=== PATIENT | male | born 1940 | race Caucasian/White ===

== ENCOUNTER → 2018-02-17 06:02 | Outpatient (CLI) | payer MEDICARE, OTHER, SELFPAY ==
[2018-02-17 07:52] LABS: AST(SGOT) 21 U/L (15-37); Alanine Aminotransfer ALT/SGPT 21 U/L (16-61); Albumin, Serum 3.7 g/dL (3.2-5.0); Alkaline Phosphatase 77 U/L (45-117); Bilirubin, Direct 0.32 mg/dL (0.00-0.30); Cholesterol 108 mg/dL (200); High Density Lipoprotein 51 mg/dL; Protein, Total 6.7 g/dL (6.4-8.2); Triglycerides 60 mg/dL; Very Low Density Lipoprotein 12 mg/dL (5-40)
== END ==
PROVIDERS: Family Provider Family Medicine Geriatric Medicine; PCP Family Medicine Geriatric Medicine; Visit Provider Nurse Practitioner Family
DX: E78.5 Hyperlipidemia, unspecified (principal); Z79.899 Other long term (current) drug therapy
CPT/HCPCS: 36415; 80061; 80076

== ENCOUNTER → 2018-03-31 15:12 | Outpatient (CLI) | payer MEDICARE, OTHER, SELFPAY ==
[2018-03-31 16:44] LABS: Absolute Lymphocyte Count 1.12 X10^3/ul (0.83-4.51); Absolute Neutrophil Count 1.7 X10^3/uL (2.0-7.7); Basophil# 0.02 X10^3/uL; Basophil% 0.6 % (0-1); Eosinophil# 0.11 X10^3/uL; Eosinophils% 3.3 % (0-5); Hematocrit 36.3 % (40-54); Hemoglobin 11.7 g/dl (13.0-16.5); Lymphocyte # 1.12 X10^3/ul (4.0); Lymphocyte % 33.1 % (19-41); Mean Corp Hgb Conc 32.2 g/gl (32-36); Mean Corpuscular Hgb 30.6 pg (27.0-32.0); Monocyte# 0.45 X10^3/uL; Monocyte% 13.3 % (0-10); Neutrophil # 1.68 X10^3/uL (2.7-7.7); Neutrophil % 49.7 % (47-70); Platelet Count 219 K/mm3 (150-450); RBC Distribution Width CV 13.2 % (11.6-14.6); RBC Distribution Width SD 45.6 fl (35.1-43.9); Red Blood Count 3.82 M/mm3 (4.6-6.2); White Blood Count 3.4 K/mm3 (4.4-11.0)
[2018-03-31 16:56] LABS: Anion Gap 7 (5-15); BUN 19 mg/dL (7-18); BUN/Creat Ratio 16.7 RATIO (10-20); Calcium,Total 8.4 mg/dL (8.5-10.1); Chloride 106 mmol/L (98-107); Creatinine, Serum 1.14 mg/dL (0.70-1.30); EST Glomerular Filtration Rate 66 mL/min (>60); Est Glom Filt Rate - Afr Amer 80 mL/min (>60); Glucose 89 mg/dL (74-106); Potassium 4.2 mmol/L (3.5-5.1); Sodium Level 141 mmol/L (136-145)
[2018-03-31 17:11] LABS: POSITIVE COUNT NO; POSITIVE DIFFERENTIAL NO; POSITIVE MORPHOLOGY NO
== END ==
PROVIDERS: Family Provider Family Medicine Geriatric Medicine; PCP Family Medicine Geriatric Medicine; Visit Provider Family Medicine Geriatric Medicine
DX: R42 Dizziness and giddiness (principal)
CPT/HCPCS: 36415; 80048; 85025

== ENCOUNTER → 2018-05-21 08:44 | Outpatient (CLI) | payer MEDICARE, OTHER, SELFPAY ==
[2018-05-21 10:47] LABS: Absolute Lymphocyte Count 1.04 X10^3/ul (0.83-4.51); Absolute Neutrophil Count 2.4 X10^3/uL (2.0-7.7); Basophil# 0.01 X10^3/uL; Basophil% 0.2 % (0-1); Eosinophil# 0.13 X10^3/uL; Eosinophils% 3.2 % (0-5); Hematocrit 37.1 % (40-54); Hemoglobin 11.9 g/dl (13.0-16.5); Lymphocyte # 1.04 X10^3/ul (4.0); Lymphocyte % 25.5 % (19-41); Mean Corp Hgb Conc 32.1 g/gl (32-36); Mean Corpuscular Hgb 31.2 pg (27.0-32.0); Mean Corpuscular Volume 97.4 fL (80-94); Mean Platelet Vol. 9.9 fl (6.2-12.0); Monocyte# 0.47 X10^3/uL; Monocyte% 11.5 % (0-10); Neutrophil # 2.43 X10^3/uL (2.7-7.7); Neutrophil % 59.6 % (47-70); Platelet Count 229 K/mm3 (150-450); RBC Distribution Width SD 44.8 fl (35.1-43.9); Red Blood Count 3.81 M/mm3 (4.6-6.2); White Blood Count 4.1 K/mm3 (4.4-11.0)
[2018-05-21 10:49] LABS: POSITIVE COUNT NO; POSITIVE DIFFERENTIAL NO; POSITIVE MORPHOLOGY NO
[2018-05-21 11:09] LABS: ALB/GLOB Ratio 1.1 RATIO (0.9-2.4); AST(SGOT) 19 U/L (15-37); Alanine Aminotransfer ALT/SGPT 23 U/L (16-61); Albumin, Serum 3.5 g/dL (3.2-5.0); Alkaline Phosphatase 76 U/L (45-117); Anion Gap 6 (5-15); BUN 25 mg/dL (7-18); BUN/Creat Ratio 20.5 RATIO (10-20); Calcium,Total 8.6 mg/dL (8.5-10.1); Chloride 106 mmol/L (98-107); Creatinine, Serum 1.22 mg/dL (0.70-1.30); EST Glomerular Filtration Rate 61 mL/min (>60); Est Glom Filt Rate - Afr Amer 74 mL/min (>60); Globulin 3.1 g/dL (2.2-4.2); Glucose 86 mg/dL (74-106); Potassium 4.5 mmol/L (3.5-5.1); Protein, Total 6.6 g/dL (6.4-8.2); Sodium Level 141 mmol/L (136-145); Thyroid Stim Hormone (TSH) 1.13 uIU/mL (0.358-3.74); Uric Acid 4.3 mg/dL (3.5-7.2)
[2018-05-21 11:12] LABS: Vitamin D,25 Hydroxy 27.1 ng/mL (29.95-100.01)
== END ==
PROVIDERS: Family Provider Family Medicine Geriatric Medicine; PCP Family Medicine Geriatric Medicine; Visit Provider Family Medicine Geriatric Medicine
DX: I10 Essential (primary) hypertension (principal); M10.9 Gout, unspecified; E55.9 Vitamin D deficiency, unspecified
CPT/HCPCS: 36415; 80053; 82306; 84443; 84550; 85025

== ENCOUNTER → 2018-10-30 10:33 | Outpatient (CLI) | payer MEDICARE, OTHER, SELFPAY ==
[2018-09-29 12:01] VITALS: BMI 36.6
[2018-10-30 12:36] LABS: Absolute Lymphocyte Count 0.94 X10^3/ul (0.83-4.51); Basophil# 0.03 X10^3/uL; Basophil% 0.9 % (0-1); Eosinophils% 2.9 % (0-5); Lymphocyte # 0.94 X10^3/ul (4.0); Lymphocyte % 27.1 % (19-41); Mean Corp Hgb Conc 31.6 g/gl (32-36); Mean Corpuscular Hgb 29.8 pg (27.0-32.0); Mean Corpuscular Volume 94.3 fL (80-94); Mean Platelet Vol. 10.5 fl (6.2-12.0); Monocyte# 0.42 X10^3/uL; Monocyte% 12.1 % (0-10); Neutrophil # 1.97 X10^3/uL (2.7-7.7); Neutrophil % 56.7 % (47-70); Platelet Count 228 K/mm3 (150-450); RBC Distribution Width CV 13.5 % (11.6-14.6); RBC Distribution Width SD 46.2 fl (35.1-43.9); Red Blood Count 4.03 M/mm3 (4.6-6.2); White Blood Count 3.5 K/mm3 (4.4-11.0)
[2018-10-30 12:39] LABS: POSITIVE COUNT NO; POSITIVE DIFFERENTIAL NO; POSITIVE MORPHOLOGY NO
[2018-10-30 12:54] LABS: Vitamin D,25 Hydroxy 36.8 ng/mL (29.95-100.01)
[2018-10-30 12:59] LABS: ALB/GLOB Ratio 1.1 RATIO (0.9-2.4); AST(SGOT) 20 U/L (15-37); Alanine Aminotransfer ALT/SGPT 23 U/L (16-61); Albumin, Serum 3.5 g/dL (3.2-5.0); Alkaline Phosphatase 74 U/L (45-117); Anion Gap 8 (5-15); BUN 26 mg/dL (7-18); BUN/Creat Ratio 21.8 RATIO (10-20); Calcium,Total 8.6 mg/dL (8.5-10.1); Chloride 107 mmol/L (98-107); Creatinine, Serum 1.19 mg/dL (0.70-1.30); EST Glomerular Filtration Rate 63 mL/min (>60); Est Glom Filt Rate - Afr Amer 76 mL/min (>60); Globulin 3.2 g/dL (2.2-4.2); Glucose 95 mg/dL (74-106); Potassium 4.4 mmol/L (3.5-5.1); Protein, Total 6.7 g/dL (6.4-8.2); Sodium Level 143 mmol/L (136-145); Thyroid Stim Hormone (TSH) 0.83 uIU/mL (0.358-3.74); Uric Acid 3.8 mg/dL (3.5-7.2)
== END ==
PROVIDERS: Family Provider Family Medicine Geriatric Medicine; PCP Family Medicine Geriatric Medicine; Visit Provider Family Medicine Geriatric Medicine
DX: E55.9 Vitamin D deficiency, unspecified (principal); I10 Essential (primary) hypertension
CPT/HCPCS: 36415; 80053; 82306; 84443; 84550; 85025

== ENCOUNTER → 2018-11-14 07:49 | Outpatient (CLI) | payer MEDICARE, OTHER, SELFPAY ==
--- NOTE | 2018-11-14 07:59 | RAD_ITS ---
CLINICAL HISTORY: Male, 78 years old. Chronic left shoulder pain. PROCEDURE: ARTHROGRAM - LEFT SHOULDER CONSENT: The procedure as well as the benefits and possible complications including bleeding and infection were explained to the patient. Informed consent was obtained. FLUOROSCOPY TIME (if supplied): (0:40) minutes/seconds Injection Information: 15 cc of a dilute MRI contrast. Number of images obtained: 4 TECHNIQUE: (All elements of maximal sterile barrier technique followed, including US elements as applicable) The patient was in the supine position. The overlying skin was prepped and draped in the usual sterile fashion. Following local anesthetic application and under direct fluoroscopic guidance, a 22-gauge spinal needle was placed into the shoulder joint. 2 cc of Isovue-300 was injected for confirmation. Following this, 15 cc of dilute MRI contrast was injected. The patient tolerated the procedure well. A CT scan will follow. RAD/Arthrogram Shoulder IMPRESSION: Successful left shoulder arthrogram with injection of 15 cc of dilute MR contrast for CT examination. Electronically Signed: Zen Katz MD at 11:17 EST Tel [phone], Service support ,
--- NOTE | 2018-11-14 08:00 | CT_ITS ---
STUDY: CT LEFT SHOULDER REASON FOR EXAM: Male, 78 years old. Left shoulder pain status post arthrogram. RADIATION DOSAGE (If Supplied By Facility): CTDIvol = ( 49 ) mGy, DLP = ( 1248 ) mGycm TECHNIQUE: The patient was scanned in a multi detector CT scanner. High resolution transaxial imaging was performed without the administration of intravenous contrast material. Sagittal and coronal images were reconstructed. Individualized dose optimization techniques were used for this CT. COMPARISON: None. FINDINGS: There is severe osteoarthritis, with severe articular joint space narrowing, osteoarthritic spurring, articular remodeling, and with articular erosions. There is near ufrw-ve-agmu articulation of the superior humeral head abutting the underlying acromion. Sclerotic changes of the glenoid rim are present consistent with arthrosis. Demineralization of the humeral head and visualized humerus are present. Normal coracoid process. Normal visualized lateral clavicle. There is moderate osteoarthritis with articular joint space narrowing and with osteoarthritic spurring. There is a Type II morphology (curved), with a neutral orientation. Normal visualized muscles and soft tissue structures. CT/Extremity Upper WITH Contrast IMPRESSION: 1. Severe glenohumeral arthrosis with high riding humeral head abutting the underlying acromion consistent with supraspinatus complete tear the appropriate clinical setting. Additional degenerative changes and demineralization as described above. Electronically Signed: Santiago Pantoja DO at 8:45 EST , Service support ,
== END ==
PROVIDERS: Family Provider Family Medicine Geriatric Medicine; PCP Family Medicine Geriatric Medicine; Referring Provider Family Medicine Geriatric Medicine; Visit Provider Family Medicine Geriatric Medicine
DX: M75.50 Bursitis of unspecified shoulder (principal); M25.519 Pain in unspecified shoulder
CPT/HCPCS: 23350; 73040; 73201; Q9967; A9577

== ENCOUNTER → 2019-04-21 07:42 | Outpatient (CLI) | payer MEDICARE, OTHER, SELFPAY ==
[2019-04-02 15:13] VITALS: BMI 34.2
--- NOTE | 2019-04-21 07:44 | ECHOD_ITS ---
Reason For Study: CHF Procedure This was a 2D Doppler, Color Flow transthoracic echocardiogram. Exam performed in department. Left Ventricle Mild concentric left ventricular hypertrophy. The estimated ejection fraction is 65 %. Stage 1 diastolic dysfunction. No regional wall motion abnormalities noted. Right Ventricle Normal size and thickness. ICD or pacer leads identified within the right ventricle. Normal systolic function. Atria The left atrium is moderately enlarged. Normal right atrium. Normal atrial septum. Mitral Valve The mitral valve is structurally normal. No prolapse or stenosis seen. Trivial mitral valve insufficiency. Tricuspid Valve Normal tricuspid valve. Trivial tricuspid valve insufficiency. Right ventricular systolic pressure estimated to be 38 mmHg. Mild pulmonary hypertension. Aortic Valve Trisinus/trileaflet aortic valve. Mild diffuse aortic valve thickening. Mild (1+) aortic valve insufficiency. Pulmonic Valve Normal pulmonic valve. Trivial pulmonic valve insufficiency. Great Vessels Mildly dilated aortic root. Normal arch. Normal inferior vena cava. Inferior vena cava collapse with sniff. Pericardium/Pleural No pericardial effusion. MMode/2D Measurements & Calculations LVIDd: 6.0 cm IVSd: 1.4 cm LVOT diam: 2.4 cm LVIDs: 4.2 cm LVPWd: 1.3 cm LVOT area: 4.6 cm2 RVDd: 3.4 cm FS: 30.7 % Ao root diam: 4.1 cm LAV(MOD-bp): 98.7 ml LA A4 area: 27.9 cm2 LAV(MOD-bp) Indexed: 43.3 ml/m2 LAV(MOD-sp2): 99.3 ml LAV(MOD-sp4): 99.0 ml LA dimension(2D): 4.2 cm Doppler Measurements & Calculations MV E max estuardo: 39.9 cm/sec Lat Peak E' Estuardo: 4.7 cm/sec Med Peak E' Estuardo: 4.1 cm/sec MV A max estuardo: 79.3 cm/sec E/E' lat: 8.5 E/E' med: 9.7 MV E/A: 0.50 Ao V2 max: 122.0 cm/sec AI max estuardo: 376.8 cm/sec LV V1 max: 97.4 cm/sec Ao max P.0 mmHg AI max P.8 mmHg LV V1 max P.8 mmHg Ao V2 mean: 91.6 cm/sec LV V1 mean P.0 mmHg Ao mean P.6 mmHg AI dec slope: 155.7 cm/sec2 LV V1 mean: 67.7 cm/sec Ao V2 VTI: 27.9 cm AI P1/2t: 708.9 msec LV V1 VTI: 21.0 cm CHENG(I,D): 3.5 cm2 CHENG(V,D): 3.7 cm2 SV(LVOT): 96.3 ml PA V2 max: 106.7 cm/sec TR max estuardo: 276.7 cm/sec TR max P.7 mmHg Interpretation Summary The estimated ejection fraction is 65 %. Stage 1 diastolic dysfunction. The left atrium is moderately enlarged. Trivial mitral valve insufficiency. Trivial tricuspid valve insufficiency. Right ventricular systolic pressure estimated to be 38 mmHg. Mild pulmonary hypertension. Mild (1+) aortic valve insufficiency. Mildly dilated aortic root. Compared to echo report dated 09/10/2017, LV function has remained the same, RVSP has increased from 22 to 38 mm Hg. Ordering Physician: Dov Loja Referring Physician: Richard Morley Chi Performed By: Mena Barnhart, MAYITO, RVT
== END ==
PROVIDERS: Family Provider Family Medicine Geriatric Medicine; PCP Family Medicine Geriatric Medicine; Referring Provider Internal Medicine Cardiovascular Disease; Visit Provider Internal Medicine Cardiovascular Disease
DX: I44.7 Left bundle-branch block, unspecified (principal)
CPT/HCPCS: 93306

== ENCOUNTER → 2019-04-23 08:27 | Outpatient (CLI) | payer MEDICARE, OTHER, SELFPAY ==
[2019-04-02 15:13] VITALS: BMI 34.2
--- NOTE | 2019-04-23 08:28 | STE_ITS ---
Reason For Study: CHF Stress Results Protocol: Dobutatmine Stress Echo Maximum Predicted HR: 144 bpm Target HR: 122 bpm % Maximum Predicted HR: 88 % DurationHeart Rate Stage (mm:ss) (bpm) BP Dose Comment BASELINE 60 198/91 NTG 0.4 MG SL GIVEN @ 0933. BP 157/87 ADDIS PROTOCOL- STAGE 1 3:23 64 161/8910.00PACED, ISOLATED PVCS, BIGEMINY NO CP ADDIS PROTOCOL- STAGE 2 3:08 120 131/6420.00PACED, NO CP ADDIS PROTOCOL- STAGE 3 2:54 126 .00PACED, NO CP RECOVERY 61 146/80 ISOLATED PVCS, COUPLETS, TRIPLETS Stress Duration: 9:25 mm:ss Maximum Stress HR: 126 bpm Baseline Echocardiogram Findings The estimated ejection fraction is 55 %. Stress Echo Wall motion Data Resting WM Intermediate WM Stress WM Resting Wall Motion Wall Motion Stress No regional wall motion No regional wall motion abnormalities noted. abnormalities noted. EKG Data DDD paced rhythm. The patient was titrated from 10 mcg to a maximun of 30 mcg of dobutamine during the stress. The maximum heart rate attained was 126 beats per minute. This was 87% of maximum predicted heart rate. During dobutamine infusion, there were no ST or T wave changes noted to suggest ischemia. No clinical angina was noted. Interpretation Summary The estimated ejection fraction is 55 %. Normal, adequate, dobutamine echocardiogram. Negative for ischemia by EKG and echocardiographic anterior. No anginal symptoms noted. Rare PVCs noted. Patient transitioned into a paced ventricular rhythm during infusion. Baseline moderate hypertension requiring sublingual nitroglycerin prior to his infusion, with hypertensive blood pressure response to dobutamine. Rare ventricular couplet which is a nonspecific finding given dobutamine. Final LVEF is 75%. Test terminated due to the attainment of target heart rate. No complications. Ordering Physician: Dov Loja Referring Physician: Dov Loja Performed By: Mena Barnhart, MAYITO, RVT
== END ==
PROVIDERS: Family Provider Family Medicine Geriatric Medicine; PCP Family Medicine Geriatric Medicine; Referring Provider Internal Medicine Cardiovascular Disease; Visit Provider Internal Medicine Cardiovascular Disease
DX: I48.0 Paroxysmal atrial fibrillation (principal); Z95.810 Presence of automatic (implantable) cardiac defibrillator; Z98.890 Other specified postprocedural states; I10 Essential (primary) hypertension; I42.0 Dilated cardiomyopathy
CPT/HCPCS: 93017; 93350; J7040; A4216

== ENCOUNTER → 2019-05-05 10:03 | Outpatient (CLI) | payer MEDICARE, OTHER, SELFPAY ==
[2019-04-02 15:13] VITALS: BMI 34.2
[2019-05-05 12:45] LABS: Absolute Lymphocyte Count 0.93 X10^3/ul (0.83-4.51); Absolute Neutrophil Count 2.8 X10^3/uL (2.0-7.7); Basophil# 0.03 X10^3/uL; Basophil% 0.7 % (0-1); Eosinophil# 0.19 X10^3/uL; Eosinophils% 4.1 % (0-5); Hematocrit 36.5 % (40-54); Hemoglobin 11.6 g/dl (13.0-16.5); Lymphocyte # 0.93 X10^3/ul (4.0); Lymphocyte % 20.3 % (19-41); Mean Corp Hgb Conc 31.8 g/gl (32-36); Mean Corpuscular Hgb 30.3 pg (27.0-32.0); Mean Corpuscular Volume 95.3 fL (80-94); Mean Platelet Vol. 10.4 fl (6.2-12.0); Monocyte# 0.61 X10^3/uL; Monocyte% 13.3 % (0-10); Neutrophil # 2.82 X10^3/uL (2.7-7.7); Neutrophil % 61.6 % (47-70); Platelet Count 223 K/mm3 (150-450); RBC Distribution Width CV 13.6 % (11.6-14.6); RBC Distribution Width SD 46.8 fl (35.1-43.9); Red Blood Count 3.83 M/mm3 (4.6-6.2); White Blood Count 4.6 K/mm3 (4.4-11.0)
[2019-05-05 12:59] LABS: Vitamin D,25 Hydroxy 27.8 ng/mL (29.95-100.01)
[2019-05-05 13:07] LABS: ALB/GLOB Ratio 1.1 RATIO (0.9-2.4); AST(SGOT) 18 U/L (15-37); Alanine Aminotransfer ALT/SGPT 20 U/L (16-61); Albumin, Serum 3.5 g/dL (3.2-5.0); Alkaline Phosphatase 91 U/L (45-117); Anion Gap 3 (5-15); BUN 21 mg/dL (7-18); BUN/Creat Ratio 16.7 RATIO (10-20); Calcium,Total 8.9 mg/dL (8.5-10.1); Chloride 106 mmol/L (98-107); Creatinine, Serum 1.26 mg/dL (0.70-1.30); EST Glomerular Filtration Rate 59 mL/min (>60); Est Glom Filt Rate - Afr Amer 71 mL/min (>60); Globulin 3.1 g/dL (2.2-4.2); Glucose 80 mg/dL (74-106); Potassium 4.3 mmol/L (3.5-5.1); Protein, Total 6.6 g/dL (6.4-8.2); Sodium Level 139 mmol/L (136-145); Thyroid Stim Hormone (TSH) 0.88 uIU/mL (0.358-3.74); Uric Acid 4.5 mg/dL (3.5-7.2)
[2019-05-05 13:12] LABS: POSITIVE COUNT NO; POSITIVE DIFFERENTIAL NO; POSITIVE MORPHOLOGY NO
== END ==
PROVIDERS: Family Provider Family Medicine Geriatric Medicine; PCP Family Medicine Geriatric Medicine; Visit Provider Family Medicine Geriatric Medicine
DX: I10 Essential (primary) hypertension (principal); E55.9 Vitamin D deficiency, unspecified; M10.9 Gout, unspecified
CPT/HCPCS: 36415; 80053; 82306; 84443; 84550; 85025

== ENCOUNTER → 2019-05-26 17:16 | Outpatient (CLI) | payer MEDICARE, OTHER, SELFPAY ==
[2019-04-02 15:13] VITALS: BMI 34.2
--- NOTE | 2019-05-26 17:19 | CT_ITS ---
STUDY: CT LUMBAR SPINE WITH CONTRAST REASON FOR EXAM: Male, 79 years old. DISC DEGENERATION. R/O NEURAL IMPINGEMENT. RADIATION DOSAGE (If Supplied By Facility): CTDIvol = ( 33.93 ) mGy, DLP = ( 943.58 ) mGycm TECHNIQUE: The patient was scanned in a multi detector CT scanner. High resolution transaxial imaging was performed following the intravenous administration of 100ML IV Isovue 300. Sagittal and coronal images were reconstructed. Individualized dose optimization techniques were used for this CT. COMPARISON: 03/26/2012 FINDINGS: Since prior exam patient has had fusion at L3-L4. Partial fusion at L4-L5 is stable. Otherwise stable multilevel degenerative disc disease and loss of disc height and vacuum phenomenon. Multilevel spondylosis. No compression fractures or definite acute abnormalities. There is straightening. There is normal lordosis. There is rightward shift of L3 on L4 which is worse than on the prior exam. Axial images show: T12-L1 shows no spinal stenosis or neural foraminal narrowing. L1-L2 shows broad disc bulge worse to the left. Moderate spinal stenosis. Moderate bilateral neural foraminal narrowing. L2-L3 shows moderate spinal stenosis. Moderate narrowing of the right neural foramina. Severe narrowing of the left neural foramina. L3-L4 shows broad disc bulge. Mild spinal stenosis. Moderate narrowing of the right neural foramina. Severe narrowing of the left neural foramina. L4-L5 shows broad disc bulge. No spinal stenosis. Moderate to severe narrowing of the right neural foramina. Moderate narrowing of left neural foramina. L5-S1 shows no spinal stenosis. Moderate bilateral neural foraminal narrowing. Visualized paraspinal soft tissues and structures show no definite acute abnormalities. CT/Spine Lumbar WITH Contrast IMPRESSION: Progressive rightward slip of L3 on L4 that there is now also fusion of the L3-L4 disc space. Multilevel moderate to severe degenerative changes grossly stable. Multilevel spinal stenosis and neural foraminal narrowing. Electronically Signed: Mariusz Mcfarland MD at 19:01 EDT , Service support ,
== END ==
PROVIDERS: Family Provider Family Medicine Geriatric Medicine; PCP Family Medicine Geriatric Medicine
DX: M51.36 Other intervertebral disc degeneration, lumbar region (principal)
CPT/HCPCS: 72132; Q9967

== ENCOUNTER → 2019-08-31 14:08 | Outpatient (CLI) | payer MEDICARE, OTHER, SELFPAY ==
[2019-04-02 15:13] VITALS: BMI 34.2
[2019-08-31 17:07] LABS: Amphetamine Urine VISTA NEGATIVE (<1000 ng/mL); Barbiturate Urine VISTA NEGATIVE (< 200 ng/mL); Benzodiazepine Urine VISTA NEGATIVE (< 200 ng/mL); Cocaine Urine VISTA NEGATIVE (< 300 ng/mL); Ecstacy Urine VISTA NEGATIVE (< 500 ng/mL); Methadone Urine VISTA NEGATIVE (< 300 ng/mL); PCP Urine VISTA NEGATIVE (< 25 ng/mL); THC Urine VISTA NEGATIVE (< 50 ng/mL); Vista UDS pH Range 6
== END ==
PROVIDERS: Family Provider Family Medicine Geriatric Medicine; PCP Family Medicine Geriatric Medicine; Referring Provider Anesthesiology Pain Medicine; Visit Provider Anesthesiology Pain Medicine
DX: F11.20 Opioid dependence, uncomplicated (principal)
CPT/HCPCS: 80307

== ENCOUNTER 2019-10-21 18:22 | Emergency (ER) | payer MEDICARE, OTHER, SELFPAY ==
[2019-04-02 15:13] VITALS: BMI 34.2
[2019-10-21 18:23] VITALS: BP 164/77; PULSE 60; RESP 18; TEMP 36.1; O2SAT 97; BMI 33.5
--- NOTE | 2019-10-21 18:37 | CT_ITS ---
STUDY: CT ABDOMEN AND PELVIS WITHOUT CONTRAST REASON FOR EXAM: Male, 79 years old. Left flank pain. History of resection for testicular cancer. Additional history of appendectomy, atrial fibrillation, pacemaker, hypertension RADIATION DOSAGE (If Supplied By Facility): CTDIvol = ( 21.86 ) mGy, DLP = ( 1081.57 ) mGycm TECHNIQUE: Transaxial images were obtained from the dome of the diaphragm to the symphysis pubis without oral contrast, and without intravenous contrast. Sagittal and coronal images were reconstructed. Individualized dose optimization techniques were used for this CT. COMPARISON: None. FINDINGS: There is tzyi-zq-uqexkbuz elevation of the right diaphragm. The visualized lung bases are clear. The heart size is normal. Leads of a cardiac pacemaker are seen in the right heart and coronary sinus. There is atherosclerotic calcification in the left anterior descending coronary artery. Too numerous to count punctate calcified granulomata are scattered throughout the normal-sized liver. The portal vein diameter is 13.5 mm. Normal gallbladder and extrahepatic biliary system. There are multiple benign calcified granulomata of the spleen. Normal pancreas. Normal bilateral adrenal glands. Multilobulated contour of the right kidney with occasional sites of focal cortical thinning. A 2.05 x 2.45 x 2.05 cm hypodense cortical cyst seen at the anterior hilar lip. There is a second 1.45 cm cortical cyst at the lateral midpole. A pair of 1-2 mm calcifications in the upper pole may be nonobstructing stones. There is a nonobstructing 10.5 x 6 x 4.5 mm stone in the distal most right ureter near the ureterovesical junction. Lobulated contour and multifocal cortical thinning of the left kidney 1.9 x 1.95 x 2.15 cm cortical cyst seen in the lateral midpole. There are a few other subcentimeter cortical cysts, as well as 1.45 old Notify bone 25 cm hypodensity at the corticomedullary junction of the posterior midpole that could be an additional cyst or dilated calyx. No hydronephrosis, however. There is a small to moderate-sized hiatal hernia. Normal small intestine. There is some cephalad retraction of the cecum, otherwise normal colon. There is non-visualization of the appendix. There is diffuse moderate atherosclerotic calcification of the abdominal aorta and proximal iliac arteries, slight uniform ectasia but without a demonstrated focal aneurysm. Normal inferior vena cava. Normal retroperitoneum. Normal urinary bladder. Normal visualized prostate gland. Normal abdominal wall. There are diffuse degenerative changes of the visualized lumbar spine with multilevel bridging anterolateral endplate osteophyte. There is a fused 1.3 cm rightward displacement of L3 on L4 resulting in a mild mid lumbar S-shaped scoliosis. There is degenerative arthrosis with near bridging anterior osteophytes at the inferior aspect of the right sacroiliac joint. CT/Abdomen/Pelvis without Cont IMPRESSION: 1. Nonobstructing 10 mm stone in the distal most right ureter. A pair of 1-2 mm nonobstructing stones are also seen in the right upper pole. No hydronephrosis. 2. Bilateral renal cortical cysts and occasional sites of focal bilateral renal cortical thinning, as noted. 3. There are findings of old calcified granulomatous disease involving the liver and spleen. 4. Atherosclerotic vascular calcifications present. Slight uniform ectasia of the abdominal aorta, but no defined aneurysm. 5. Small to moderate-sized hiatal hernia. 6. Some cephalad retraction of the cecum is incidentally noted. The appendix is not visualized. No sign of bowel injection. 7. Eaqi-hf-uoycoati elevation of right diaphragm. 8. Rightward displacement of L3 on L4 resulting in a mild mid lumbar S-shaped scoliosis. There are degenerative changes of the spine with multilevel bridging anterolateral endplate osteophyte. Near bridging osteophytes also seen at the inferior right sacroiliac joint. Electronically Signed: Troy Browne MD at 19:41 EST , Service support ,
--- NOTE | 2019-10-21 18:39 | ED.DCSUM_ITS ---
- ER Visit Summary Date of Service: 10/21/19 Chief Complaint: Flank pain History of Present Illness: The patient is a 79 M who presents with left flank pain that has been waxing and waning over the past few days. Patient describes his pain is sharp and stabbing. Patient states his pain improved after having a bowel movement. Patient states his pain is recurred. Patient states the pain is localized to the left lower abdomen and left flank. Patient denies any nausea or vomiting. Patient denies any melena or hematochezia. Patient denies any diarrhea. Patient denies any dysuria or hematuria. Patient denies any fevers or chills. Physical Examination: Vital signs are stable. Patient is afebrile. Patient is in no acute distress. Oral mucosa is pink and moist. Neck is supple. Trachea is midline. There is no JVD. Heart was regular rate and rhythm. Lungs are clear and equal bilaterally. Abdomen is soft. Bowel sounds are normal. There is mild left lower quadrant tenderness. There is some mild left CVA tenderness. There is no rebound or guarding noted. Cranial nerves II through XII are intact. There are no focal motor or sensory deficits noted. Test Results: CBC shows a mild anemia with a hemoglobin of 11.7 and hematocrit 36.5. White blood cell count was normal. BUN was 28 and creatinine was 1.32. Urinalysis does not show any evidence of urinary tract infection. CT scan of the abdomen and pelvis was obtained. There is a 10.5 x 6 x 4.5 mm stone in the distal right ureter near the ureterovesicular junction. There is no obstruction noted. There is no evidence of diverticulosis or diverticulitis. There is no left ureteral calculus noted. This was interpreted by the radiologist and reviewed by myself. Emergency Department Course and Treatment: Patient was given IV fluids and morphine here. Patient had some improvement on reevaluation. Patient was given a prescription for [place]. Patient was instructed to follow-up with his primary care physician in 5 to 7 days. Patient understood and was agreeable with the plan. All questions were answered. Disposition: Discharge home Impression: Left lower quadrant abdominal pain This note was generated with [employer] software. It may contain incorrect words, spelling, and punctuation that were not noted in review of the chart prior to signing ED Disposition - Plan for ED Patient: Disposition: Home or Assisted Living Diagnosis: Left lower quadrant abdominal pain of unknown etiology Instructions: FLANK PAIN, Uncertain Cause Prescriptions: Hydrocodone Bitart/Apap 5-325 [[place] 5MG-325MG] 1 tab PO Q6H PRN PRN 3 Days #10 tab PRN Reason: Pain Prescription Printed Referrals: Richard Morley Chi, MD [Primary Care Provider] - 3-5 Days
[2019-10-21] MEDS: Morphine 4 MG/ML Syringe IV (19:08)
[2019-10-21] MEDS: 0.9% Normal Saline 1,000 ML 1000 ML IV (19:09)
[2019-10-21 19:11] LABS: Bacteria 0 SEEN /hpf (None Seen); Red Blood Cells-Urine 0 SEEN /hpf (0-5); Squamous Epithelial Cells - UA 0 SEEN /hpf (0-5); White Blood Cells 0 SEEN /hpf (0-5)
[2019-10-21 19:15] LABS: Absolute Lymphocyte Count 1.27 X10^3/uL (0.83-4.51); Basophil# 0.03 X10^3/uL; Basophil% 0.6 % (0-1); Eosinophil# 0.15 X10^3/uL; Eosinophils% 2.9 % (0-5); Hematocrit 36.5 % (40-54); Hemoglobin 11.7 g/dL (13.0-16.5); Lymphocyte # 1.27 X10^3/ul (4.0); Lymphocyte % 24.5 % (19-41); Mean Corp Hgb Conc 32.1 g/dL (32-36); Mean Corpuscular Hgb 31.5 pg (27.0-32.0); Mean Corpuscular Volume 98.4 fL (80-94); Mean Platelet Vol. 9.3 fl (6.2-12.0); Monocyte% 13.5 % (0-10); NRBC Flagged by Analyzer 0 % (0-5); Neutrophil # 3.03 X10^3/uL (2.7-7.7); Neutrophil % 58.5 % (47-70); Platelet Count 226 K/mm3 (150-450); RBC Distribution Width CV 12.9 % (11.6-14.6); RBC Distribution Width SD 46.5 fl (35.1-43.9); Red Blood Count 3.71 M/mm3 (4.6-6.2); White Blood Count 5.2 K/mm3 (4.4-11.0)
[2019-10-21 19:16] LABS: Color, Urine Yellow (Yellow); Glucose, Dipstick Normal (Normal); Ketone-Dipstick Negative (Negative); Leukocyte Esterase-Dipstick Negative /ul (Negative); Nitrite-Dipstick Negative (Negative); Occult Blood-Urine 10 /ul (Negative); Protein-Dipstick Negative (Negative); Urine Bilirubin Dipstick Negative (Negative); Urine Clarity Clear (Clear); Urine Urobilinogen Normal (Normal)
[2019-10-21 19:28] LABS: Hyaline Cast 0-5 SEEN /lpf (0-5); Mucous, Urine 1+ /hpf (<or=2+)
[2019-10-21 19:37] LABS: ALB/GLOB Ratio 1.3 RATIO (0.9-2.4); AST(SGOT) 18 U/L (15-37); Alanine Aminotransfer ALT/SGPT 19 U/L (16-61); Albumin, Serum 3.8 g/dL (3.2-5.0); Alkaline Phosphatase 91 U/L (45-117); Anion Gap 6 (5-15); BUN 28 mg/dL (7-18); BUN/Creat Ratio 21.2 RATIO (10-20); Chloride 103 mmol/L (98-107); Creatinine, Serum 1.32 mg/dL (0.70-1.30); EST Glomerular Filtration Rate 56 mL/min (>60); Est Glom Filt Rate - Afr Amer 68 mL/min (>60); Estimated Creatinine Clearance 49.91 ml/min; Globulin 2.9 g/dL (2.2-4.2); Glucose 100 mg/dL (74-106); Lipase 78 U/L (73-393); Potassium 4.3 mmol/L (3.5-5.1); Protein, Total 6.7 g/dL (6.4-8.2); Sodium Level 139 mmol/L (136-145)
[2019-10-21 21:28] VITALS: BP 171/74
== END 2019-10-21 21:29 | disposition home or self-care (01) ==
PROVIDERS: Emergency Provider Emergency Medicine; Family Provider Family Medicine Geriatric Medicine; PCP Family Medicine Geriatric Medicine
DX: R10.9 Unspecified abdominal pain (principal); R10.32 Left lower quadrant pain; I10 Essential (primary) hypertension; I48.91 Unspecified atrial fibrillation; K44.9 Diaphragmatic hernia without obstruction or gangrene; M51.26 Other intervertebral disc displacement, lumbar region; N28.1 Cyst of kidney, acquired; Z85.47 Personal history of malignant neoplasm of testis; Z90.49 Acquired absence of other specified parts of digestive tract; Z95.0 Presence of cardiac pacemaker; E78.00 Pure hypercholesterolemia, unspecified; K21.9 Gastro-esophageal reflux disease without esophagitis
CPT/HCPCS: 74176; 80053; 81001; 83690; 85025; 96361; 96374; 99284; J7030

== ENCOUNTER 2019-10-31 16:21 | Emergency (ER) | payer MEDICARE, OTHER, SELFPAY ==
[2019-10-29 13:15] VITALS: BMI 33.2
[2019-10-31 16:22] VITALS: BP 162/84; PULSE 60; RESP 18; TEMP 36.4; O2SAT 98; BMI 34.9
--- NOTE | 2019-10-31 16:57 | CT_ITS ---
STUDY: CT BRAIN WITHOUT CONTRAST REASON FOR EXAM: Male, 79 years old. Fell today. Laceration right eye. On blood thinners RADIATION DOSAGE (If Supplied By Facility): CTDIvol = ( 44.99 ) mGy, DLP = ( 796.11 ) mGycm TECHNIQUE: Transaxial CT imaging of the brain was performed without administration of intravenous contrast material. Individualized dose optimization techniques were used for this CT. COMPARISON: None FINDINGS: Normal soft tissue structures. Normal calvarium. There is moderate cerebral atrophy with widening of the extra-axial spaces and ventricular dilatation. Normal white matter tracts of the cerebral hemispheres. Normal basal ganglia and thalami. Normal brainstem. Remote lacunar infarct left cerebellum. There is no intracranial hemorrhage. There are no findings of an acute ischemic infarction. Normal visualized paranasal sinuses. CT/Brain/Head without Contrast IMPRESSION: Chronic involutional changes of the brain. Electronically Signed: Joe Samaniego MD at 17:32 EST , Service support ,
--- NOTE | 2019-10-31 16:59 | ED.DCSUM_ITS ---
- ER Visit Summary Date of Service: 10/31/19 Chief Complaint: Tripped and fell with right-sided head injury and laceration History of Present Illness: The patient is a 79 M hx A. fib on Xarelto also hypertension and dilated cardiomyopathy. Patient was in a parking lot of a store he tripped over a parking block fell and struck the right side of his head causing laceration. Denies any headache or neck pain. Any other injuries or complaints. Physical Examination: Older male no acute distress vital signs are stable and afebrile. H EENT exam give dry reactive light. Is a laceration on his right forehead. Currently has a head dressing over it. No dental injury. Posterior scalp nontender. C-spine nontender. Trachea midline. Lungs clear to auscultation. Heart regular rate and rhythm no murmur. Chest were nontender. Abdomen soft and nontender normal bowel sounds no peritoneal signs. He is moving all 4 extremities. Neurovascular intact. He has mild decreased range of motion the left shoulder from a prior rotator cuff tear but no acute acute bony deformity or tenderness to either the upper or lower extremities. Neurologically he is awake and alert with no focal motor deficits. Test Results: CAT scan of the brain done without contrast reviewed by me read by the radiologist shows no acute intracranial bleed or fracture. Emergency Department Course and Treatment: CAT scan will occur due to him being on a blood thinner and having a moderate head injury. Suture set up will be done by nursing staff. He has a right forehead laceration that will need to be repaired. He states his tetanus is up-to-date within the last 10 years. Treatment Plan: Head injury instructions. Wound care. Suture removal in 7 days. Return if severe headache or feeling worse. Patient irregular shaped laceration right lateral eyebrow. Approximately 5 cm. It is kind of across the laceration. There is a flap which a took off. And then closed the laceration after was cleaned with Shur-Clens, washed, irrigated and explored it was locally anesthetized with lidocaine with epinephrine. I closed using 6 simple interrupted 4-0 Ethilon sutures. Proper hemostasis and wound closure was obtained. Disposition: Discharge Impression: Acute fall with right forehead injury. Right forehead laceration with ER repair of 5 cm History anticoagulated on Xarelto History of intermittent A. fib This note was generated with [employer] dictation software. It may contain incorrect words, spelling, and punctuation that were not noted in review of the chart prior to signing ED Disposition - Plan for ED Patient: Referrals: Richard Morley Chi, MD [Primary Care Provider] -
--- NOTE | 2019-10-31 18:49 | ED.DEP ---
ED Disposition - Plan for ED Patient: Disposition: Home or Assisted Living Instructions: HEAD INJURY, No Wake-Up (Adult), LACERATION, Face (Suture or Tape) Referrals: Richard Molrey Chi, MD [Primary Care Provider] - 7 Days for suture removal Additional Instructions: Ice to the area. Keep the wound clean and dry. Suture removal in 7 to 10 days. A week from Saturday I believe would be November 09 to be a good time to have them taken out. You have [address]
[2019-10-31 19:04] VITALS: BP 166/87; PULSE 60; RESP 18; O2SAT 99
== END 2019-10-31 19:10 | disposition home or self-care (01) ==
PROVIDERS: Emergency Provider Emergency Medicine; Family Provider Family Medicine Geriatric Medicine; PCP Family Medicine Geriatric Medicine
DX: S01.81XA Laceration without foreign body of other part of head, initial encounter (principal); W01.198A Fall on same level from slipping, tripping and stumbling with subsequent striking against other object, initial encounter; Y93.9 Activity, unspecified; Y92.481 Parking lot as the place of occurrence of the external cause; Y99.8 Other external cause status; I48.91 Unspecified atrial fibrillation; Z79.01 Long term (current) use 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s; I10 Essential (primary) hypertension; I42.0 Dilated cardiomyopathy
CPT/HCPCS: 12013; 70450; 99284

== ENCOUNTER → 2019-11-02 11:32 | Outpatient (CLI) | payer MEDICARE, OTHER, SELFPAY ==
[2019-10-31 16:22] VITALS: BMI 34.9
[2019-11-02 12:31] LABS: Absolute Neutrophil Count 4.1 X10^3/uL (2.0-7.7); Basophil# 0.03 X10^3/uL; Basophil% 0.5 % (0-1); Eosinophil# 0.13 X10^3/uL; Eosinophils% 2.2 % (0-5); Hematocrit 36.2 % (40-54); Hemoglobin 11.5 g/dL (13.0-16.5); Lymphocyte % 15.4 % (19-41); Mean Corp Hgb Conc 31.8 g/dL (32-36); Mean Corpuscular Volume 97.6 fL (80-94); Mean Platelet Vol. 10.5 fl (6.2-12.0); Monocyte# 0.71 X10^3/uL; Monocyte% 12.2 % (0-10); NRBC Flagged by Analyzer 0 % (0-5); Neutrophil # 4.06 X10^3/uL (2.7-7.7); Neutrophil % 69.5 % (47-70); Platelet Count 225 K/mm3 (150-450); RBC Distribution Width CV 12.9 % (11.6-14.6); RBC Distribution Width SD 46.4 fl (35.1-43.9); Red Blood Count 3.71 M/mm3 (4.6-6.2); White Blood Count 5.8 K/mm3 (4.4-11.0)
[2019-11-02 13:12] LABS: ALB/GLOB Ratio 1.1 RATIO (0.9-2.4); AST(SGOT) 21 U/L (15-37); Alanine Aminotransfer ALT/SGPT 23 U/L (16-61); Albumin, Serum 3.6 g/dL (3.2-5.0); Alkaline Phosphatase 88 U/L (45-117); Anion Gap 6 (5-15); BUN 23 mg/dL (7-18); BUN/Creat Ratio 16.7 RATIO (10-20); Calcium,Total 8.8 mg/dL (8.5-10.1); Chloride 110 mmol/L (98-107); Creatinine, Serum 1.38 mg/dL (0.70-1.30); EST Glomerular Filtration Rate 53 mL/min (>60); Est Glom Filt Rate - Afr Amer 64 mL/min (>60); Globulin 3.2 g/dL (2.2-4.2); Glucose 69 mg/dL (74-106); Potassium 3.9 mmol/L (3.5-5.1); Protein, Total 6.8 g/dL (6.4-8.2); Sodium Level 142 mmol/L (136-145); Thyroid Stim Hormone (TSH) 0.95 uIU/mL (0.358-3.74); Uric Acid 4.9 mg/dL (3.5-7.2)
== END ==
PROVIDERS: Family Provider Family Medicine Geriatric Medicine; PCP Family Medicine Geriatric Medicine; Visit Provider Family Medicine Geriatric Medicine
DX: I10 Essential (primary) hypertension (principal); E55.9 Vitamin D deficiency, unspecified; M10.9 Gout, unspecified
CPT/HCPCS: 36415; 80053; 82306; 84443; 84550; 85025

== ENCOUNTER 2019-11-06 10:01 | Day surgery (SDC) | payer MEDICARE, OTHER, SELFPAY ==
[2019-11-06 11:11] VITALS: BP 143/86; PULSE 59; RESP 16; TEMP 36.8; O2SAT 97; BMI 34.0
[2019-11-06] MEDS: Lactated Ringers 1,000 ML 100 ML IV (11:22)
[2019-11-06] MEDS: Cefazolin 2 GM in 0.9% Normal Saline 100 ML IV (12:33)
--- NOTE | 2019-11-06 13:36 | PCM.DC.URO ---
Discharge Diet: Light diet - advance as tolerated Discharge Activity: Return to Normal Activity Call your doctor if your incision/area has: Sudden Increased Bleeding Call your doctor if you observe: Fever of 101 or Higher Allergies/Adverse Reactions: Allergies No Known Allergies Allergy (Verified 11/06/19 11:10) Medications to take at Discharge Allopurinol [Zyloprim] 300 mg PO DAILY 09/20/17 Ferrous Sulfate 50 mg PO DAILY 09/20/17 Tamsulosin HCl [Flomax] 0.4 mg PO DAILY 09/20/17 Hydrocodone Bitart/Apap 5-325 [[place] 5MG-325MG] 1 tab PO Q6H PRN PRN 3 Days #10 tab 10/21/19 atorvastatin 20 mg tablet 20 mg PO QHS #90 tab 10/29/19 carvedilol 6.25 mg tablet 6.25 mg PO BID #180 tab 10/29/19 losartan 25 mg tablet 25 mg PO QDAY #90 tab 10/29/19 pantoprazole 40 mg tablet,delayed release 40 mg PO QDAY #90 tab 10/29/19 Rivaroxaban [Xarelto] 20 mg PO DAILY 10/31/19 Acetaminophen [Arthritis Pain Relief] 650 mg PO DAILY 11/05/19 Diphenhydramine HCl [Sleep Aid] 25 mg PO QHS 11/05/19 Ciprofloxacin [Cipro] 500 mg PO BID #6 tablet 11/06/19 Hydrocodone/Acetaminophen [[place] 5-325 Tablet] 1 each PO Q4H PRN PRN #14 tablet 11/06/19 Phenazopyridine [Pyridium] 100 mg PO TID #14 tablet 11/06/19 The following prescriptions were given: Ciprofloxacin [Cipro] 500 mg PO BID #6 tablet Hydrocodone/Acetaminophen [[place] 5-325 Tablet] 1 each PO Q4H PRN PRN #14 tablet PRN Reason: Pain Score 1-09/03 Phenazopyridine [Pyridium] 100 mg PO TID #14 tablet Primary Care Physician: Richard Morley Chi, MD [Primary Care Provider] - Test Results: Test results from this visit will be discussed in further detail at your follow-up appointment, if applicable. Please Follow Up With: Steve Menendez MD When: please call to make an appointment- next thrusday
--- NOTE | 2019-11-06 13:38 | OP.PCM_ITS ---
Report of Operation Date of Procedure: 11/06/19 Pre-Operative Diagnosis: Right ureteral calculi in the distal right ureter large about 10 mm Post-Operative Diagnosis: Same, mild bulbar urethral stricture Surgery/Procedure Performed:: Cystoscopy, balloon dilation of the right ureter, right ureteroscopy laser of the stone basket extraction of fragments and right stent placement, dilation of urethral stricture. Description of Surgical Findings:: 79-year-old male with a history of a stone stuck in the distal ureter currently is asymptomatic but given the size of stone less likely to get a pass on his own recommended we taken the surgery laser the stone and need a stent. Taken back to the operating room at the smooth induction of general anesthesia he was placed in dorsolithotomy position. The testicles were prepped and draped in usual sterile fashion. Went into the urethra with a 21 Cambodian rigid cystourethroscope the entire length urethra was normal pendulous urethra normal but I got to the bulbar urethra is as a annular stricture in the bulbar urethra was able to dilate it with the scope and get past it and then went to the prostate prostate was nonobstructive somewhat of a high riding bladder neck once inside the bladder identified the right ureter orifice checked the entire bladder no tumors stone seen within the bladder and then I used a wire and ran a wire up the right ureter orifice of the right ureter and over the wire advanced a 12 Cambodian 10 cm balloon dilator I then dilated the distal right ureter I then left the wire in place the next the wire went in with this SlimLine rigid ureteroscope was able to get an ureter quite easily I then used a 270 ?m laser fiber the laser the calculi into very small pieces, energy settings were 0.6 J and 18 Hz the stone finally laser little tiny pieces also pass on her own I then used a tipless basket to basket major fragments after all the major fragments were removed a smaller fragments were left I could not be basketed and then I went outside the ureter and over the wire I placed a stent it was a 6 Cambodian by 26 cm stent we left the string of the stent for easy extraction and then went back in the bladder drained the bladder with the scope and then removed the scop e of the string on the stent and the patient anesthetic was reversed plan to see him next week in about a week next no KUB is necessary and will get the stent out left the string on the stent for easy extraction. Type of Anesthesia:: General Drains: stent right side - Admit VTE Documentation VTE Present on Admission: No VTE Mechan Device Prophylaxis: SCD's
[2019-11-06 13:42] VITALS: BP 143/86; BP 175/82; PULSE 60; RESP 16; TEMP 37.1; O2SAT 98
[2019-11-06 13:45] VITALS: BP 143/86; BP 168/72; PULSE 62; RESP 16; O2SAT 99
[2019-11-06 14:00] VITALS: BP 143/86; BP 180/74; PULSE 60; RESP 16; O2SAT 99
[2019-11-06 14:06] VITALS: BP 143/86; BP 173/74; PULSE 63; RESP 16; TEMP 36.7; O2SAT 100
[2019-11-06] MEDS: HYDROcodone Bitartrate/Apap 5/325 Tablet PO (15:42)
--- NOTE | 2019-11-06 15:57 | SUR.PHASEII ---
Dr Menendez notified that the prescriptions did not go thru, that [facility] looked at the order and states that the prescriptions are neither pending or received, and that [facility], the pt's preferred pharmacy, verified that they did not have the prescriptions on their end. Dr Mancilla agreed that the prescriptions for Pyridium and Cipro be phoned in and to inform pt to use Tylenol and Ibuprofen for pain control. Prescriptions phoned in to [facility], spoke with Meliton Loya, for Cipro and Pyridium as ordered by Dr Menendez as seen in Amb Orders.
[2019-11-06] MEDS: Ibuprofen 200 MG Tablet PO (16:10)
[2019-11-06] MEDS: Phenazopyridine 95 MG Tablet PO (16:10)
[2019-11-06 16:20] VITALS: BP 143/86
[2020-05-03 11:21] LABS: Bacteria 0 SEEN /hpf (None Seen); Mucous, Urine 0 SEEN /hpf (<or=2+); Red Blood Cells-Urine 0 SEEN /hpf (0-5); White Blood Cells 0 SEEN /hpf (0-5)
[2020-05-03 11:33] LABS: Hematocrit 35.5 % (40-54); Hemoglobin 11.4 g/dL (13.0-16.5); Mean Corp Hgb Conc 32.1 g/dL (32-36); Mean Corpuscular Hgb 32.6 pg (27.0-32.0); Mean Corpuscular Volume 101.4 fL (80-94); Mean Platelet Vol. 9.3 fl (6.2-12.0); Platelet Count 239 K/mm3 (150-450); RBC Distribution Width CV 13.1 % (11.6-14.6); RBC Distribution Width SD 48.8 fl (35.1-43.9); White Blood Count 5.1 K/mm3 (4.4-11.0)
[2020-05-03 11:45] LABS: International Normalized Ratio 1.6; Prothrombin Time (Protime)PT. 18.6 SECONDS (11.7-14.9)
[2020-05-03 12:13] LABS: Anion Gap 5 (5-15); BUN 32 mg/dL (7-18); Calcium,Total 8.7 mg/dL (8.5-10.1); Chloride 107 mmol/L (98-107); Creatinine, Serum 1.28 mg/dL (0.70-1.30); EST Glomerular Filtration Rate 58 mL/min (>60); Est Glom Filt Rate - Afr Amer 70 mL/min (>60); Estimated Creatinine Clearance 49.11 ml/min; Glucose 144 mg/dL (74-106); Potassium 4.1 mmol/L (3.5-5.1); Sodium Level 140 mmol/L (136-145)
[2020-05-03 13:28] LABS: Color, Urine Yellow (Yellow); Glucose, Dipstick Normal (Normal); Ketone-Dipstick Negative (Negative); Leukocyte Esterase-Dipstick 100 /ul (Negative); Nitrite-Dipstick Negative (Negative); Occult Blood-Urine Negative /ul (Negative); Protein-Dipstick Negative (Negative); Specific Gravity, Urine 1.015 (1.002-1.030); Urine Bilirubin Dipstick Negative (Negative); Urine Clarity Clear (Clear); Urine Urobilinogen Normal (Normal)
[2020-05-03 13:37] LABS: Squamous Epithelial Cells - UA 0-5 SEEN /hpf (0-5)
== END 2019-11-06 16:24 | disposition home or self-care (01) ==
LOC: SDC 10:01 → AC 10:38
PROVIDERS: Internal Medicine Cardiovascular Disease; Family Provider Family Medicine Geriatric Medicine; PCP Family Medicine Geriatric Medicine; Referring Provider Urology; Visit Provider Urology
PROC: 0TJ98ZZ Inspection of Ureter, Via Natural or Artificial Opening Endoscopic (ICD-10-PCS; CPT 52352; principal; 2019-11-06 12:30)
DX: N20.1 Calculus of ureter (principal); N35.912 Unspecified bulbous urethral stricture, male; I10 Essential (primary) hypertension; Z86.73 Personal history of transient ischemic attack (TIA), and cerebral infarction without residual deficits; Z85.47 Personal history of malignant neoplasm of testis; Z95.810 Presence of automatic (implantable) cardiac defibrillator
CPT/HCPCS: 00873; 52356; 36415; 76000; 80048; 81001; 85027; 85610; J7120; C2617; J2405

== ENCOUNTER → 2019-11-12 17:10 | Outpatient (CLI) | payer MEDICARE, OTHER, SELFPAY ==
[2019-11-06 11:11] VITALS: BMI 34.0
== END ==
PROVIDERS: Family Provider Family Medicine Geriatric Medicine; PCP Family Medicine Geriatric Medicine; Referring Provider Urology; Visit Provider Urology
DX: R82.998 Other abnormal findings in urine (principal)
CPT/HCPCS: 87086; 87088

== ENCOUNTER → 2020-05-04 09:15 | Outpatient (CLI) | payer MEDICARE, OTHER, SELFPAY ==
[2020-05-04 12:33] LABS: Absolute Neutrophil Count 3.8 X10^3/uL (2.0-7.7); Basophil# 0.03 X10^3/uL; Basophil% 0.5 % (0-1); Eosinophil# 0.09 X10^3/uL; Eosinophils% 1.6 % (0-5); Hematocrit 34.9 % (40-54); Hemoglobin 11.2 g/dL (13.0-16.5); Lymphocyte % 16.5 % (19-41); Mean Corp Hgb Conc 32.1 g/dL (32-36); Mean Corpuscular Hgb 32.7 pg (27.0-32.0); Mean Platelet Vol. 10.1 fl (6.2-12.0); Monocyte# 0.68 X10^3/uL; Monocyte% 12.5 % (0-10); NRBC Flagged by Analyzer 0 % (0-5); Neutrophil # 3.75 X10^3/uL (2.7-7.7); Neutrophil % 68.7 % (47-70); Platelet Count 246 K/mm3 (150-450); RBC Distribution Width CV 13.2 % (11.6-14.6); RBC Distribution Width SD 49.4 fl (35.1-43.9); Red Blood Count 3.42 M/mm3 (4.6-6.2); White Blood Count 5.5 K/mm3 (4.4-11.0)
[2020-05-04 13:07] LABS: ALB/GLOB Ratio 1.2 RATIO (0.9-2.4); AST(SGOT) 16 U/L (15-37); Alanine Aminotransfer ALT/SGPT 22 U/L (16-61); Albumin, Serum 3.3 g/dL (3.2-5.0); Alkaline Phosphatase 80 U/L (45-117); Anion Gap 7 (5-15); BUN 30 mg/dL (7-18); BUN/Creat Ratio 25.2 RATIO (10-20); Calcium,Total 8.8 mg/dL (8.5-10.1); Chloride 108 mmol/L (98-107); Creatinine, Serum 1.19 mg/dL (0.70-1.30); EST Glomerular Filtration Rate 63 mL/min (>60); Est Glom Filt Rate - Afr Amer 76 mL/min (>60); Globulin 2.8 g/dL (2.2-4.2); Glucose 81 mg/dL (74-106); Potassium 4.2 mmol/L (3.5-5.1); Protein, Total 6.1 g/dL (6.4-8.2); Sodium Level 141 mmol/L (136-145); Thyroid Stim Hormone (TSH) 0.72 uIU/mL (0.358-3.74)
== END ==
PROVIDERS: PCP Family Medicine Geriatric Medicine; Visit Provider Family Medicine Geriatric Medicine
DX: I10 Essential (primary) hypertension (principal); E55.9 Vitamin D deficiency, unspecified; M10.9 Gout, unspecified
CPT/HCPCS: 36415; 80053; 82306; 84443; 84550; 85025

== ENCOUNTER → 2020-05-05 12:05 | Outpatient (CLI) | payer MEDICARE, OTHER, SELFPAY | PROVIDERS: Nurse Practitioner Family; PCP Family Medicine Geriatric Medicine; Referring Provider Internal Medicine Cardiovascular Disease; Visit Provider Internal Medicine Cardiovascular Disease | DX: Z11.59 Encounter for screening for other viral diseases (principal); Z95.810 Presence of automatic (implantable) cardiac defibrillator | CPT/HCPCS: 87635; G2023; U0003 ==

== ENCOUNTER 2020-05-12 07:36 | Day surgery (SDC) | payer MEDICARE, OTHER, SELFPAY ==
--- NOTE | 2020-05-10 09:04 | PCM.HP.BLA ---
History and Physical Date of Admission: 05/12/20 Mr. Schwarz is a 80-year-old gentleman that presents her today for a HUMAN RESOURCES FILE CLERK-D generator change. He has a history atrial fibrillation originally detected on his ICD. He does have a history of nonischemic cardiomyopathy with premature ventricular complexes, marked sinus bradycardia/sick sinus syndrome requiring an AV sequential pacemaker and he has a history of peripheral atheroemboli. A previous ICD interrogation demonstrated atrial flutter with RVR in which one episode lasted 7 seconds. Patient was unaware of this. He was placed on Eliquis and his Aspirin was discontinued. His Eliquis was discontinued and he is now on Xarelto. In addition, he has continued his Coreg and Zestoretic. He now requires switch over to Coumadin given the expense of Xarelto. Previously, the patient underwent an LV lead revision at [facility] in September 2014. Patient's HUMAN RESOURCES FILE CLERK?D evaluation on 05/03/2020 showed device at DHARMESH, less than 3 months. His DHARMESH tones were programmed off. Interrogation showed no VT/VF episodes and no mode switch episodes since last check on 03/11/2020. RV paced 96%. LV paced 98%. Atrial paced 99%. Pt denies chest, arm, jaw, or neck discomfort. [His] exercise tolerance is stable. Pt denies symptoms of CHF, palpitations, lightheadedness, dizziness, near syncopal or syncopal episodes. Pt denies edema or claudication issues. Pt. denies orthopnea, PND, fever, chills, blood in urine, blood in stool, myalgia, or unexplainable fatigue. He will proceed with generator change with Dr. Moran today. Patient went COVID-19 testing on 05/05/2020 that was considered to be negative. 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 Mother , Age 85 No problems noted. Brother , Age 68 Cancer Brother CVA (cerebral vascular accident) seizure disorder post fall injury Social History (Updated 10/29/19 @ 13:36 by Dov Loja MD) Smoking Status: Unknown if ever smoked ROS Const Const: Negative for fatigue, weakness, body ache, fever(s), headache(s), chills, frequent falls, night sweats, daytime sleepiness, difficulty sleeping, excessive sweating, weight gain, weight loss, increased appetite, poor appetite or anorexia Eyes Eyes: Negative for blind spots, loss of peripheral vision, transient loss of vision, blurry vision, change in vision, double vision, floaters, tunnel vision or other ENT ENT: Negative for headache(s), dizziness, hearing loss, tinnitus, Nosebleed/epistaxis, balance problems, post nasal drip, lip swelling, tongue swelling, bleeding gums, hoarseness, neck pain, dry mouth or other Cardio Chest Pain: No Palpitations: No Edema: No Muscle aches with walking: None Resp Respiratory: Negative for SOB with activity , SOB at rest, SOB orthopnea\SOB lying down, Cough, Coughing up blood/hemoptysis, chest congestion, pain on inspiration, snoring, stridor, wheezing, crackles, paroxysmal nocturnal dyspnea or other GI GI: Negative nausea, vomiting, heartburn, constipation, belching, bloating, cramping, vomiting blood/hematemesis, bright, red blood in stools, black,tarry stools, loose stools, Difficulty Swallowing or other : Negative for hematuria, frequent nighttime urination/ nocturia, erectile dysfunction or abnormal vaginal bleeding Musc Musc: Negative for muscle aches/ myalgia, muscle weakness, joint pain or balance problems Skin Skin: Negative redness, non-healing lesions, rash, unusual bruising, skin ulcer, wounds, jaundice or other Neuro Neuro: Negative for dizziness, lightheadedness, near syncope, syncope, orthostatic symptoms, frequent falls, headache(s), weakness, confusion, memory loss, restless legs, blurry vision, double vision, vertigo, seizures, lack of coordination or other Ricardo Hematologic/Lymphatic: Negative for easy bleeding, easy bruising, enlarged lymph nodes or other Endo Endo: Negative for fatigue, cold intolerance, heat intolerance, excessive sweating, flushing, increased thirst/drinking, increased hunger, hair loss, hair growth or other Psych Psych: Negative for anxiety, depression, thoughts of harming anyone, thoughts of harming yourself, visual hallucinations, panic attacks or audible hallucinations Allergy Allergy/Immunology: Negative for throat swelling, Negative for tongue swelling, Negative for hives, Negative for rash, Negative for lip swelling Cardiology Exam Const Appearance: cooperative, healthy appearing and no acute distress Nutritional Appearance: well nourished Orientation: alert, oriented x3 and oriented to person Head Head: normal to inspection, normocephalic and atraumatic Nose: external nose normal Face and Sinus: face symmetric Mouth: oral mucosae normal Eyes General: appearance normal, both eyes and all related structures Eyelids: eyelids normal Conjunctivae: conjunctivae normal Pupils: PERRL and normal by confrontation EOM: EOM intact bilaterally Neck Neck: normal visual inspection and full ROM Carotids: normal carotid upstroke Chest Chest inspection: normal inspection of the chest Auscultation: Bilateral: Clear to Auscultation Cardio Palpation: normal PMI Rate: regular rate Rhythm: regular rhythm Heart sounds: S1 normal and S2 normal GI GI: normal to inspection, no hepatosplenomegaly and bowel sounds present Neuro General: alert, awake, oriented x3, CN's II-XI intact bilaterally and moves all extremities Skin Skin: no rashes or lesions noted Extremities Pulses: Normal: Right Femoral Pulse, Left Femoral Pulse, Right Dorsalis Pedis Pulse, Left Dorsalis Pedis Pulse, Right Posterior Tibial Pulse, Left Posterior Tibial Pulse, Right Radial Pulse, Left Radial Pulse Lower Extremity Edema: None: Bilateral Psych Psychological: normal affect Assessment & Plan 1. Paroxysmal atrial fibrillation I48.0 Plan 1. Atrial fibrillation: Patient appears to be in normal sinus rhythm at this time. His most recent echocardiogram from March 2019 showed an ejection fraction of 65%, stage I diastolic dysfunction, and moderately enlarged left atrium. His stress echocardiogram in March 2019 was negative for ischemia. At this time, he will continue current medical therapy which includes carvedilol and anticoagulation. 2. Hyperlipidemia E78.5 Plan 2. Hyperlipidemia: His LDL and HDL cholesterol are at goal. He will continue Lipitor. 3. Dilated cardiomyopathy I42.0 Plan 3. Dilated cardiomyopathy: With the addition of antihypertensive medications, cardiac resynchronization, and time, his LV function has essentially normalized. No indication for repeat echocardiogram. He will proceed with generator change with Dr. Moran today. He will continue to follow with pacemaker clinic on a routine basis. Thank you for allowing us to participate in the patients plan of care, if you have any questions please do not hesitate to call. This note was generated using a voice recognition system and there may be incorrect words, spelling or punctuation that were not noted when reviewing the office note prior to saving. Supplemental Information Echocardiogram from 04/21/2019: Interpretation Summary The estimated ejection fraction is 65 %. Stage 1 diastolic dysfunction. The left atrium is moderately enlarged. Trivial mitral valve insufficiency. Trivial tricuspid valve insufficiency. Right ventricular systolic pressure estimated to be 38 mmHg. Mild pulmonary hypertension. Mild (1+) aortic valve insufficiency. Mildly dilated aortic root. Compared to echo report dated 09/10/2017, LV function has remained the same, RVSP has increased from 22 to 38 mm Hg. Stress echocardiogram from 04/23/2019: Interpretation Summary The estimated ejection fraction is 55 %. Normal, adequate, dobutamine echocardiogram. Negative for ischemia by EKG and echocardiographic anterior. No anginal symptoms noted. Rare PVCs noted. Patient transitioned into a paced ventricular rhythm during infusion. Baseline moderate hypertension requiring sublingual nitroglycerin prior to his infusion, with hypertensive blood pressure response to dobutamine. Rare ventricular couplet which is a nonspecific finding given dobutamine. Final LVEF is 75%. Test terminated due to the attainment of target heart rate. No complications. Thank you for allowing us to participate in the patients plan of care, if you have any questions please do not hesitate to call. Procedure Criteria Procedure Type: Elective Risk to Patient if Procedure Delayed: Risk of rapidly worsening to severe symptoms if delayed COVID Risk Discussion: The surgeon/proceduralist and patient have discussed in detail the risk of exposure to and/or potential harm posed by the COVID-19 virus with having a surgery/procedure at this time versus the risk of delaying the surgery/procedure. It is not possible to know either the risk of delaying the surgery or procedure or chance of getting an infection with perfect accuracy, but a joint decision was made between the patient and the surgeon/proceduralist to proceed at this time with the scheduled surgery/procedure as indicated on the consent form.
[2020-05-11 09:07] VITALS: BMI 33.2
--- NOTE | 2020-05-12 10:26 | PCM.OPRPT ---
Report of Operation Date of Procedure: 05/12/20 Description of Procedure: Diagnosis: Cardiomyopathy with NYHA Class II. ICD for primary prevention. Device generator replacement for normal battery depletion Preoperative diagnosis is device at end of life for normal battery depletion. Postoperative diagnosis same as above. After informed consent and IV antibiotics the patient was brought to the [place] catheterization laboratory and the skin over the device was prepped and draped in the usual sterile manner. Intermittent boluses of Versed, and fentanyl were used for sedation and analgesia as well as 1% subcutaneous lidocaine. An incision was made over the pre-existing device. Using blunt and Bovie dissection the pocket was opened and the device was removed. Careful attention was paid not to injure the pre-existing leads. The leads were removed from the device header and they were interrogated. There is normal lead function. Hemostasis was obtained. The pocket was flushed with antibiotic solution. The sponge and needle count were correct. The new device was brought to the field. The leads were placed in the appropriate position in the header and secured by the set screw. The leads and the device were then placed in the pocket. The pocket was closed with a deep layer of running 2-0 Vicryl, a superficial layer of running 4-0 Vicryl, skin with Steri-Strips which were covered with a rolled 4 x 4 and Tegaderm. Patient left the room with the device programmed to proper parameters and there were no complications. The device is a BiV ICD chamber [employer] [place] [employer] generator. All lead parameters were tested and found to be functionally normal. Lead and device serial and model numbers are available in the chart documents provided by the device company quality audit representative procedure summary.
== END 2020-05-12 12:15 | disposition home or self-care (01) ==
LOC: CLSP 07:37
PROVIDERS: PCP Family Medicine Geriatric Medicine; Referring Provider Internal Medicine Cardiovascular Disease; Visit Provider Internal Medicine Cardiovascular Disease
DX: Z45.02 Encounter for adjustment and management of automatic implantable cardiac defibrillator (principal); I42.0 Dilated cardiomyopathy; I10 Essential (primary) hypertension; I48.0 Paroxysmal atrial fibrillation; E78.5 Hyperlipidemia, unspecified; I27.20 Pulmonary hypertension, unspecified; I49.5 Sick sinus syndrome; G47.30 Sleep apnea, unspecified; K21.9 Gastro-esophageal reflux disease without esophagitis; Z86.73 Personal history of transient ischemic attack (TIA), and cerebral infarction without residual deficits; Z85.47 Personal history of malignant neoplasm of testis; Z79.01 Long term (current) use 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s; Z79.899 Other long term (current) drug therapy
CPT/HCPCS: 33264; 93005; 93641; 99152; 99153; J7040; J7050

== ENCOUNTER → 2020-06-07 09:33 | Outpatient (CLI) | payer MEDICARE, OTHER, SELFPAY ==
[2020-05-19 13:26] VITALS: BMI 31.6
--- NOTE | 2020-06-07 09:33 | ECHOD_ITS ---
Reason For Study: DCM Procedure This was a 2D Doppler, Color Flow transthoracic echocardiogram. Exam performed in department. Left Ventricle Mild concentric left ventricular hypertrophy. The estimated ejection fraction is 65 %. Septal motion consistent with IVCD. No regional wall motion abnormalities noted. Right Ventricle Normal size and thickness. ICD or pacer leads identified within the right ventricle. Normal systolic function. Atria The left atrium is mildly enlarged. Normal right atrium. Normal atrial septum. Mitral Valve The mitral valve is structurally normal. No prolapse or stenosis seen. Trivial mitral valve insufficiency. Tricuspid Valve Normal tricuspid valve. Trivial tricuspid valve insufficiency. Right ventricular systolic pressure estimated to be 24 mmHg. Aortic Valve Trisinus/trileaflet aortic valve. Mild diffuse aortic valve thickening. Mild (1+) aortic valve insufficiency. Pulmonic Valve Normal pulmonic valve. Great Vessels Normal aortic root. Normal arch. Normal inferior vena cava. Inferior vena cava collapse with sniff. Pericardium/Pleural No pericardial effusion. MMode/2D Measurements & Calculations LVIDd: 4.7 cm IVSd: 1.4 cm Ao root diam: 3.9 cm LVIDs: 3.3 cm LVPWd: 1.4 cm RVDd: 3.8 cm FS: 29.8 % LAV(MOD-bp): 78.5 ml LVAd ap4: 38.5 cm2 SV(MOD-sp4): 59.2 ml LAV(MOD-bp) Indexed: 35.6 ml/m2 EDV(MOD-sp4): 121.1 ml LAV(MOD-sp2): 88.9 ml EDV(sp4-el): 130.4 ml LAV(MOD-sp4): 70.5 ml LVAs ap4: 24.7 cm2 ESV(MOD-sp4): 61.8 ml ESV(sp4-el): 65.1 ml EF(MOD-sp4): 48.9 % EF(sp4-el): 50.1 % SV(sp4-el): 65.4 ml LA A4 area: 23.3 cm2 LA dimension(2D): 3.9 cm RA A4 area: 17.8 cm2 Doppler Measurements & Calculations MV E max estuardo: 45.4 cm/sec Lat Peak E' Estuardo: 5.4 cm/sec Med Peak E' Estuardo: 3.6 cm/sec MV A max estuardo: 78.2 cm/sec E/E' lat: 8.5 E/E' med: 12.8 MV E/A: 0.58 Ao V2 max: 116.1 cm/sec AI max estuardo: 390.7 cm/sec LV V1 max: 76.9 cm/sec Ao max P.4 mmHg AI max P.1 mmHg LV V1 max P.4 mmHg AI dec slope: 171.8 cm/sec2 AI P1/2t: 666.2 msec PA V2 max: 98.2 cm/sec TR max estuardo: 213.1 cm/sec TR max P.2 mmHg Interpretation Summary Mild concentric left ventricular hypertrophy. The estimated ejection fraction is 65 %. The left atrium is mildly enlarged. Trivial mitral valve insufficiency. Trivial tricuspid valve insufficiency. Right ventricular systolic pressure estimated to be 24 mmHg. Mild (1+) aortic valve insufficiency. Compared to echo report dated 04/21/2019, LV function has remained the same, and RVSP has improved from 38 to 24 mmHg. Ordering Physician: Dov Loja Referring Physician: Richard Morley Chi Performed By: Nahomi Donald RDCS
== END ==
PROVIDERS: PCP Family Medicine Geriatric Medicine; Referring Provider Internal Medicine Cardiovascular Disease; Visit Provider Internal Medicine Cardiovascular Disease
DX: I44.7 Left bundle-branch block, unspecified (principal); Z95.2 Presence of prosthetic heart valve
CPT/HCPCS: 93306

== ENCOUNTER → 2020-09-26 14:57 | Outpatient (CLI) | payer MEDICARE, OTHER, SELFPAY ==
[2020-05-19 13:26] VITALS: BMI 31.6
--- NOTE | 2020-09-26 15:05 | RAD_ITS ---
STUDY: X-RAY - PELVIS AND LEFT HIP REASON FOR EXAM: Male, 80 years old. LEFT HIP PAIN x1.5 WEEKS, WORSENING SINCE STEPPING DOWN AND HEARING POP ON SATURDAY TECHNIQUE: 3 views of the pelvis and hip. COMPARISON: None. FINDINGS: There are degenerative changes of the visualized lumbar spine. There are atherosclerotic vascular calcifications of the pelvic arteries. There is narrowing with cortical sclerosis and osteophyte formation of the right sacroiliac joint consistent with degenerative osteoarthritic changes. Normal bilateral superior and inferior pubic rami. Normal pubic symphysis. Normal bilateral ischial tuberosities. There are mild osteoarthritic changes of the femoral head with marginal osteophyte formation. Normal acetabulum. There is mild articular joint space narrowing of the hip. RAD/HIP, UNI W/ Pelvis 2-3 Views IMPRESSION: Mild degenerative changes. There is no acute displaced fracture or dislocation. Electronically Signed: Tasha Arriaga MD at 5:21 EST , Service support ,
== END ==
PROVIDERS: PCP Family Medicine Geriatric Medicine; Referring Provider Family Medicine Geriatric Medicine; Visit Provider Family Medicine Geriatric Medicine
DX: M25.559 Pain in unspecified hip (principal)
CPT/HCPCS: 73502

== ENCOUNTER → 2020-11-03 08:46 | Outpatient (CLI) | payer MEDICARE, OTHER, SELFPAY ==
[2020-10-24 08:03] VITALS: BMI 32.1
[2020-11-03 12:26] LABS: Absolute Lymphocyte Count 1.01 X10^3/uL (0.83-4.51); Absolute Neutrophil Count 3.4 X10^3/uL (2.0-7.7); Basophil# 0.03 X10^3/uL; Basophil% 0.6 % (0-1); Eosinophil# 0.12 X10^3/uL; Eosinophils% 2.3 % (0-5); Hemoglobin 11.2 g/dL (13.0-16.5); Lymphocyte # 1.01 X10^3/ul (4.0); Lymphocyte % 19.3 % (19-41); Mean Corpuscular Hgb 31.5 pg (27.0-32.0); Mean Corpuscular Volume 98.6 fL (80-94); Monocyte# 0.63 X10^3/uL; NRBC Flagged by Analyzer 0 % (0-5); Neutrophil # 3.44 X10^3/uL (2.7-7.7); Neutrophil % 65.6 % (47-70); Platelet Count 229 K/mm3 (150-450); RBC Distribution Width CV 13.2 % (11.6-14.6); RBC Distribution Width SD 47.9 fl (35.1-43.9); Red Blood Count 3.55 M/mm3 (4.6-6.2); White Blood Count 5.2 K/mm3 (4.4-11.0)
[2020-11-03 12:40] LABS: Vitamin D,25 Hydroxy 31.2 ng/mL
[2020-11-03 12:52] LABS: ALB/GLOB Ratio 1.1 RATIO (0.9-2.4); AST(SGOT) 17 U/L (15-37); Alanine Aminotransfer ALT/SGPT 24 U/L (16-61); Albumin, Serum 3.3 g/dL (3.2-5.0); Alkaline Phosphatase 75 U/L (45-117); Anion Gap 4 (5-15); BUN 29 mg/dL (7-18); BUN/Creat Ratio 21.5 RATIO (10-20); Calcium,Total 8.9 mg/dL (8.5-10.1); Chloride 104 mmol/L (98-107); Creatinine, Serum 1.35 mg/dL (0.70-1.30); EST Glomerular Filtration Rate 54 mL/min (>60); Est Glom Filt Rate - Afr Amer 66 mL/min (>60); Glucose 94 mg/dL (74-106); Protein, Total 6.3 g/dL (6.4-8.2); Sodium Level 138 mmol/L (136-145); Thyroid Stim Hormone (TSH) 1.09 uIU/mL (0.358-3.74)
== END ==
PROVIDERS: PCP Family Medicine Geriatric Medicine; Visit Provider Family Medicine Geriatric Medicine
DX: I10 Essential (primary) hypertension (principal); E55.9 Vitamin D deficiency, unspecified; M10.9 Gout, unspecified
CPT/HCPCS: 36415; 80053; 82306; 84443; 84550; 85025

== ENCOUNTER → 2020-11-15 14:33 | Outpatient (CLI) | payer MEDICARE, OTHER, SELFPAY ==
[2020-10-24 08:03] VITALS: BMI 32.1
--- NOTE | 2020-11-15 14:41 | VDLE_ITS ---
Reason For Study: Edema Procedure LEFT This is a venous duplex using B-mode, color GSV is normal. flow and spectral Doppler. CFV is compressible, spontaneous, phasic, Exam performed in department. competent, and demonstrates normal A preliminary report was called and/or faxed augmentation. to [facility]. FV is compressible, spontaneous, phasic, competent and demonstrates normal augmentation. POP V is compressible, spontaneous, phasic, competent and demonstrates normal augmentation. T/P Trunk is compressible. PTV is compressible. LT PerV is compressible. Interpretation Summary Deep veins of the left lower extremity are patent and compressible segmentally. There is no evidence of left lower extremity deep vein thrombosis. Valvular competence appears intact within the proximal deep venous system on the left . The left great saphenous vein appears patent and compressible segmentally. Ordering Physician: Richard Morley Referring Physician: Richard Morley Chi Performed By: Brianne Retana RVT
== END ==
PROVIDERS: PCP Family Medicine Geriatric Medicine; Referring Provider Family Medicine Geriatric Medicine; Visit Provider Family Medicine Geriatric Medicine
DX: R60.0 Localized edema (principal)
CPT/HCPCS: 93971

== ENCOUNTER → 2020-11-23 12:45 | Outpatient (CLI) | payer MEDICARE, OTHER, SELFPAY ==
[2020-10-24 08:03] VITALS: BMI 32.1
--- NOTE | 2020-11-23 12:48 | ART_ITS ---
Reason For Study: PAD Procedure A bilateral lower extremity continuous wave Doppler with analog waveform analysis and ankle brachial indexes. Left Segmental Pressures Left brachial= 166mmHg. Left posterior tibial artery = 227mmHg. Left dorsalis pedis artery = 220mmHg. Left digit = 112 mmHg. The left dorsalis pedis waveforms are triphasic. The left posterior tibial artery waveforms are triphasic. Right Segmental Pressures Right brachial= 169mmHg. Right posterior tibial artery = 220mmHg. Right dorsalis pedis artery = 210mmHg. Right digit = 123 mmHg. The right dorsalis pedis waveforms are triphasic. The right posterior tibial artery waveforms are triphasic. Indices The right ankle brachial index by the dorsalis pedis is 1.24. The right ankle brachial index by the posterior tibial artery is 1.30. The right digital-brachial index is 0.73. The left ankle brachial index by the dorsalis pedis is 1.30. The left ankle brachial index by the posterior tibial artery is 1.34. The left digital-brachial index is 0.66. Interpretation Summary Triphasic Doppler waveforms are noted at ankle level bilaterally. Resting ankle-brachial indices are normal bilaterally. The right digital-brachial index is normal. The left digital-brachial index is mildly diminished. Arterial flow appears normal at ankle level bilaterally, and at digital level on the right. There is evidence of mild, distal, small-vessel arterial occlusive disease at digital level on the left. Ordering Physician: Richard Morley Referring Physician: Richard Morley Chi Performed By: Brianne Retana RVT
== END ==
PROVIDERS: PCP Family Medicine Geriatric Medicine; Referring Provider Family Medicine Geriatric Medicine; Visit Provider Family Medicine Geriatric Medicine
DX: I73.9 Peripheral vascular disease, unspecified (principal)
CPT/HCPCS: 93922

== ENCOUNTER → 2020-12-19 11:36 | Outpatient (CLI) | payer MEDICARE, OTHER, SELFPAY ==
[2020-10-24 08:03] VITALS: BMI 32.1
--- NOTE | 2020-12-19 13:04 | NEURO_ITS ---
NCS and/or EMG Patient Report Ordering Doctor: Richard Morley Chi DATE OF SERVICE: 12/19/20 Indication: Bilateral lower extremity numbness, tingling and tightness. Chronic, localized back pain without radicular features. No lower extremity weakness or falls. Evaluate for peripheral polyneuropathy. Findings: Nerve conduction studies were performed in the left upper and lower extremity. The left radial sensory response recording over the extensor snuff box showed a reduced amplitude, normal latency and normal conduction velocity. The right peroneal motor study recording the extensor digitorum brevis showed an absent response. The right tibial motor study recording the abductor hallucis brevis showed an absent response. Right sural sensory response showed an absent response. Right superficial peroneal sensory response showed an absent response. Needle EMG was omitted due to the presence of several relative co ntraindications. The patient has significant lower extremity edema and reports a prior history of infection in the lower extremities. In addition, he is currently treated with therapeutic anticoagulation (Xarelto). Given the heightened risk for bleeding and/or infection the needle examination was deferred. Impression: This is an abnormal, but markedly limited study. There is electrophysiologic e vidence suggestive, but not diagnostic of, an underlying peripheral neuropathy. The absent nerve conduction responses seen in the lower extremity are confounded by the presence of significant lower extremity edema. The low radial sensory response, however, does suggest a diffuse disorder of the peripheral nerves. Needle EMG was omitted due to the reasons listed above. Therefore, clinical correlation is needed for this limited study. Clement Whiting D.O.
== END ==
PROVIDERS: PCP Family Medicine Geriatric Medicine; Referring Provider Family Medicine Geriatric Medicine; Visit Provider Family Medicine Geriatric Medicine
DX: R20.9 Unspecified disturbances of skin sensation (principal); R20.2 Paresthesia of skin; R20.0 Anesthesia of skin
CPT/HCPCS: 95909

== ENCOUNTER 2020-12-23 09:57 | Outpatient (RCR) | payer MEDICARE, OTHER, SELFPAY ==
[2020-10-24 08:03] VITALS: BMI 32.1
== END 2020-12-23 23:59 ==
LOC: IMMUN 09:57
PROVIDERS: PCP Family Medicine Geriatric Medicine; Visit Provider Family Medicine
DX: Z23 Encounter for immunization (principal)
CPT/HCPCS: 0011A; 0012A; 91301

== ENCOUNTER → 2021-01-06 10:46 | Outpatient (CLI) | payer MEDICARE, OTHER, SELFPAY ==
[2020-12-29 10:08] VITALS: BMI 33.0
--- NOTE | 2021-01-06 10:47 | ECHOD_ITS ---
Reason For Study: CMP Procedure This was a 2D Doppler, Color Flow transthoracic echocardiogram. The study was technically difficult. Exam performed in department. Left Ventricle Normal LV size. Left ventricular systolic function is normal. The estimated ejection fraction is 60 %. Paced septal motion. Diastolic function is indeterminate. No regional wall motion abnormalities noted. Right Ventricle Normal RV size. ICD or pacer leads identified within the right ventricle. Normal systolic function. Atria Mild to moderate left atrial enlargement. Normal right atrium. ICD or pacer leads identified within the right atrium. No doppler evidence for ASD. Mitral Valve There is no mitral annular calcification. Equivocal mitral valve prolapse. Mild (1+) mitral valve insufficiency. Tricuspid Valve Normal tricuspid valve. Trivial tricuspid valve insufficiency. Unable to estimate RV systolic pressure/pulmonary artery pressure due to technically difficult study. Aortic Valve Trisinus/trileaflet aortic valve. Normal aortic valve. Mild (1+) aortic valve insufficiency. Pulmonic Valve The pulmonic valve is not well visualized. Trivial pulmonic valve insufficiency. Great Vessels Normal sized aortic root. Pericardium/Pleural Trivial pericardial effusion. There are no echocardiographic indications of cardiac tamponade. MMode/2D Measurements & Calculations LVIDd: 5.3 cm IVSd: 1.3 cm Ao root diam: 4.4 cm LVIDs: 3.2 cm LVPWd: 1.1 cm LA dimension: 3.7 cm FS: 39.9 % LAV(MOD-bp): 70.7 ml LA A4 area: 25.5 cm2 RA A4 area: 16.8 cm2 LAV(MOD-bp) Indexed: 31.2 ml/m2 LAV(MOD-sp2): 55.7 ml LAV(MOD-sp4): 85.3 ml Time Measurements MV dec time: 0.31 sec Doppler Measurements & Calculations MV E max estuardo: 31.5 cm/sec Lat Peak E' Estuardo: 5.9 cm/sec Med Peak E' Estuardo: 3.7 cm/sec MV A max estuardo: 58.5 cm/sec E/E' lat: 5.4 E/E' med: 8.4 MV E/A: 0.54 MV V2 max: 67.0 cm/sec MV P1/2t max estuardo: 45.3 cm/sec Ao V2 max: 96.0 cm/sec MV max P.8 mmHg MV P1/2t: 87.9 msec Ao max P.7 mmHg MV V2 mean: 36.4 cm/sec MV dec slope: 151.0 cm/sec2 MV mean P.61 mmHg MVA(P1/2t): 2.5 cm2 MV V2 VTI: 15.5 cm LV V1 max: 71.3 cm/sec PA V2 max: 93.4 cm/sec LV V1 max P.0 mmHg Interpretation Summary The study was technically difficult. Left ventricular systolic function is normal. The estimated ejection fraction is 60 %. Paced septal motion. Mild to moderate left atrial enlargement. Equivocal mitral valve prolapse. Mild (1+) mitral valve insufficiency. Trivial tricuspid valve insufficiency. Mild (1+) aortic valve insufficiency. Trivial pulmonic valve insufficiency. Trivial pericardial effusion. There are no echocardiographic indications of cardiac tamponade. Unable to estimate RV systolic pressure/pulmonary artery pressure due to technically difficult study. Diastolic function is indeterminate. ICD or pacer leads identified within the right atrium ICD or pacer leads identified within the right ventricle. Ordering Physician: Raad Romero Referring Physician: Richard Morley Chi Performed By: Juanpablo Woods RCS
== END ==
PROVIDERS: PCP Family Medicine Geriatric Medicine; Referring Provider Internal Medicine Cardiovascular Disease; Visit Provider Internal Medicine Cardiovascular Disease
DX: I44.7 Left bundle-branch block, unspecified (principal); I48.0 Paroxysmal atrial fibrillation; I49.5 Sick sinus syndrome; I42.0 Dilated cardiomyopathy; E78.5 Hyperlipidemia, unspecified; I10 Essential (primary) hypertension; Z95.810 Presence of automatic (implantable) cardiac defibrillator
CPT/HCPCS: 93306

== ENCOUNTER → 2021-02-21 07:34 | Outpatient (CLI) | payer MEDICARE, OTHER, SELFPAY ==
[2020-12-29 10:08] VITALS: BMI 33.0
[2021-02-21 08:50] LABS: Anion Gap 3 (5-15); BUN 36 mg/dL (7-18); BUN/Creat Ratio 24.2 RATIO (10-20); Chloride 107 mmol/L (98-107); Creatinine, Serum 1.49 mg/dL (0.70-1.30); EST Glomerular Filtration Rate 48 mL/min (>60); Est Glom Filt Rate - Afr Amer 59 mL/min (>60); Glucose 96 mg/dL (74-106); Sodium Level 141 mmol/L (136-145)
== END ==
PROVIDERS: PCP Family Medicine Geriatric Medicine; Referring Provider Internal Medicine Cardiovascular Disease; Visit Provider Internal Medicine Cardiovascular Disease
DX: I48.0 Paroxysmal atrial fibrillation (principal); I42.0 Dilated cardiomyopathy; I49.5 Sick sinus syndrome; I44.7 Left bundle-branch block, unspecified; I10 Essential (primary) hypertension
CPT/HCPCS: 36415; 80048

== ENCOUNTER → 2021-05-08 09:47 | Outpatient (CLI) | payer MEDICARE, OTHER, SELFPAY ==
[2020-12-29 10:08] VITALS: BMI 33.0
--- NOTE | 2021-05-08 09:50 | RAD_ITS ---
STUDY: X-RAY - ABDOMEN/PELVIS REASON FOR EXAM: Male, 81 years old. FECAL IMPACTION TECHNIQUE: AP supine and upright views of the abdomen and pelvis. COMPARISON: None. FINDINGS: Normal visualized lung bases. There is an abundance of fecal material throughout the colon. There is no demonstrated free abdominal air. Vascular calcification. Questionable left intrarenal calculus. Normal soft tissue structures. There are diffuse degenerative changes of the visualized lumbar spine. Dextroscoliosis. Degenerative changes of the sacroiliac joints bilaterally. RAD/Abd Inc Decub and/or Erect IMPRESSION: Large amount of fecal material is seen in the colon. Questionable left renal calculus. Electronically Signed: Zen Katz MD at 12:32 EDT , Service support ,
[2021-05-08 12:01] LABS: Absolute Lymphocyte Count 0.96 X10^3/uL (0.83-4.51); Absolute Neutrophil Count 2.5 X10^3/uL (2.0-7.7); Basophil# 0.03 X10^3/uL; Basophil% 0.7 % (0-1); Eosinophil# 0.14 X10^3/uL; Eosinophils% 3.3 % (0-5); Hematocrit 34.4 % (40-54); Hemoglobin 10.7 g/dL (13.0-16.5); Lymphocyte # 0.96 X10^3/ul (0.83-4.51); Mean Corp Hgb Conc 31.1 g/dL (32-36); Mean Corpuscular Hgb 30.5 pg (27.0-32.0); Mean Platelet Vol. 10.2 fl (6.2-12.0); Monocyte# 0.56 X10^3/uL; Monocyte% 13.4 % (0-10); NRBC Flagged by Analyzer 0 % (0-5); Neutrophil # 2.49 X10^3/uL (2.7-7.7); Neutrophil % 59.6 % (47-70); Platelet Count 240 K/mm3 (150-450); RBC Distribution Width CV 13.5 % (11.6-14.6); RBC Distribution Width SD 48.7 fl (35.1-43.9); Red Blood Count 3.51 M/mm3 (4.6-6.2); White Blood Count 4.2 K/mm3 (4.4-11.0)
[2021-05-08 12:17] LABS: Vitamin D,25 Hydroxy 42.8 ng/mL
[2021-05-08 12:26] LABS: ALB/GLOB Ratio 1.2 RATIO (0.9-2.4); AST(SGOT) 25 U/L (15-37); Alanine Aminotransfer ALT/SGPT 21 U/L (16-61); Albumin, Serum 3.4 g/dL (3.2-5.0); Alkaline Phosphatase 103 U/L (45-117); Anion Gap 5 (5-15); BUN 27 mg/dL (7-18); BUN/Creat Ratio 16.5 RATIO (10-20); Calcium,Total 8.9 mg/dL (8.5-10.1); Chloride 104 mmol/L (98-107); Creatinine, Serum 1.64 mg/dL (0.70-1.30); EST Glomerular Filtration Rate 43 mL/min (>60); Est Glom Filt Rate - Afr Amer 52 mL/min (>60); Globulin 2.9 g/dL (2.2-4.2); Glucose 93 mg/dL (74-106); Potassium 3.8 mmol/L (3.5-5.1); Protein, Total 6.3 g/dL (6.4-8.2); Sodium Level 142 mmol/L (136-145); Thyroid Stim Hormone (TSH) 0.85 uIU/mL (0.358-3.74); Uric Acid 5.1 mg/dL (3.5-7.2)
== END ==
PROVIDERS: PCP Family Medicine Geriatric Medicine; Referring Provider Family Medicine Geriatric Medicine; Visit Provider Family Medicine Geriatric Medicine
DX: K56.41 Fecal impaction (principal); I10 Essential (primary) hypertension; E55.9 Vitamin D deficiency, unspecified; M10.9 Gout, unspecified
CPT/HCPCS: 36415; 74019; 80053; 82306; 84443; 84550; 85025

== ENCOUNTER → 2021-05-16 12:12 | Outpatient (CLI) | payer MEDICARE, OTHER, SELFPAY ==
[2020-12-29 10:08] VITALS: BMI 33.0
[2021-05-16 12:39] LABS: Absolute Lymphocyte Count 1.13 X10^3/uL (0.83-4.51); Absolute Neutrophil Count 2.6 X10^3/uL (2.0-7.7); Basophil# 0.03 X10^3/uL; Basophil% 0.7 % (0-1); Eosinophil# 0.12 X10^3/uL; Eosinophils% 2.7 % (0-5); Hematocrit 33.7 % (40-54); Hemoglobin 10.6 g/dL (13.0-16.5); Lymphocyte # 1.13 X10^3/ul (0.83-4.51); Lymphocyte % 25.2 % (19-41); Mean Corp Hgb Conc 31.5 g/dL (32-36); Mean Corpuscular Hgb 31.3 pg (27.0-32.0); Mean Corpuscular Volume 99.4 fL (80-94); Mean Platelet Vol. 9.7 fl (6.2-12.0); Monocyte# 0.63 X10^3/uL; NRBC Flagged by Analyzer 0 % (0-5); Neutrophil # 2.57 X10^3/uL (2.7-7.7); Neutrophil % 57.2 % (47-70); Platelet Count 265 K/mm3 (150-450); RBC Distribution Width CV 13.4 % (11.6-14.6); RBC Distribution Width SD 48.8 fl (35.1-43.9); RET-HE 36.8 pg (30-35); Red Blood Count 3.39 M/mm3 (4.6-6.2); Reticulocyte Count 1.83 % (0.5-1.5); White Blood Count 4.5 K/mm3 (4.4-11.0)
[2021-05-16 12:59] LABS: Anion Gap 6 (5-15); BUN 34 mg/dL (7-18); BUN/Creat Ratio 19.1 RATIO (10-20); Calcium,Total 8.7 mg/dL (8.5-10.1); Chloride 104 mmol/L (98-107); Creatinine, Serum 1.78 mg/dL (0.70-1.30); EST Glomerular Filtration Rate 39 mL/min (>60); Est Glom Filt Rate - Afr Amer 48 mL/min (>60); Ferritin 443 ng/mL (26-388); Glucose 92 mg/dL (74-106); Iron 56 ug/dL (65-175); Iron Binding Capacity,Total 319 ug/dL (250-450); Potassium 4.4 mmol/L (3.5-5.1); Sodium Level 140 mmol/L (136-145)
[2021-05-16 13:11] LABS: Vitamin B12 368 pg/mL (211-911)
[2021-05-17 16:09] LABS: Folate, RBC (Hct) Test 31.5 % (37.5-51.0)
[2021-05-17 21:06] LABS: Folates, RBC Test 1533 ng/mL (>498)
== END ==
PROVIDERS: PCP Family Medicine Geriatric Medicine; Referring Provider Family Medicine Geriatric Medicine; Visit Provider Family Medicine Geriatric Medicine
DX: D64.9 Anemia, unspecified (principal)
CPT/HCPCS: 36415; 80048; 82607; 82728; 82747; 83540; 83550; 85014; 85025; 85045

== ENCOUNTER → 2021-05-17 15:28 | Outpatient (CLI) | payer MEDICARE, OTHER, SELFPAY ==
[2020-12-29 10:08] VITALS: BMI 33.0
--- NOTE | 2021-05-17 15:32 | US_ITS ---
STUDY: RENAL ULTRASOUND - COMPLETE REASON FOR EXAM: Male, 81 years old. Acute renal failure TECHNIQUE: Ultrasound evaluation of the kidneys was performed with real-time and static avila-scale imaging. COMPARISON: None. FINDINGS: RIGHT KIDNEY: Normal location of the right kidney, which is normal in size. The right kidney measures 11.0 cm. There is a normal cortex of the right kidney. The renal cortex measures 0.8 cm. 2.2 cm cyst in the midsection of the right kidney. There are no right renal calculi. There is no right hydronephrosis. DISTAL RIGHT URETER: There is non-visualization of the distal right ureter. There is no demonstrated right ureterovesical junction calculus. There is a visualized right ureteral jet. LEFT KIDNEY: Normal location of the left kidney, which is normal in size. The left kidney measures 10.3 cm. There is a normal cortex of the left kidney. The renal cortex measures 0.9 cm. 2.2 cm cyst midsection left kidney. There are no left renal calculi. There is no left hydronephrosis. DISTAL LEFT URETER: There is non-visualization of the distal left ureter. There is no demonstrated left ureterovesical junction calculus. There is a visualized left ureteral jet. BLADDER: The distended urinary bladder has a volume of 141 ml. The empty urinary bladder has a volume of 48 ml. There is a normal wall thickness of the distended urinary bladder. There is no demonstrated mass within the urinary bladder. There are no demonstrated bladder calculi. US/Kidney and Bladder IMPRESSION: Normal ultrasound of the kidneys and urinary bladder. No hydronephrosis to suggest obstruction. Electronically Signed: Jose Rosa MD at 18:08 EDT Tel , Service support ,
== END ==
PROVIDERS: PCP Family Medicine Geriatric Medicine; Referring Provider Family Medicine Geriatric Medicine; Visit Provider Family Medicine Geriatric Medicine
DX: N17.9 Acute kidney failure, unspecified (principal)
CPT/HCPCS: 76770

== ENCOUNTER 2021-06-09 08:17 | Day surgery (SDC) | payer MEDICARE, OTHER, SELFPAY ==
[2021-05-31 08:44] VITALS: BMI 33.2
[2021-06-09] VITALS (7 sets, daily range): BP systolic 117–157; BP diastolic 63–90; PULSE 60; RESP 16; TEMP 36.3–36.9; O2SAT 94–100; BMI 33.1
[2021-06-09] MEDS: Lactated Ringers 1,000 ML 100 ML IV ×2 (09:07→10:21)
--- NOTE | 2021-06-09 09:45 | PCM.HP.BLA ---
History and Physical Date of Admission: 06/09/21 Intake Vital Signs 05/31/21 08:41 05/31/21 08:44 Height 5 ft 11 in Weight: 243 lb BMI 33.9 33.2 BP 135/80 H Blood Pressure Location Rt brachial Position Sitting Respiration 18 Intake Visit Reasons: EGD, CSCOPE, ANEMIA Chief Complaint: anemia Applications Systems Engineer Required: No Is patient in pain?: No Allergies No Known Allergies Allergy (Verified 05/31/21 08:41) Medications allopurinol 300 mg PO DAILY 09/20/17 [History Confirmed 05/31/21] ferrous sulfate 50 mg PO DAILY 09/20/17 [History Confirmed 05/31/21] tamsulosin 0.4 mg PO DAILY 09/20/17 [History Confirmed 05/31/21] carvedilol 6.25 mg tablet 6.25 mg PO BID #180 tab 10/29/19 [Rx Confirmed 05/31/21] losartan 25 mg tablet 25 mg PO QDAY #90 tab 10/29/19 [Rx Confirmed 05/31/21] rivaroxaban 20 mg tablet 20 mg PO DAILY #90 tab 01/11/20 [Rx Confirmed 05/31/21] famotidine 20 mg tablet 40 mg PO DAILY tab 05/19/20 [History Confirmed 05/31/21] atorvastatin 20 mg tablet 20 mg PO QHS #90 tab 10/27/20 [Rx Confirmed 05/31/21] diphenhydramine HCl 25 mg tablet 25 mg PO QHS PRN 12/29/20 [History Confirmed 05/31/21] gabapentin 100 mg capsule 100 mg PO QHS 01/18/21 [History Confirmed 05/31/21] furosemide 20 mg tablet 40 mg PO .COMPLEX #90 tab 03/28/21 [Rx Confirmed 05/31/21] acetaminophen 650 mg tablet,extended release 650 mg PO Q12H 05/31/21 [History Confirmed 05/31/21] polyethylene glycol 3350 17 gram/dose oral powder 17 g PO DAILY 05/31/21 [History Confirmed 05/31/21] [facility] Medical History 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 Mother , Age 85 No problems noted. Brother , Age 68 Cancer Brother CVA (cerebral vascular accident) seizure disorder post fall injury Social History Smoking Status: Former smoker quit date: 11/25/94 HPI HPI HPI: MIKE RAMOS, is a 81 M who presents to the office today for iron deficiency anemia. The patient reports no gross blood in his stool. He is not having any abdominal pain. Patient had his last EGD over 20 years and his last colonoscopy was 9 years ago. Patient has no family history of colon or stomach cancer. ROS General General: Yes weight change and fatigue; No appetite, colon cancer, breast cancer or weakness HEENT HEENT: No difficulty swallowing, eye injury, eye surgery, swollen glands or hoarseness Endo Endocrine: No thyroid disease, diabetes mellitus, thyroid cancer, Hair loss, heat intolerance or cold intolerance Skin Skin: No rash or changing moles Breast Breast: No left breast lump, right breast lump, nipple discharge, breast pain, abnormal mammogram, abnormal US or breast enlargement Musc Musculoskeletal: Yes back problems, arthritis and gout; No rheumatoid arthritis or joint pain Cardio Cardiovascular: Yes pacemaker and heart disease; No murmur, atrial fibrillation, high blood pressure, heart attack, heart stent, palpitations, shortness of breat with exertion or chest pain Psych Psychiatric: No depression, anxiety or hearing voices Resp Respiratory: Yes shortness of breath, No sleep apnea, No cough, No COPD, No asthma, No emphysema and No wheezing Gastro Gastrointestinal: Yes abdominal pain, No nausea or vomiting, No diarrhea, Yes constipation, No blood in stool, Yes acid reflux, Yes hemorrhoids, No ulcers, No gallbladder problem and No black,tarry stools Ricardo Hematologic: Yes blood thinners, No blood disorders, Yes bleeding, Yes anemia and No blood clots Neuro Neurologic: No system reviewed and no additional complaints, except as documented, No as per HPI, No abnormal gait, No abnormal hearing, No abnormal movements, No abnormal speech, No behavioral changes, No burning sensations, No confusion, No convulsions, No disequilibrium, No dizziness, No localized weakness, No frequent falls, No headache(s), No lack of coordination, No loss of vision, No memory loss, Yes numbness, No other visual disturbances, No radicular pain, No restless legs, No sensory deficit, No syncope, Yes tingling, No tremor(s), No weakness and No other Exam Const General: cooperative Orientation: alert and oriented x3 [facility] Head: normal to inspection Neck Neck: normal visual inspection and full ROM Chest Chest palpation & inspection: normal inspection of the chest Resp Effort & Inspection: normal respiratory effort Auscultation: clear to auscultation bilaterally Cardio Rate: regular rate Rhythm: regular rhythm GI Inspection: non-distended Palpation: soft and nontender Skin General: no rashes or lesions noted Neuro General: patient alert and patient oriented x3 Extrem General: full ROM Psych Appearance: grossly normal Mental Status: mental status grossly normal Assessment and Plan Assessment and Plan (1) Iron deficiency anemia: Status: Acute Qualifiers: Iron deficiency anemia type: unspecified iron deficiency Qualified Code(s): D50.9 - Iron deficiency anemia, unspecified Orders: Orders: Colonoscopy Today EGD Today Plan - Dr. Sabino Levine MD: Patient has iron deficiency anemia and requires EGD and colonoscopy to evaluate. I will have him stop his Xarelto for 3 days prior to the procedure. I explained endoscopy in detail to the patient. I explained the risks including but not limited to stroke or heart attack with anesthesia, perforation of the GI tract, bleeding, infection. I explained that any of these could necessitate further emergency surgery. The patient understands and all questions were answered sufficiently. The patient wishes to proceed with procedure. Sabino Levine MD Pager: [facility] [address] [place] [address], [address] [place] [address] Office: I have re-examined the patient. There are no clinical changes since date of exam.
--- NOTE | 2021-06-09 09:50 | COLBX_PTH ---
PATIENT: MIKE RAMOS LOC: EN U#:[id number] AGE/SX: 81/M ROOM: RE06/09/[address]: Dr. Sabino Levine MD : 1940 BED: DIS: 06/09/2021 SPEC #: [id number] RECD: 06/09/21 11:37 STATUS: LEOBARDO MAAME #: [id number] MARGA: 06/09/21 09:[address]: Sabino Levine DEPT: SURGICAL PATHOLOGY RECD BY: Benito Manuel ENTERED: 06/09/21 13:00 SP TYPE: COLON BX OTHR DR: Dr. Richard Morley MD Tissues: Sigmoid colon biopsy Procedures: Surgery Specimen Level IV HEADER OPERATION: Colonoscopy, [place] PRE-OP DIAGNOSIS: Iron deficiency anemia TISSUE SUBMITTED: Sigmoid colon polyp MICROSCOPIC DIAGNOSIS Sigmoid colon polyp, biopsy: Tubular adenoma. SJ:alize 06/12/2021 MICROSCOPIC DESCRIPTION Slides are reviewed. GROSS DESCRIPTION Received in fixative is one container labeled with the patient's name and designated sigmoid colon polyp biopsy. The specimen consists of a piece of philippe-pink polyp measuring 0.4 x 0.3 x 0.2 cm. The specimen is totally submitted in one cassette. / SJ:rg 06/09/21 TC:1 CPT: 35482
--- NOTE | 2021-06-09 11:02 | OP.EGD_ITS ---
Patient Name: Felton Schwarz Procedure Date: 06/09/2021 10:33 AM Date of : 1940 Age: 81 Procedure: Upper GI endoscopy Indications: Iron deficiency anemia Providers: Sabino Levine MD Medicines: Monitored Anesthesia Care Patient Profile: This is a 81 year old male. Refer to note in patient chart for documentation of history and physical. Complications: No immediate complications. Procedure: Pre-Anesthesia Assessment: - Prior to the procedure, a History and Physical was performed, and patient medications and allergies were reviewed. The patient's tolerance of previous anesthesia was also reviewed. The risks and benefits of the procedure and the sedation options and risks were discussed with the patient. All questions were answered, and informed consent was obtained. Prior Anticoagulants: The patient has taken Xarelto (rivaroxaban), last dose was 2 days prior to procedure. After reviewing the risks and benefits, the patient was deemed in satisfactory condition to undergo the procedure. After obtaining informed consent, the endoscope was passed under direct vision. Throughout the procedure, the patient's blood pressure, pulse, and oxygen saturations were monitored continuously. The gastroscope was introduced through the mouth, and advanced to the second part of duodenum. The upper GI endoscopy was accomplished without difficulty. The patient tolerated the procedure well. Scope In: 10:40:21 AM Scope Out: 10:41:53 AM Total Procedure Duration Time 0 hours 1 minute 32 seconds Findings: The esophagus was normal. The stomach was normal. The examined duodenum was normal. Impression: - Normal esophagus. - Normal stomach. - Normal examined duodenum. - No specimens collected. Recommendation: - Discharge patient to home. - Resume previous diet. - Continue present medications. Procedure Code(s): --- Professional --- 37212, Esophagogastroduodenoscopy, flexible, transoral; diagnostic, including collection of specimen(s) by brushing or washing, when performed (separate procedure) Diagnosis Code(s): --- Professional --- D50.9, Iron deficiency anemia, unspecified CPT copyright 2017 [employer]. All rights reserved. The codes documented in this report are preliminary and upon stencil typist review may be revised to meet current compliance requirements. Sabino Levine MD 06/09/2021 11:01:45 AM This report has been signed electronically. Number of Addenda: 0 Note Initiated On: 06/09/2021 10:33 AM
--- NOTE | 2021-06-09 11:03 | OP.CCLET_ITS ---
06/09/2021 Richard Morley MD [address] [place] [address] Re : Upper GI endoscopy procedure for Felton Schwarz Dear Dr. Morley This procedure was performed on Wednesday, June 09, 2021. My impressions and recommendations are as follows: Impressions : - Normal esophagus. - Normal stomach. - Normal examined duodenum. - No specimens collected. Recommendations : - Discharge patient to home. - Resume previous diet. - Continue present medications. My findings are described in the full procedure note, which is enclosed. If I can be of further assistance, please feel free to contact me at Doctor phone number(s): , Work: . Sincerely, Sabino Levine MD 06/09/2021 11:01:45 AM This report has been signed electronically.
--- NOTE | 2021-06-09 11:06 | OP.COLON_ITS ---
Patient Name: Felton Schwarz Procedure Date: 06/09/2021 10:42 AM Date of : 1940 Age: 81 Procedure: Colonoscopy Indications: Iron deficiency anemia Providers: Sabino Levine MD Medicines: Monitored Anesthesia Care Patient Profile: This is a 81 year old male. Refer to note in patient chart for documentation of history and physical. Last Colonoscopy: 10 years ago. Complications: No immediate complications. Procedure: Pre-Anesthesia Assessment: - Prior to the procedure, a History and Physical was performed, and patient medications and allergies were reviewed. The patient's tolerance of previous anesthesia was also reviewed. The risks and benefits of the procedure and the sedation options and risks were discussed with the patient. All questions were answered, and informed consent was obtained. Prior Anticoagulants: The patient has taken Xarelto (rivaroxaban), last dose was 2 days prior to procedure. After reviewing the risks and benefits, the patient was deemed in satisfactory condition to undergo the procedure. After I obtained informed consent, the scope was passed under direct vision. Throughout the procedure, the patient's blood pressure, pulse, and oxygen saturations were monitored continuously. The Colonoscope was introduced through the anus and advanced to the cecum, identified by appendiceal orifice and ileocecal valve. The colonoscopy was performed without difficulty. The patient tolerated the procedure well. The quality of the bowel preparation was good. Scope In: 10:44:51 AM Scope Withdrawal Time 0 hours 4 minutes 57 seconds Scope Out: 10:57:14 AM Total Procedure Duration Time 0 hours 12 minutes 23 seconds Findings: A small polyp was found in the sigmoid colon. The polyp was removed with a hot snare. Resection and retrieval were complete. The exam was otherwise without abnormality on direct and retroflexion views. Impression: - One small polyp in the sigmoid colon, removed with a hot snare. Resected and retrieved. - The examination was otherwise normal on direct and retroflexion views. Recommendation: - Discharge patient to home. - Resume previous diet. - Continue present medications. - Resume Xarelto (rivaroxaban) at prior dose tomorrow. - Repeat colonoscopy is recommended. The colonoscopy date will be determined after pathology results from today's exam become available for review. Procedure Code(s): --- Professional --- 86732, Colonoscopy, flexible; with removal of tumor(s), polyp(s), or other lesion(s) by snare technique Diagnosis Code(s): --- Professional --- D12.5, Benign neoplasm of sigmoid colon D50.9, Iron deficiency anemia, unspecified CPT copyright 2017 [employer]. All rights reserved. The codes documented in this report are preliminary and upon spray dyer review may be revised to meet current compliance requirements. Sabino Levine MD 06/09/2021 11:06:23 AM This report has been signed electronically. Number of Addenda: 0 Note Initiated On: 06/09/2021 10:42 AM
--- NOTE | 2021-06-09 11:07 | OP.CCLET_ITS ---
06/09/2021 Richard Morley MD [address] [place] [address] Re : Colonoscopy procedure for Felton Schwarz Dear Dr. Morley This procedure was performed on Wednesday, June 09, 2021. My impressions and recommendations are as follows: Impressions : - One small polyp in the sigmoid colon, removed with a hot snare. Resected and retrieved. - The examination was otherwise normal on direct and retroflexion views. Recommendations : - Discharge patient to home. - Resume previous diet. - Continue present medications. - Resume Xarelto (rivaroxaban) at prior dose tomorrow. - Repeat colonoscopy is recommended. The colonoscopy date will be determined after pathology results from today's exam become available for review. My findings are described in the full procedure note, which is enclosed. If I can be of further assistance, please feel free to contact me at Doctor phone number(s): , Work: . Sincerely, Sabino Levine MD 06/09/2021 11:06:23 AM This report has been signed electronically.
== END 2021-06-09 12:07 ==
LOC: EN 08:19 → AC 08:20
PROVIDERS: PCP Family Medicine Geriatric Medicine; Referring Provider Family Medicine Geriatric Medicine; Visit Provider Surgery
PROC: 0DJD8ZZ Inspection of Lower Intestinal Tract, Via Natural or Artificial Opening Endoscopic (ICD-10-PCS; CPT 45378; principal; 2021-06-09 09:45)
DX: D12.5 Benign neoplasm of sigmoid colon (principal); D50.9 Iron deficiency anemia, unspecified; I10 Essential (primary) hypertension; K21.9 Gastro-esophageal reflux disease without esophagitis; E78.5 Hyperlipidemia, unspecified; I48.0 Paroxysmal atrial fibrillation; Z86.73 Personal history of transient ischemic attack (TIA), and cerebral infarction without residual deficits; Z79.01 Long term (current) use 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s; Z87.891 Personal history of nicotine dependence
CPT/HCPCS: 43235; 45385; 88305; J7120; J2405

== ENCOUNTER → 2021-06-19 09:05 | Outpatient (CLI) | payer MEDICARE, OTHER, SELFPAY ==
[2021-06-09 08:47] VITALS: BMI 33.1
[2021-06-19 10:03] LABS: Homocysteine 14.9 umol/L (3.2-10.7)
== END ==
PROVIDERS: PCP Family Medicine Geriatric Medicine; Visit Provider Family Medicine Geriatric Medicine
DX: E53.8 Deficiency of other specified B group vitamins (principal); E72.11 Homocystinuria
CPT/HCPCS: 36415; 83090; 83921

== ENCOUNTER → 2021-07-18 14:49 | Outpatient (CLI) | payer MEDICARE, OTHER, SELFPAY ==
[2020-12-29 10:08] VITALS: BMI 33.0
--- NOTE | 2021-07-18 15:10 | CT_ITS ---
STUDY: RIGHT LOWER EXTREMITY CT SCAN REASON FOR EXAM: Male, 81 years old. UNILATERAL PRIMARY OSTEOARTHRITIS,R KNEE RADIATION DOSAGE (If Supplied By Facility): CTDIvol = ( 26.34 ) mGy, DLP = ( 1714.41 ) mGycm. Individualized dose optimization techniques were used for this CT.? TECHNIQUE: Axial multidetector CT scan of the right lower extremity. Coronal and sagittal reformatted images. COMPARISON: None. FINDINGS: No acute fracture, dislocation or bone destruction. Healed right sacral fracture (axial image 8 series 2) with right-sided sacroiliac joint arthrosis. Mild left sacroiliac joint arthrosis. Moderate bilateral hip osteoarthritis. Moderate pubic symphysis arthrosis. Chronic-appearing urinary bladder wall thickening. Moderate right knee tricompartment osteoarthritis. Multiple right knee osteophytes. Mild proximal tibiofibular joint arthrosis. Quadriceps tendon enthesophyte. Large volume joint knee joint effusion. Small popliteal cyst. Moderate soft tissue swelling. Advanced semitendinosus muscle atrophy versus muscular lipoma (axial image 237). Mild tibiotalar joint arthrosis. Normal subtalar joints. Mild talonavicular arthrosis. Mild calcaneocuboid arthrosis. Moderate ankle swelling. CT/Extremity Lower without Contra IMPRESSION: Moderate right knee tricompartment osteoarthritis Right knee large joint effusion, small popliteal cyst and moderate swelling Semitendinosus muscle atrophy versus intramuscular lipoma Chronic appearing urinary bladder wall thickening Additional chronic/degenerative findings, as above Electronically Signed: Sai Kwok DO at 13:37 EDT Tel , Service support ,
== END ==
PROVIDERS: PCP Family Medicine Geriatric Medicine; Referring Provider Orthopaedic Surgery; Visit Provider Orthopaedic Surgery
DX: M17.11 Unilateral primary osteoarthritis, right knee (principal)
CPT/HCPCS: 73700

== ENCOUNTER 2021-08-07 18:27 | Observation (INO) | payer MEDICARE, OTHER, SELFPAY ==
[2020-12-29 10:08] VITALS: BMI 33.0
--- NOTE | 2021-07-26 09:59 | EKG12_ITS ---
Test Reason : PRE OP Blood Pressure : / mmHG Vent. Rate : 060 BPM Atrial Rate : 060 BPM P-R Int : 224 ms QRS Dur : 180 ms QT Int : 494 ms P-R-T Axes : 000 -25 047 degrees QTc Int : 494 ms AV dual-paced rhythm with prolonged AV conduction Biventricular pacemaker detected Abnormal ECG Confirmed by FRANCIE FRENCH, JAKE ([id number]), marketing editor OZZIE CELIS ([id number]) on 07/27/2021 9:11:36 AM Referred By: Forrest Talavera Confirmed By:JAKE MARMOLEJO MD
[2021-07-26 10:39] LABS: Hematocrit 33.8 % (40-54); Hemoglobin 10.8 g/dL (13.0-16.5); Mean Corpuscular Hgb 31.4 pg (27.0-32.0); Mean Corpuscular Volume 98.3 fL (80-94); Mean Platelet Vol. 9.8 fl (6.2-12.0); Platelet Count 289 K/mm3 (150-450); RBC Distribution Width CV 13.8 % (11.6-14.6); RBC Distribution Width SD 49.1 fl (35.1-43.9); Red Blood Count 3.44 M/mm3 (4.6-6.2); White Blood Count 7.4 K/mm3 (4.4-11.0)
[2021-07-26 10:55] LABS: Partial Thromboplast Time 35.3 Seconds (24.1-36.2); Prothrombin Time (Protime)PT. 22.1 SECONDS (11.7-14.9)
[2021-07-26 11:03] LABS: Hemoglobin A1c 5.4 % (3.8-5.6)
[2021-07-26 11:31] LABS: AST(SGOT) 22 U/L (15-37); Alanine Aminotransfer ALT/SGPT 25 U/L (16-61); Albumin, Serum 3.6 g/dL (3.2-5.0); Alkaline Phosphatase 90 U/L (45-117); Bilirubin, Direct 0.22 mg/dL (0.00-0.30); Globulin 3.2 g/dL (2.2-4.2); Magnesium 2.3 mg/dL (1.6-2.6); Protein, Total 6.8 g/dL (6.4-8.2)
[2021-07-26 11:34] LABS: Anion Gap 6 (5-15); BUN 29 mg/dL (7-18); BUN/Creat Ratio 20.9 RATIO (10-20); Chloride 107 mmol/L (98-107); Creatinine, Serum 1.39 mg/dL (0.70-1.30); EST Glomerular Filtration Rate 52 mL/min (>60); Est Glom Filt Rate - Afr Amer 63 mL/min (>60); Glucose 85 mg/dL (74-106); Potassium 4.3 mmol/L (3.5-5.1); Sodium Level 140 mmol/L (136-145)
[2021-08-07] VITALS (16 sets, daily range): BP systolic 100–168; BP diastolic 61–85; PULSE 59–960; RESP 16–18; TEMP 36.1–37; O2SAT 96–125; BMI 36.5; BMI 37.5
--- NOTE | 2021-08-07 | KNEE_PTH ---
PATIENT: MIKE RAMOS LOC: MS3 U#:[id number] AGE/SX: 81/M ROOM: [facility] RE08/07/[address]: Dr. Forrest Talavera DO : 1940 BED: 1 DIS: 08/08/2021 SPEC #: [id number] RECD: 08/07/21 14:18 STATUS: LEOBARDO REQ #: [id number] MARGA: 08/07/21 00:[address]: Forrest Talavera DEPT: SURGICAL PATHOLOGY RECD BY: Rio Trammell ENTERED: 08/08/21 12:00 SP TYPE: TOTAL KNEE OTHR DR: Dr. Richard Morley MD Tissues: Knee, NOS Procedures: Decalcification bone/plaque Surgery Specimen Level IV HEADER OPERATION: ERAS, total knee replacement robotic arm assist PRE-OP DIAGNOSIS: Osteoarthritis TISSUE SUBMITTED: Right knee bone MICROSCOPIC DIAGNOSIS Bone and tissue of right knee, total knee resection: Severe degenerative joint disease. Mild synovial hyperplasia. AM:alize 08/11/2021 MICROSCOPIC DESCRIPTION Slides are reviewed. GROSS DESCRIPTION Received is one container designated right knee bone. The specimen consists of multiple fragments of philippe-yellow bone measuring in aggregate 17 x 12 x 2 cm. Also in the specimen container are multiple fragments of yellow-white soft tissue measuring in aggregate 6 x 2 x 2 cm. A number of bony fragments contain articular surfaces consistent with tibial plateau and femoral condyle and displaying prominent osteophyte formation, eburnation, and bone erosion. Creamery Worker sections are submitted in two cassettes as follows: 1 - soft tissue, 2 - bone after decalcification. / AM:alize 08/08/21 TC:5 [facility]: [id number], [id number]
[2021-08-07] MEDS: Lactated Ringers 1,000 ML 125 ML IV (08:52)
[2021-08-07] MEDS: Gabapentin 600 MG Tablet PO (08:52)
[2021-08-07] MEDS: Acetaminophen 500 MG Tablet 1000 MG PO ×3 (08:53→21:30)
[2021-08-07] MEDS: Cefazolin 2 GM in 0.9% Normal Saline 100 ML IV (10:50)
--- NOTE | 2021-08-07 13:28 | PCM.OPRPT ---
Report of Operation Date of Procedure: 08/07/21 Pre-Operative Diagnosis: OA right knee Post-Operative Diagnosis: same Surgery/Procedure Performed:: Right TKR Description of Surgical Findings:: Report of Operation Date of Procedure: Preoperative Diagnosis: [right ] knee primary osteoarthritis Postoperative Diagnosis: [ right ] knee primary osteoarthritis Operation: Robotic Assisted Knee Total Arthroplasty, [right ] knee Surgeon: Dr Forrest Talavera DO Central Office Trouble Shooter: Shazia Rehman PA-C Anesthesia: spinal Anesthesiologist: Sai Dougherty M.D. Findings: Stable knee with good patella tracking Specimen(s): Bony cuts Complications: No intraoperative complications Estimated Blood Loss: 50 cc IV Fluids: 1000 ml crystalloid Implants Used: 1. Anaya Triathlon size 6 press fit CR femur 2. [place] Triathlon size 6 tibia 3. 38 mm patella 4. 9 mm CS polyethylene Brief History Operative Indications: [ (81 y/o, male) ] with history of [ right ] knee osteoarthrosis with radiographic findings with loss of joint space, osteophyte formation and subchondral sclerosis. Failed conservative measures as mentioned in the H&P. Discussion of total knee arthroplasty as well as risk and benefits were discussed with the patient including but not limited to blood loss, DVTs, PEs, neurovascular damage, general risk of anesthesia including loss of life, and stiffness or instability were also discussed with the patient. Patient demonstrated understanding and was able to sign informed consent. Procedure: On the date of procedure, patient's [ right ] lower extremity was marked in the preoperative area. The patient was then taken back to the operating room where that patient was placed on the table in the supine position. All bony prominences were identified and well-padded. Anesthesia assumed control of the C-spine and airway throughout the remainder of the procedure. A tourniquet was placed on the [ right ] upper thigh and the leg was prepped in a sterile fashion. The surgeon then scrubbed at this time. Upon reentering the room, the [ right ] lower extremity was draped in a standard orthopedic fashion. A timeout was then called and everyone agreed upon the side, the site, the procedure to be performed, patient's identity and antibiotics given. Esmarch bandage was used to exsanguinate the extremity and the tourniquet was placed up to 250 mmHg with the knee in flexion. A midline skin incision was made and a sharp dissection was taken down through skin, subcutaneous tissue and fat. The standard medial parapatellar incision was made and the patella was subluxed laterally. An appropriate deep MCL release was done and the fat pad was resected. Our attention was then directed to the patella. The patella was everted and a flat resection was made. The knee was then flexed up and 2 femoral pins were placed inside the incision and 2 tibial pins were placed outside the incision in the medial tibia bicortically. Once this was completed, the 2 checkpoints in the femur and tibia were placed. Knee was then flexed up and the bony landmarks were registered. Once the was completed, the knee taken through range of motion and manually stressed allowing us to plan for an appropriate tibial cut. The robotic arm was brought into the field sterilely and checkpoint and saw were registered. Based on the patient's deformity, the tibial cut was made in [2 degrees valgus ]. At this time, the tensioner was then placed in the joint and ligament tension was checked at 90 degrees and full extension. Based on the patient's ligamentous tension, appropriate adjustments were made to the operative plan and ligament releases were done. Once we were happy with our operative plan with balanced flexion and extension gaps, our attention was directed to the femur. The robot was brought into the field sterilely and registered. Posterior condylar cuts, anterior chamfer cuts and anterior cuts were appropriately made for a [ size 6 ] femur. When these were completed, the saws were switched out in the distal femoral and posterior chamfer cuts were made. Protecting the soft tissue throughout this time. A [ size 6 ] base plate was selected. The knee was flexed to 90 degrees and soft tissues and posterior osteophytes were removed from the joint. 40 cc of the periarticular injection was injected into the posterior medial corner of the joint. The appropriate trials were then placed on the femur and tibia. A trial polyethylene was trialed to ensure proper balancing and stability of the knee. The appropriate tibial internal rotation was then marked with a bovie. Our attention was then directed to the patella. The lug holes were drilled and the patella trial was placed. Patellar tracking was checked and deemed appropriate. Once we were happy, lug holes were drilled for the femur and trial components were removed. The tibia was subluxed and pinned into place and the keel was punched and drilled appropriately. Final components were verified and opened. The wound was copiously irrigated with normal saline. The components were impacted into place with the tibia, femur and finally the patella. The trial poly component was placed and the knee was placed in full extension. The tracking, alignment and balance were verified and a [ 9 mm CS ] polyethylene component was placed. Once the final components were placed an Irrisept lavage was performed and the wound was copiously irrigated with normal saline solution and the periarticular injection was given. the wound was closed in a layer-hall fashion using #1 vicryl interrupted sutures for the arthrotomy, 2-0 interrupted vicryl suture for the subcuticular layer and marina for final skin closure. A sterile compressive dressing was then placed. The patient was then awakened from anesthesia, transferred to the rpalmyra and transferred to the PACU for recovery. My physician clinical physician assistant was a vital part of this case. He was important in appropriate retraction during the case, and protection of soft tissues during bony cuts. His intimate knowledge of the case and my steps aided in safe and expedient completion of the procedure as well as appropriate position of the leg during the case. He was also vital in assisting with closure under my direct supervision. Due to the complexity of this case, robotic arm was used to assist in the surgery to improve accuracy and clinical outcomes. Post-op Plan: DVT ppx; ASA 81 mg BID, thigh high compression stockings Follow up: in office in 2 weeks for wound check PT: to start POD #0 at hospital, outpatient PT should be arranged. Preoperative antibiotic: Ancef 2 grams IV Forrest Talavera DO Surgeon: Forrest Talavera office clerk assistant: Shazia Rehman Type of Anesthesia: Spinal Anesthesiologist: Sai Dougherty Admkarlee VTE Documentation VTE Present on Admission: No VTE Mechan Device Prophylaxis: SCD's and Thigh High DOUG Hose VTE Pharm Prophylaxis ordered?: Yes
--- NOTE | 2021-08-07 13:32 | RAD_ITS ---
STUDY: X-RAY - RIGHT KNEE REASON FOR EXAM: Male, 81 years old. Post op -- AP and Lateral xray of operative knee in PACU TECHNIQUE: 2 view(s) of the knee. COMPARISON: None. FINDINGS: Normal visualized distal femur. Normal visualized proximal tibia and fibula. Normal proximal tibiofibular articulation. The patient is status post total knee replacement. There is good alignment. Postoperative soft tissue changes. RAD/Knee 1 or 2 Views IMPRESSION: Status post total knee replacement. There is good alignment. Postoperative soft tissue changes. Electronically Signed: Zen Katz MD at 13:57 EDT , Service support ,
[2021-08-07 16:05] LABS: Bedside Glucose 93 mg/dL (70-110)
[2021-08-07] MEDS: Senna/Docusate Sodium 1 Tablet 2 TABLET PO (21:30)
[2021-08-07] MEDS: Aspirin 81 MG TAB.CHEW PO (21:30)
[2021-08-07] MEDS: Cefazolin 1 GM/50 ML BAG IV (21:31)
[2021-08-08 01:25] VITALS: BP 116/60; PULSE 60; RESP 18; TEMP 36.8; O2SAT 97
--- NOTE | 2021-08-08 03:33 | PCS.PANDOC ---
PANDEMIC DOCUMENTATION INITIATED: Date: 07/10/2021 Time: 190
[2021-08-08 04:12] VITALS: PULSE 60; O2SAT 96
[2021-08-08] MEDS: Cefazolin 1 GM/50 ML BAG IV (05:12)
[2021-08-08] MEDS: Acetaminophen 500 MG Tablet 1000 MG PO ×2 (05:15→13:53)
[2021-08-08 05:23] VITALS: BP 130/68; PULSE 61; RESP 18; TEMP 37.3; O2SAT 98
[2021-08-08 06:23] LABS: Hematocrit 27.6 % (40-54); Hemoglobin 8.4 g/dL (13.0-16.5); Mean Corp Hgb Conc 30.4 g/dL (32-36); Mean Corpuscular Hgb 31.9 pg (27.0-32.0); Mean Corpuscular Volume 104.9 fL (80-94); Platelet Count 128 K/mm3 (150-450); RBC Distribution Width CV 13.8 % (11.6-14.6); RBC Distribution Width SD 52.9 fl (35.1-43.9); Red Blood Count 2.63 M/mm3 (4.6-6.2); White Blood Count 9.5 K/mm3 (4.4-11.0)
[2021-08-08 06:49] LABS: Anion Gap 6 (5-15); BUN 26 mg/dL (7-18); BUN/Creat Ratio 20.8 RATIO (10-20); Calcium,Total 8.2 mg/dL (8.5-10.1); Chloride 106 mmol/L (98-107); Creatinine, Serum 1.25 mg/dL (0.70-1.30); EST Glomerular Filtration Rate 59 mL/min (>60); Est Glom Filt Rate - Afr Amer 72 mL/min (>60); Estimated Creatinine Clearance 46.36 ml/min; Glucose 136 mg/dL (74-106); Potassium 4.3 mmol/L (3.5-5.1); Sodium Level 138 mmol/L (136-145)
[2021-08-08 09:00] VITALS: BP 112/64; PULSE 59; RESP 16; TEMP 36.4; O2SAT 99
[2021-08-08] MEDS: Senna/Docusate Sodium 1 Tablet 2 TABLET PO (09:08)
[2021-08-08] MEDS: Aspirin 81 MG TAB.CHEW PO (09:08)
[2021-08-08] MEDS: oxyCODONE 5 MG Tablet PO ×3 (09:08→14:51)
--- NOTE | 2021-08-08 09:55 | CASEMGMT ---
Social Work Note HCPOA and LW are on file at [facility]. SW printed off copies and placed on pt's chart. Brianne Brown BANDER HAND, HOME MANAGEMENT SUPERVISOR
--- NOTE | 2021-08-08 12:16 | PCM.DC ---
Discharge Instructions Diet Discharge Diet: No restrictions Activity Discharge Activity: Use Walker Weight Bearing Status: Weight bearing as tolerated Keep extremity elevated above heart level: Operative Extremity Dressing / Incision Call your doctor if your incision/area has: Continuous Slow Oozing, Sudden Increased Bleeding, Increased Pain/ Swelling, Increased Redness, Foul Smelling Discharge and Swelling at the incision site Call your doctor if you observe: Fever of 101 or Higher, Coldness, Increased Pain, Numbness or Tingling, Change in Color, Inability to urinate, Inability to have a bowel movement, Using more than 1 pad per hour, Shortness of breath, Dizziness, Chest pain and Calf discomfort Suture Line Care: Avoid Pulling/Pushing and Avoid Pinching/Bending Remove Dressing in: 5 days Cleanse incision/area with: Soap & Water Follow Up Care Please Follow Up With: Tino Gordon PA-C When: 09/05/21--- and call to schedule appointment in 2 weeks w/ Summer Medina for staple removal. Test Results: Test results from this visit will be discussed in further detail at your follow-up appointment, if applicable. Discharge Plan Admission Admit Date/Time: 08/07/21 18:27 Attending Provider: Forrest Talavera Primary Care Provider: Richard Morley Chi Discharge Orders/Prescriptions Prescriptions: New oxycodone 5 mg Tablet 5 - 10 mg PO Q4H PRN PRN (Reason: Pain Score 4-10) 7 Days Qty: 56 RF: 0 sennosides-docusate sodium [Stool Softener-Stimulant Laxat] 8.6-50 mg Tablet 2 tab PO BID Qty: 30 RF: 0 acetaminophen 500 mg Tablet 1,000 mg PO Q8 Qty: 90 RF: 0 Continued carvedilol 6.25 mg tablet 6.25 mg PO BID Qty: 180 RF: 3 famotidine 40 mg tablet 40 mg PO DAILY RF: 0 polyethylene glycol 3350 [Miralax] 17 gram/dose powder 17 g PO DAILY RF: 0 tamsulosin 0.4 MG capsule 0.4 mg PO BID RF: 0 allopurinol 300 MG tablet 300 mg PO DAILY RF: 0 polysaccharide iron complex [iFerex 150] 150 mg iron capsule 150 mg PO DAILY RF: 0 Unisom (diphenhydramine) 50 mg/30 mL Liquid 50 mg PO QHS PRN (Reason: Sleep) RF: 0 furosemide [Lasix] 20 mg tablet 20 mg PO .COMPLEX RF: 0 Xarelto 20 mg tablet 20 mg PO DAILY RF: 0 atorvastatin 20 mg tablet 20 mg PO QHS Qty: 90 RF: 3 gabapentin 100 mg capsule 100 mg PO QHS RF: 0 Held acetaminophen 650 mg Tablet Extended Release 1,300 mg PO Q12H RF: 0 Hold Instructions: Resume on 08/28/21. Referrals / Follow Up: Richard Morley Chi, MD [Primary Care Provider] -
--- NOTE | 2021-08-08 12:20 | PCM.PN.ORT ---
Subjective Subjective Patient is s/p right total knee arthroplasty with Dr. Talavera. Patient resting comfortably in bed. Rates pain 5/ 10 at rest. With movement 7/10. States taking Tylenol, oxycodone and ice help to relieve pain. Patient has been up with therapy. Walking with the assit of a walker. Afebrile, no chest pain, shortness of breath, negative calf pain/ erythema, and no other signs of DVT. Objective Data Objective Data Vital Signs: Vital Signs Temp Pulse Resp BP Pulse Ox 97.5 F L 59 L 16 112/64 99 08/08/21 09:00 08/08/21 09:00 08/08/21 09:00 08/08/21 09:00 08/08/21 09:00 Oxygen Flow Rate (L/min) 6 Oxygen Delivery Method Room Air Weight: 112.037 kg Body Mass Index (BMI) 37.5 Intake & Output: Intake and Output for Last 24 Hours 08/06/21 08/07/21 08/08/21 23:59 23:59 23:59 Intake Total 266.5 / 1766.5 1950 / 1950 Output Total 150 / 150 Balance 266.5 / 1766.5 1800 / 1800 Lab / Micro Data Result Diagrams: 08/08/21 05:55 08/08/21 05:55 Labs: Laboratory Results - last 24 hr 08/07/21 08:41: POC Glucose 93 08/08/21 05:55: WBC 9.5, RBC 2.63 L, Hgb 8.4 L, Hct 27.6 L, MCV 104.9 H, MCH 31.9, MCHC 30.4 L, RDW Std Deviation 52.9 H, RDW Coeff of Jesús 13.8, Plt Count 128 L, MPV 11.0 08/08/21 05:55: Sodium 138, Potassium 4.3, Chloride 106, Carbon Dioxide 26.0, Anion Gap 6, BUN 26 H, Creatinine 1.25, Estim Creat Clear Calc 46.36, Est GFR (MDRD) Af Amer 72, Est GFR (MDRD) Non-Af 59 L, BUN/Creatinine Ratio 20.8 H, Glucose 136 H, Calcium 8.2 L Micro: Microbiology 07/26/21 09:44 Swab (Method) Nasal Screen MRSA/MSSA - Final Radiography Diagnostic Testing: Radiology Impression Knee X-Ray 08/07/21 13:32 IMPRESSION: Status post total knee replacement. There is good alignment. Postoperative soft tissue changes. Electronically Signed: Zen Katz MD at 13:57 EDT , Service support , Physical Exam Narrative Patient resting comfortably in bed No signs of acute distress Satting well on room air Limb is warm to touch, Sensation intact throughout entire lower extremity, including saphenous, sural, superficial and deep peroneal, and tibial distribution. DP/PT pulses bounding. Dressing has been changed multiple times due to sanguinous drainage. At this time it is clear dry intact. Calf nontender to palpation, no erythema, no edema. Negative Homans Assessment & Plan Assessment/Plan (1) Status post total right knee replacement: PLAN: 1. Will continue PT today 2. plan for discharge this afternoon following PT patient has been accepted to acute rehab. 3. Patient will follow up for his post op appointment on Adalberto Rodney on 09/05/2021. He needs to call and schedule a appointment for 2 weeks from his surgery for staple removal 4. Patient has outpatient PT appointment on 08/11/2021 5. WBC 9.5 no acute reactive leukocytosis 6. H/H 8.4/27.6: post operavtive anemia secondary to acute blood loss intraoperatively. Patient is asymptomatic at this time. No intraoperative complications. will continue to monitor. no acute interventions. 7. DVT prophylaxis : Patient will resume home Xarelto 20 mg once daily. 8. Pain control: patient instructed to take tylenol 500mg 2 tablets TID. and oxycodone 1-2 tablets every 4-6 hours only as needed for pain control. 9. Patient also given a prescription of , Pepcid for ulcer prophylaxis, and senna as needed for constipation.
--- NOTE | 2021-08-08 12:30 | CASEMGMT ---
IKER GUTIERREZ Assessment: Face to Face with pt for initial transition planning/care coordination assessment. RN MATT introduced self and role at [facility], pt voices understanding and consents to assessment. Pt is A/O x4 and answers all questions appropriately at this time. Pt sitting up in chair eating lunch in no distress with son at bedside. Care providers, pharmacy, and demographics verified/updated. Admitting Dx: R Total Knee with Jose PCP:Peyman Specialists:Knapic, ortho; Fascione, pod; Basali, pain mgmt; Moodispaw, cardio Preferred Pharmacy: [facility] Retail while inpt Insurance: [facility], MMO Prescription Benefit: yes LW/HPOA: Pt has a LW/DPOA and it is on file at [facility]. His DPOA is his Vanita Schwarz. LNOK: Vanita Schwarz, ; Severino Schwarz, son Living Arrangements: Pt lives in a two story house with 3 steps to enter to go upstairs and 9 steps to enter to go downstairs. Pt has his bedroom and bathroom on the lower level. Pt states prior to surgery he was I in ADL's and denies concerns at home. Transportation: Pt reports he drives himself and denies concerns with transportation. DME/HHC/SNF: Pt has a grab bar in the shower, FWW and rollator. Pt denies previous HHC and has been at [facility]. Pt states he would like to go to [facility] Rehab unit. Patient was provided a list of SNF providers including quality and resource use data and consistent with the patient?s preferred geographic region, medical needs, and insurance network. FRANDY Brown already aware. Pt states no further concerns/needs. CM to follow. Advised pt to ask CM if any further question/concerns/needs arise, voices understanding. Pt Goal: Rehab unit Plan: Rehab unit
--- NOTE | 2021-08-08 12:56 | CASEMGMT ---
Social Work Note SW received referral for SNF vs [facility]. Pt mentioned going to the second or fourth floor at [facility] for rehabilitation. SW placed a call to Mckayla with TCU/[facility]. [facility] is able to accept pt today. FRANDY updated PA. FRANDY updated RN CM who updated pt. Plan: [facility] today Brianne Brown FERMENTOLOGIST, MARKET DEVELOPMENT EXECUTIVE
[2021-08-08 13:25] VITALS: O2SAT 98
[2021-08-08] MEDS: Rivaroxaban 20 MG Tablet PO (13:52)
[2021-08-08 13:56] VITALS: BP 150/75; PULSE 60; RESP 16; TEMP 36.5; O2SAT 95
--- NOTE | 2021-08-08 14:05 | NURSING ---
report called to Alyson in rehab unit. pt will be transferred to [facility], will medicate with oxyir when due and then transfer him.
--- NOTE | 2021-08-08 15:38 | PHA.DC.MR ---
Pharmacy Service has performed discharge medication reconciliation for this patient. The patient's discharge medication list was reviewed for discrepancies and discrepancies were resolved. Home Medications allopurinol 300 mg PO DAILY 09/20/17 tamsulosin 0.4 mg PO BID 09/20/17 carvedilol 6.25 mg tablet 6.25 mg PO BID #180 tab 10/29/19 atorvastatin 20 mg tablet 20 mg PO QHS #90 tab 10/27/20 gabapentin 100 mg capsule 100 mg PO QHS 01/18/21 polyethylene glycol 3350 17 gram/dose oral powder 17 g PO DAILY 05/31/21 Xarelto 20 mg PO DAILY 06/07/21 Unisom (diphenhydramine) 50 mg PO QHS PRN 07/21/21 acetaminophen 1,300 mg PO Q12H 07/21/21 polysaccharide iron complex [iFerex 150] 150 mg PO DAILY 07/21/21 famotidine 40 mg tablet 40 mg PO DAILY 07/26/21 furosemide 20 mg tablet 20 mg PO .COMPLEX tab 07/26/21 acetaminophen 1,000 mg PO Q8 #90 tab 08/08/21 oxycodone 5 - 10 mg PO Q4H PRN PRN 7 Days #56 tab 08/08/21 sennosides-docusate sodium [Stool Softener-Stimulant Laxat] 2 tab PO BID #30 tab 08/08/21
== END 2021-08-08 15:41 ==
LOC: MS3 08-08 08:38
PROVIDERS: Anesthesiology; Admitting Provider Orthopaedic Surgery; PCP Family Medicine Geriatric Medicine; Referring Provider Orthopaedic Surgery; Visit Provider Orthopaedic Surgery
PROC: 0SRC0JZ Replacement of Right Knee Joint with Synthetic Substitute, Open Approach (ICD-10-PCS; CPT 27447; principal; 2021-08-07 10:00)
DX: M17.11 Unilateral primary osteoarthritis, right knee (principal); I25.10 Atherosclerotic heart disease of native coronary artery without angina pectoris; I42.0 Dilated cardiomyopathy; I10 Essential (primary) hypertension; E78.5 Hyperlipidemia, unspecified; D50.9 Iron deficiency anemia, unspecified; I48.0 Paroxysmal atrial fibrillation; K21.9 Gastro-esophageal reflux disease without esophagitis; G47.30 Sleep apnea, unspecified; M19.90 Unspecified osteoarthritis, unspecified site; M10.9 Gout, unspecified; Z79.899 Other long term (current) drug therapy; Z79.01 Long term (current) use 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s; Z95.810 Presence of automatic (implantable) cardiac defibrillator
CPT/HCPCS: 01402; 27447; 64447; S2900; 36415; 73560; 80048; 80076; 82962; 83036; 83735; 85027; 85610; 85730; 87081; 88305; 88311; 93005; 96365; 96366; 97110; 97162; 97166; 97530; 99218; 99251; C1776; J7120; G0378; G0463; J2405

== ENCOUNTER 2021-08-08 15:55 | Inpatient (IN) | payer MEDICARE, OTHER, SELFPAY ==
[2021-08-08 16:33] VITALS: BMI 35.0
[2021-08-08 16:34] VITALS: BP 153/77; PULSE 60; RESP 17; TEMP 36.6; O2SAT 98
[2021-08-08 21:30] VITALS: BP 104/62; PULSE 60; RESP 18; TEMP 36.5; O2SAT 98
[2021-08-08] MEDS: Atorvastatin Calcium 20 MG Tablet PO (21:43)
[2021-08-08] MEDS: Acetaminophen 500 MG Tablet 1000 MG PO (21:43)
[2021-08-08] MEDS: Senna/Docusate Sodium 1 Tablet 2 TABLET PO (21:43)
[2021-08-08] MEDS: Gabapentin 100 MG Capsule PO (21:43)
[2021-08-08] MEDS: Tamsulosin HCl 0.4 MG Capsule PO (21:43)
[2021-08-08] MEDS: Carvedilol 6.25 MG Tablet PO (21:43)
[2021-08-08] MEDS: oxyCODONE 5 MG Tablet PO (22:10)
[2021-08-09] MEDS: Acetaminophen 500 MG Tablet 1000 MG PO ×3 (04:45→22:41)
[2021-08-09] MEDS: oxyCODONE 5 MG Tablet PO ×2 (04:45→13:53)
[2021-08-09] MEDS: Famotidine 20 MG Tablet 40 MG PO (08:10)
[2021-08-09] MEDS: Senna/Docusate Sodium 1 Tablet 2 TABLET PO ×2 (08:10→22:42)
[2021-08-09] MEDS: Allopurinol 300 MG Tablet PO (08:10)
[2021-08-09] MEDS: Tamsulosin HCl 0.4 MG Capsule PO ×2 (08:11→22:41)
[2021-08-09] MEDS: Carvedilol 6.25 MG Tablet PO ×2 (08:11→22:41)
[2021-08-09] MEDS: Iron Polysaccharide Complex 150 MG CAPSULE PO (08:11)
[2021-08-09] MEDS: Furosemide 40 MG Tablet PO (08:12)
[2021-08-09 08:20] VITALS: PULSE 62; RESP 16; O2SAT 95
[2021-08-09 08:44] VITALS: BP 111/52; PULSE 62; RESP 16; TEMP 36.8; O2SAT 95
--- NOTE | 2021-08-09 10:50 | NURSING ---
noted while pt was having therapy new drainage was to the knee mepilex. area circled to monitor increased drainage
--- NOTE | 2021-08-09 13:19 | HP.PCM_ITS ---
[facility] - General General Date of Admission: 08/08/21 HPI Narrative MIKE RAMOS, is a 81 YO M with a PMH of angiographically insignificant coronary artery disease, dilated cardiomyopathy, atrial fibrillation, sick sinus syndrome, history of biventricular ICD, osteoarthritis, obesity, gout, BPH, hyperlipidemia, chronic anticoagulation with Xarelto, tobacco dependence in remission, irritable bowel syndrome, history of CVA, history of nephrolithiasis, hypertension, hyperlipidemia, left bundle branch block, obstructive sleep apnea, history of testicular cancer and chronic macrocytic anemia who underwent an elective R TKA by Dr. Talavera on 08/07/21. He was transferred to the acute rehab unit at [facility] on 08/08/21 for 3 hours of therapy daily to restore function at or near his prior level of function. He tells me that he slept very well last night. He did have some increased knee pain this morning when he awoke however it is relieved with the medication that he has been ordered. He denies chest pain, shortness of breath, palpitations, dysuria, abdominal pain, constipation, lightheadedness. All recent lab was personally reviewed. The transferrin saturation in April was 17.5% and in a patient with chronic renal failure this is significant for iron deficiency. [facility] Medical History (Updated 08/11/21 @ 09:[address] Allison Damon, ) Ambulates with cane Anemia Arthritis Atherosclerotic heart disease of [place] coronary artery without angina pectoris Back pain Biventricular automatic implantable cardioverter defibrillator in situ BPH (benign prostatic hyperplasia) Bruising Cancer Cardiology follow-up encounter Dilated cardiomyopathy Essential hypertension Former smoker Gastric reflux GERD (gastroesophageal reflux disease) Gout Hiatal hernia High cholesterol History of atrial fibrillation History of cardiac pacemaker History of echocardiogram History of edema History of IBS History of renal disease History of stress test History of stroke History of wrist fracture Hx of renal calculi Hyperlipidemia Hypertension Left bundle branch block Leg cramps skilled nursing current use 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 Osteoarthritis Paroxysmal atrial fibrillation Premature ventricular contraction Shortness of breath on exertion Sick sinus syndrome Sleep apnea Stroke/cerebrovascular accident Testicular cancer Wears dentures Wears glasses Home Medications allopurinol 300 mg PO DAILY 09/20/17 [History Last Taken 08/06/21] tamsulosin 0.4 mg PO BID 09/20/17 [History Last Taken 08/06/21] gabapentin 100 mg capsule 100 mg PO QHS 01/18/21 [History Last Taken 08/06/21] Xarelto 20 mg PO DAILY 06/07/21 [History Last Taken 08/08/21 14:00] polysaccharide iron complex [iFerex 150] 150 mg PO DAILY 07/21/21 [History Last Taken 08/06/21] famotidine 40 mg tablet 40 mg PO DAILY 07/26/21 [History Last Taken 08/06/21] furosemide 20 mg tablet 20 mg PO QODAY tab 07/26/21 [History Last Taken 08/08/21 10:00] acetaminophen 1,000 mg PO Q8 08/08/21 [History Last Taken 08/08/21 14:00] atorvastatin 20 mg PO QHS 08/08/21 [History Last Taken Unknown] carvedilol 6.25 mg PO BID 08/08/21 [History Last Taken Unknown] oxycodone 5 - 10 mg PO Q4H PRN PRN 08/08/21 [History Last Taken 08/08/21 14:50] Allergy/AdvReac Type Severity Reaction Status Date / Time No Known Allergies Allergy Verified 08/07/21 08:17 Family History Father , Age 59, gallbladder complications No problems noted. Mother , Age 85 No problems noted. Brother , Age 68 Cancer Brother CVA (cerebral vascular accident) seizure disorder post fall injury Surgical History (Updated 08/11/21 @ 09:[address] Allison Damon, DO) History of appendectomy History of bunionectomy History of cardiac catheterization History of left heart catheterization History of testicular surgery Hx of colonoscopy S/P cataract surgery Status post total right knee replacement Social History Smoking Status: Former smoker quit date: 11/25/94 ROS Review of Systems ROS Unobtainable: Denies due to encephalopathy, due to endotracheal tube, due to mental condition or due to mental status Constitutional Constitutional: Denies anorexia, change in weight, chills, fatigue, fever(s), night sweats or weakness Eyes Eyes: Denies blurry vision, change in vision, eye pain or loss of vision ENT HEENT: Denies dysphagia, headache(s), hearing loss, nasal congestion or sore throat Cardiovascular Cardiovascular: Denies chest pain, edema, lightheadedness, orthopnea, palpitations, paroxysmal nocturnal dyspnea or syncope Respiratory/Chest Respiratory/Chest: Denies cough, shortness of breath at rest or wheezing Gastrointestinal Gastrointestinal: Denies abdominal pain, constipation, diarrhea, dyspepsia, hematemesis, hematochezia, nausea or vomiting Genitourinary Genitourinary: Denies dysuria, hematuria, urinary frequency, urinary hesitancy, urinary incontinence or urinary urgency Musculoskeletal Musculoskeletal: Reports difficulty walking, joint pain, joint swelling and stiffness; Denies back pain or neck pain Neurologic Neurologic: Denies confusion, disequilibrium, dizziness, focal weakness, headache(s), paresthesias, seizures or tremor(s) Psychiatric Psychiatric: Denies anxiety, depression, homicidal ideation or suicidal ideation Endocrine Endocrinology: Denies change in body appearance, polydipsia or polyuria Hematologic/Lymphatic Hematologic/Lymphatic: Reports easy bleeding and easy bruising Allergic/Immunologic Allergic/Immunologic: Denies rhinitis, eczemia or asthma Vital Signs Vital Signs Vital Signs: 08/08/21 16:34 08/08/21 21:30 08/09/21 08:20 Temperature 97.8 F 97.7 F L Temperature Source Oral Oral Pulse Rate 60 60 62 Pulse Strength Weak (1+) Weak (1+) Respiratory Rate 17 18 16 Respiratory Effort Normal Non-Labored Normal Non-Labored Respiratory Depth Normal Normal Respiratory Pattern Normal Normal Blood Pressure 153/77 H 104/62 Blood Pressure Mean 102 76 Blood Pressure Source Monitor Monitor Blood Pressure Position Semi-Fowlers Sitting Blood Pressure Location Right Forearm Right Arm Pulse Ox 98 98 95 Oxygen Delivery Method Room Air Room Air Room Air 08/09/21 08:44 Temperature 98.3 F Temperature Source Oral Pulse Rate 62 Pulse Strength Respiratory Rate 16 Respiratory Effort Respiratory Depth Respiratory Pattern Blood Pressure 111/52 L Blood Pressure Mean 71 Blood Pressure Source Monitor Blood Pressure Position Semi-Fowlers Blood Pressure Location Right Arm Pulse Ox 95 Oxygen Delivery Method Room Air Weight Weight: 244 lb 0.827 oz Body Mass Index (BMI) 35.0 Physical Exam Const alert, oriented x3 and no apparent distress Constitutional Narrative: He is sitting in the recliner at the bedside eating his lunch and looks comfortable. He denies pain at the present time. HEENT hearing grossly normal bilaterally and oropharynx normal HEENT Narrative: Mucous membranes are moist Head and Scalp: normocephalic and atraumatic Eyes PERRL, EOMs intact bilaterally, conjunctivae normal, no scleral icterus and normal visual ca by confrontation Chest Chest: symmetrical chest wall rise Resp clear to auscultation bilaterally Resp Narrative: Breath sounds are mildly diminished, especially in the bases. Effort and Inspection: able to speak in complete sentences Cardio regular rate, regular rhythm, S1 normal heart sound, S2 normal heart sound and no gallops GI normal to inspection, nondistended, normoactive bowel sounds and soft to palpation no CVA tenderness Extremity Extremity Narrative: mild ankle edema on the right......I suspect this is due to the surgery and due to CHF Skin General Skin Exam: no breakdown Rashes: no rashes Wound Narrative: Dressing is in place over the knee and is not to be removed yet. There is no erythema around the dressing. Neuro oriented x3 and CN's II-XII intact bilaterally Neuro Narrative: generalized weakness Psych Appearance: grossly normal, appropriate and well kempt Attitude: calm Activity / Motor Behavior: appropriate eye contact Assessment & Plan Assessment/Plan (1) Physical debility: (2) Status post total right knee replacement: (3) Iron deficiency anemia: QUALIFIERS: Iron deficiency anemia type: unspecified iron deficiency Qualified Code(s): D50.9 - Iron deficiency anemia, unspecified (4) Chronic renal failure, stage 3a: (5) Atherosclerotic heart disease of [place] coronary artery without angina pec toris: QUALIFIERS: [place] vs. transplanted heart: [place] heart Qualified Code(s): I25.10 - Atherosclerotic heart disease of [place] coronary artery without angina pectoris (6) Essential hypertension: (7) Left bundle branch block: (8) Sleep apnea: (9) History of stroke: (10) long term care social worker current use 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: (11) Biventricular automatic implantable cardioverter defibrillator in situ: (12) Hyperlipidemia: QUALIFIERS: Hyperlipidemia type: unspecified Qualified Code(s): E78.5 - Hyperlipidemia, unspecified (13) Paroxysmal atrial fibrillation: (14) Sick sinus syndrome: (15) Dilated cardiomyopathy: (16) BPH (benign prostatic hyperplasia): PLAN: PLAN PT for gait stability OT for ADL's Analgesics as needed Bowel protocol Fall precautions Assess for Anxiety/Depression GI prophylaxis with famotidine DVT prophylaxis with DOUG bradshaw and Mg Follow up with Dr. Talavera following DC from IP Rehab He is on an H2 julianne and an iron supplement. The iron may not be getting ab sorbed due to chronic acid suppression. Will give iron sucrose while he is on rehab and add Vitamin C to add in the absorption of oral iron. He had a colonoscopy and an EGD in the past few months. the EGD was normal and he had a small polyp on colonoscopy that was removed with a snare. Path report showed the polyp to be a tubular adenoma. Charges/Coding Visit Charges Inpatient E&M: 90801 Init Hosp L3
--- NOTE | 2021-08-09 13:21 | PCM.RU.PYE ---
Admission Information Primary Diagnosis:: Debility due to recent right total knee arthroplasty on 08/07/2021 Status Changes from Prescreening?: No changes Identified Actual Problem List:: Skin Intergrity, Pain, ALteration in Cmfrt, Mobility Impaired, Self Care Deficit and Alteration-Leisure Activ. Potential Problem List:: DVT, Bleeding, Infection, UTI, Aspiration, Falls, Skin Integrity and Depression Risk of Complications DVT: LMWH and DOUG Hose Bleeding: Monitor Lab Values, Nursing to Teach Precautions for anti-coagulation therapy., Wound, if applicable, to be assessed every shift. and Stroke patients assessed for lethargy or change in status. Infection: Clinical Staff to Monitor for S/S of infection: and S/S of infection include fever, redness, warmth, etc. Urinary Tract Infection: Monitor for frequency, burning, discomfort, or incontinence. and Nursing will obtain urine sample for urinalysis and C&S when ordered. Aspiration: Clinical staff will monitor for coughing, drooling, congestion., Speech will evaluate swallowing and dsyphasia. and Nursing will monitor patient swallowing during meals. Falls: Patient will be evaluated for Fall Precautions and Patient will be placed on Fall Precautions as indicated per protocol. Skin Breakdown: Nursing will assess skin daily using assessment tool. and Nursing will place on Skin Breakdown Precautions as indicated. Pain: Clinical staff will assess patient's pain level per protocol., Medications will be given, if needed, and the pain level reassessed. and Other methods: Massage, distraction, decrease stimulus, etc. used PRN. Plan of Care Patient requires physician specializing in physical medicine and rehab oversight to provide close medical supervision of rehab issues including: Pain Management, Sleep Problems, Bowel and Bladder, Medical and co-morbidity Management, DVT prophylaxis, Rehabilitation Leadership and Coordination of treatment team Patient needs Physical Therapy: For a minimum of 1 hour and At least 5 out of 7 days Patient needs Physical Therapy to improve:: Mobility, Strengthening, Transfers, Stretching, ROM, Endurance, Stairs, Gait and Balance Patient needs Occupational Therapy: For a minimum of 1 hour and At least 5 out of 7 days Patient needs Occupational Therapy to improve ADL's incl.: Eating, Grooming, Bathing, Dressing, Toileting, Toilet transfers, Community Reintegration, Higher functioning activities, Household tasks, Adaptive Equipment, Splinting and Other activities as determined Patient requires 24/7 Rehabilitation Nursing for: Pain Issues, Identifying and preventing risk factors, Monitoring and reporting current medical conditions, Assisting with ambulation, transfer, and all ADL's, Teaching patients about disease process and medications, Family teaching, Providing safe environment, Bowel and Bladder Issues, Skin integrity and Medication Management Patient needs Senior Contract Specialist/ Case Management for: Discharge Planning, Arranging Home Equipment or Services and Family Interventions Patient needs Dietary and Nutrition Services for: Adequate Nutrition, Nutritional Supplements and Nutritional Education Goals Patient will remain: free from falls and or injury at time of discharge. Patient will perform bed mobility at: MOD I level of assist. Patient will complete transfers from bed to chair at: MOD I level of assist. Patient will ambulate: with LRD and - (200 feet with a wheeled walker on various surfaces) Patient will complete upper body dressing at: MOD I level of assist. Patient will complete lower body dressing at: MOD I level of assist. Patient will complete toileting at: MOD I level of assist. Patient will perform bathing at: MOD I level of assist. Patient will complete grooming at: MOD I level of assist. Patient will complete home management skills at: MOD I level of assist. Patient will achieve: 12 stairs (With 1 handrail and the least restrictive device to allow access to his basement) and - (1 curb step) Patient will have pain level of: of 3 or less Patient's skin will: remain intact Patient will receive: adequate nutrition.
--- NOTE | 2021-08-09 16:45 | CHAPLAIN ---
Type of Pastoral Visit _x__ Initial Visit ___ Follow-up Visit ___ On-call Visit ___ General Patient Visit ___ Spiritual Assessment ___ Family Conference ___ Bereavement ___ Rapid Response ___ Code Blue ___ Other (describe below) Pastoral Care Referral From _x__ Patient ___ Family ___ Nurse ___ Physician ___ Disassembler ___ Brand Inspector ___ Other (describe below) Sacrament/Intervention _x__ Active listening ___ Anointing ___ Rastafari ___ Bereavement ___ Communion ___ Maddie exploration ___ _x__ Life review _x__ Prayer ___ Reconciliation ___ Sacrament of Sick ___ Supportive presence ___ Wedding ___ Other (describe below) Pastoral Comments
[2021-08-09] MEDS: Rivaroxaban 20 MG Tablet PO (17:31)
[2021-08-09 20:16] VITALS: BP 142/56; PULSE 60; RESP 18; TEMP 36.8; O2SAT 95
[2021-08-09] MEDS: Atorvastatin Calcium 20 MG Tablet PO (22:40)
[2021-08-09] MEDS: Gabapentin 100 MG Capsule PO (22:41)
[2021-08-09] MEDS: 0.9% Saline Lock 10 ML Syringe IV (22:45)
[2021-08-10] MEDS: Acetaminophen 500 MG Tablet 1000 MG PO ×3 (05:14→22:44)
[2021-08-10 08:13] VITALS: BP 103/56; PULSE 60; RESP 16; TEMP 36.8; O2SAT 99
[2021-08-10] MEDS: Carvedilol 6.25 MG Tablet PO ×2 (08:19→22:45)
[2021-08-10] MEDS: Iron Polysaccharide Complex 150 MG CAPSULE PO (08:19)
[2021-08-10] MEDS: Furosemide 20 MG Tablet PO (08:20)
[2021-08-10] MEDS: Tamsulosin HCl 0.4 MG Capsule PO ×2 (08:20→22:45)
[2021-08-10] MEDS: Famotidine 20 MG Tablet 40 MG PO (08:20)
[2021-08-10] MEDS: Allopurinol 300 MG Tablet PO (08:20)
[2021-08-10] MEDS: oxyCODONE 5 MG Tablet PO (09:20)
[2021-08-10] MEDS: Rivaroxaban 20 MG Tablet PO (17:29)
[2021-08-10 19:54] VITALS: BP 134/54; PULSE 59; RESP 18; TEMP 36.9; O2SAT 96
[2021-08-10] MEDS: Senna/Docusate Sodium 1 Tablet 2 TABLET PO (22:44)
[2021-08-10] MEDS: Atorvastatin Calcium 20 MG Tablet PO (22:45)
[2021-08-10] MEDS: Gabapentin 100 MG Capsule PO (22:45)
[2021-08-10] MEDS: 0.9% Saline Lock 10 ML Syringe IV (22:45)
[2021-08-11] MEDS: Acetaminophen 500 MG Tablet 1000 MG PO ×3 (05:20→21:47)
[2021-08-11] MEDS: Furosemide 40 MG Tablet PO (08:15)
[2021-08-11] MEDS: Allopurinol 300 MG Tablet PO (08:15)
[2021-08-11] MEDS: Iron Polysaccharide Complex 150 MG CAPSULE PO (08:15)
[2021-08-11] MEDS: Famotidine 20 MG Tablet 40 MG PO (08:16)
[2021-08-11] MEDS: Senna/Docusate Sodium 1 Tablet 2 TABLET PO ×2 (08:16→21:49)
[2021-08-11] MEDS: Carvedilol 6.25 MG Tablet PO ×2 (08:16→21:47)
[2021-08-11] MEDS: Tamsulosin HCl 0.4 MG Capsule PO ×2 (08:16→21:47)
[2021-08-11 08:27] VITALS: BP 115/49; PULSE 59; RESP 16; TEMP 36.7; O2SAT 98
[2021-08-11] MEDS: oxyCODONE 5 MG Tablet PO (08:37)
--- NOTE | 2021-08-11 10:09 | PN_ITS ---
Progress Note Afebrile VSS-blood pressure is well controlled and the heart rate is consistently 59-62. Maintaining appropriate oxygen saturation on RA Oral intake is good Discussed with nursing - no problems that need addressed Reviewed the PT/OT notes Medication list reviewed. He is having pain in the knee but the medication helps when it is given. He den ies chest pain, shortness of breath, orthopnea, palpitations, lightheadedness, calf pain. Physical Exam Const alert, oriented x3 and no apparent distress Resp clear to auscultation bilaterally Cardio regular rate, regular rhythm and no gallops GI normal to inspection, nondistended, normoactive bowel sounds and soft to palpation Extremity Extremity Narrative: the RLE is edematous > L. Negative Tyler and Jaydon's signs. Skin General Skin Exam: no breakdown Rashes: no rashes Assessment & Plan Assessment/Plan (1) Iron deficiency anemia: QUALIFIERS: Iron deficiency anemia type: unspecified iron defi ciency Qualified Code(s): D50.9 - Iron deficiency anemia, unspecified (2) Physical debility: (3) Status post total right knee replacement: PLAN: 1. Check a CBC, BMP, Mag on Saturday. 2. continue therapy 3. Pain is adequately controlled with the current drug regimen Visit Charges Inpatient E&M: 92769 Subs Hosp L2
[2021-08-11] MEDS: Sodium Ferric Gluconat 250 MG in 0.9% Normal Saline 250 ML 135 MG IV (11:05)
[2021-08-11] MEDS: 0.9% Saline Lock 10 ML Syringe IV ×2 (13:10→22:03)
[2021-08-11] MEDS: Rivaroxaban 20 MG Tablet PO (17:26)
[2021-08-11] MEDS: Atorvastatin Calcium 20 MG Tablet PO (21:47)
[2021-08-11] MEDS: Gabapentin 100 MG Capsule PO (21:47)
[2021-08-11 22:00] VITALS: BP 138/62; PULSE 62; RESP 18; TEMP 36.2; O2SAT 96
[2021-08-12] MEDS: Acetaminophen 500 MG Tablet 1000 MG PO ×3 (05:26→21:13)
[2021-08-12] MEDS: Iron Polysaccharide Complex 150 MG CAPSULE PO (08:06)
[2021-08-12] MEDS: Famotidine 20 MG Tablet 40 MG PO (08:06)
[2021-08-12] MEDS: Allopurinol 300 MG Tablet PO (08:07)
[2021-08-12] MEDS: Senna/Docusate Sodium 1 Tablet 2 TABLET PO (08:07)
[2021-08-12] MEDS: Carvedilol 6.25 MG Tablet PO ×2 (08:08→21:13)
[2021-08-12] MEDS: Tamsulosin HCl 0.4 MG Capsule PO ×2 (08:08→21:13)
[2021-08-12] MEDS: Ascorbic Acid 500 MG Tablet PO (08:08)
[2021-08-12] MEDS: Furosemide 20 MG Tablet PO (08:13)
[2021-08-12] MEDS: oxyCODONE 5 MG Tablet PO (08:15)
[2021-08-12 09:08] VITALS: BP 122/53; PULSE 59; RESP 16; TEMP 36.7; O2SAT 99
[2021-08-12] MEDS: 0.9% Saline Lock 10 ML Syringe IV ×2 (09:56→21:46)
[2021-08-12] MEDS: Sodium Ferric Gluconat 250 MG in 0.9% Normal Saline 250 ML 135 MG IV (09:56)
[2021-08-12] MEDS: Rivaroxaban 20 MG Tablet PO (17:17)
[2021-08-12] MEDS: Atorvastatin Calcium 20 MG Tablet PO (21:13)
[2021-08-12] MEDS: Gabapentin 100 MG Capsule PO (21:13)
[2021-08-12 21:57] VITALS: BP 155/69; PULSE 70; RESP 16; TEMP 36.8; O2SAT 96
[2021-08-13] MEDS: Acetaminophen 500 MG Tablet 1000 MG PO ×3 (05:48→21:00)
[2021-08-13] MEDS: Ascorbic Acid 500 MG Tablet PO (08:04)
[2021-08-13] MEDS: Iron Polysaccharide Complex 150 MG CAPSULE PO (08:04)
[2021-08-13] MEDS: Carvedilol 6.25 MG Tablet PO ×2 (08:05→20:21)
[2021-08-13] MEDS: oxyCODONE 5 MG Tablet PO ×2 (08:05→19:48)
[2021-08-13] MEDS: Tamsulosin HCl 0.4 MG Capsule PO ×2 (08:05→20:22)
[2021-08-13] MEDS: Famotidine 20 MG Tablet 40 MG PO (08:05)
[2021-08-13] MEDS: Senna/Docusate Sodium 1 Tablet 2 TABLET PO ×2 (08:07→20:22)
[2021-08-13] MEDS: Allopurinol 300 MG Tablet PO (08:09)
[2021-08-13] MEDS: Furosemide 40 MG Tablet PO (08:09)
[2021-08-13 08:24] VITALS: BP 123/82; PULSE 62; RESP 16; TEMP 36.8; O2SAT 95
[2021-08-13] MEDS: Sodium Ferric Gluconat 250 MG in 0.9% Normal Saline 250 ML 135 MG IV (10:18)
[2021-08-13] MEDS: 0.9% Saline Lock 10 ML Syringe IV (10:19)
[2021-08-13] MEDS: Rivaroxaban 20 MG Tablet PO (17:03)
[2021-08-13 19:28] VITALS: BP 136/67; PULSE 60; RESP 16; TEMP 36.9; O2SAT 99
[2021-08-13 20:04] VITALS: PULSE 60; RESP 16
[2021-08-13] MEDS: Gabapentin 100 MG Capsule PO (20:22)
[2021-08-13] MEDS: Atorvastatin Calcium 20 MG Tablet PO (20:23)
[2021-08-13 21:00] VITALS: BMI 35.0
[2021-08-14] MEDS: Acetaminophen 500 MG Tablet 1000 MG PO ×3 (05:28→20:10)
[2021-08-14 07:30] VITALS: BP 126/56; PULSE 60; RESP 16; TEMP 36.8; O2SAT 98
[2021-08-14] MEDS: Carvedilol 6.25 MG Tablet PO ×2 (08:00→20:08)
[2021-08-14] MEDS: oxyCODONE 5 MG Tablet PO (08:00)
[2021-08-14] MEDS: Tamsulosin HCl 0.4 MG Capsule PO ×2 (08:00→20:08)
[2021-08-14] MEDS: Famotidine 20 MG Tablet 40 MG PO (08:00)
[2021-08-14] MEDS: Allopurinol 300 MG Tablet PO (08:01)
[2021-08-14] MEDS: Ascorbic Acid 500 MG Tablet PO (08:01)
[2021-08-14] MEDS: Furosemide 20 MG Tablet PO (08:01)
[2021-08-14] MEDS: Iron Polysaccharide Complex 150 MG CAPSULE PO (08:01)
[2021-08-14] MEDS: Senna/Docusate Sodium 1 Tablet 2 TABLET PO ×2 (08:01→20:10)
[2021-08-14] MEDS: Nystatin Powder 15gm Bottle 1 APPLIC TOPICAL ×2 (08:04→20:09)
--- NOTE | 2021-08-14 12:18 | PCM.PN.BLA ---
Progress Note Nick was seen on TEAM rounds today. No family was present. Afebrile VSSBlood pressure is controlled.Heart rate is primarily paced at 60 bpm. Maintaining appropriate oxygen saturation on RA Oral intake is good Discussed with nursing - no problems that need addressed Reviewed the PT/OT notes Medication list reviewed.Pain is adequately controlled. He has no complaints other than he is cold in his room and the thermostat was increased for him. He denies cough, shortness of breath, dysuria, abdominal pain, nausea/vomiting,Lightheadedness, chest pain, palpitations. Physical Exam Const alert, oriented x3 and no apparent distress Constitutional Narrative: pleasant, appropriate General Appearance: cooperative Resp clear to auscultation bilaterally Cardio regular rate, regular rhythm and no gallops GI normal to inspection, nondistended, normoactive bowel sounds and soft to palpation Extremity Extremity Narrative: The RLE is considerably more swollen than the left. Both are RANDI wrapped. He denies calf pain. the incision is intact and there is No jessi-incisional erythema and no purulent discharge. There is resolving ecchymosis.He has a moderate sized blood-filled blister on the lateral side of the knee which is intact. 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 4 doses of Iron Sucrose IV planned 2. Continue therapy 3. He told the SW today he would like to go to [facility] [place]. Visit Charges Inpatient E&M: 14299 Subs Hosp L2
[2021-08-14 17:00] VITALS: BMI 35.0
[2021-08-14] MEDS: Rivaroxaban 20 MG Tablet PO (17:04)
--- NOTE | 2021-08-14 17:12 | CASEMGMT ---
Social Work IDT met with patient for Team meeting. Discussed patient's progress in therapy and nursing. Explained Medicare approved 14 days with DC 08/22. Pt wishes to transfer to [facility] as his won't assist him at home. He needs to be independent prior to DC home. SW to refer to [facility]. Will continue to follow. Jennifer Dhillon, DISABILITY COORDINATOR RN NIGHT
[2021-08-14 19:37] VITALS: BP 128/55; PULSE 60; RESP 16; TEMP 36.7; O2SAT 99
[2021-08-14 19:45] VITALS: PULSE 60; RESP 16; O2SAT 99; BMI 35.0
[2021-08-14] MEDS: Atorvastatin Calcium 20 MG Tablet PO (20:08)
[2021-08-14] MEDS: Gabapentin 100 MG Capsule PO (20:08)
[2021-08-14 21:05] VITALS: BMI 35.0
[2021-08-15] VITALS (12 sets, daily range): BP systolic 116–161; BP diastolic 52–69; PULSE 59–94; RESP 16–20; TEMP 36.3–36.9; O2SAT 95–100; BMI 35.0
--- NOTE | 2021-08-15 02:52 | NURSING ---
Reviewed and agree with EMERGENCY DISPATCHER documentation and assessment charting.
[2021-08-15 05:36] LABS: Absolute Lymphocyte Count 0.94 X10^3/uL (0.83-4.51); Absolute Neutrophil Count 2.5 X10^3/uL (2.0-7.7); Basophil# 0.02 X10^3/uL; Basophil% 0.5 % (0-1); Eosinophil# 0.22 X10^3/uL; Eosinophils% 5.1 % (0-5); Hemoglobin 6.7 g/dL (13.0-16.5); Lymphocyte # 0.94 X10^3/ul (0.83-4.51); Lymphocyte % 21.6 % (19-41); Mean Corp Hgb Conc 30.5 g/dL (32-36); Mean Corpuscular Hgb 31.5 pg (27.0-32.0); Mean Corpuscular Volume 103.3 fL (80-94); Mean Platelet Vol. 8.8 fl (6.2-12.0); Monocyte% 16.1 % (0-10); NRBC Flagged by Analyzer 0 % (0-5); Neutrophil # 2.46 X10^3/uL (2.7-7.7); Neutrophil % 56.5 % (47-70); Platelet Count 254 K/mm3 (150-450); RBC Distribution Width CV 14.3 % (11.6-14.6); RBC Distribution Width SD 53.4 fl (35.1-43.9); Red Blood Count 2.13 M/mm3 (4.6-6.2); White Blood Count 4.4 K/mm3 (4.4-11.0)
[2021-08-15] MEDS: Nystatin Powder 15gm Bottle 1 APPLIC TOPICAL ×2 (05:36→20:39)
[2021-08-15] MEDS: Acetaminophen 500 MG Tablet 1000 MG PO ×3 (05:37→20:38)
[2021-08-15 06:01] LABS: Anion Gap 2 (5-15); BUN 36 mg/dL (7-18); BUN/Creat Ratio 28.1 RATIO (10-20); Calcium,Total 8.4 mg/dL (8.5-10.1); Chloride 105 mmol/L (98-107); Creatinine, Serum 1.28 mg/dL (0.70-1.30); EST Glomerular Filtration Rate 58 mL/min (>60); Est Glom Filt Rate - Afr Amer 70 mL/min (>60); Estimated Creatinine Clearance 48.32 ml/min; Glucose 102 mg/dL (74-106); Magnesium 2.3 mg/dL (1.6-2.6); Phosphorus 3.2 mg/dL (2.5-4.9); Potassium 4.9 mmol/L (3.5-5.1); Sodium Level 138 mmol/L (136-145)
--- NOTE | 2021-08-15 07:52 | NURSING ---
Pt's consent form signed for 2 units of PRBC's.
[2021-08-15] MEDS: Carvedilol 6.25 MG Tablet PO ×2 (08:32→20:38)
[2021-08-15] MEDS: Famotidine 20 MG Tablet 40 MG PO (08:32)
[2021-08-15] MEDS: Furosemide 40 MG Tablet PO (08:33)
[2021-08-15] MEDS: Iron Polysaccharide Complex 150 MG CAPSULE PO (08:33)
[2021-08-15] MEDS: Ascorbic Acid 500 MG Tablet PO (08:33)
[2021-08-15] MEDS: Tamsulosin HCl 0.4 MG Capsule PO ×2 (08:33→20:38)
[2021-08-15] MEDS: Allopurinol 300 MG Tablet PO (08:53)
[2021-08-15] MEDS: Senna/Docusate Sodium 1 Tablet 2 TABLET PO (08:53)
--- NOTE | 2021-08-15 09:19 | PCM.PN.BLA ---
Progress Note Afebrile VSS Maintaining appropriate oxygen saturation on RA Oral intake is good Discussed with nursing - no problems that need addressed Reviewed the PT/OT notes Medication list reviewed. All lab was personally reviewed. Platelets are now within normal limits. White blood cell count is normal but the hemoglobin is down to 6.7 today and the MCV is 103.3. Electrolytes on the BMP are unremarkable. The BUN is 36 and the creatinine is stable at 1.28 today. Phosphorus and magnesium are now within normal limits. He denies chest pain, lightheadedness, shortness of breath at rest, abdominal pain, palpitations. His only complaint is that he is feeling cold for the past 2 days. Physical Exam Const alert and oriented x3 Constitutional Narrative: He is covered in blankets and c/o being cold. He is very pale. No diaphoresis. Resp clear to auscultation bilaterally Cardio regular rate, regular rhythm and no gallops Extremity no calf tenderness Extremity Narrative: He has pitting edema of both legs which is being controlled with compression wraps. Skin Wound Narrative: The incision is intact with no purulent DC, no jessi-incisional erythema and no increased warmth to touch. Psych affect normal Assessment & Plan Assessment/Plan (1) Physical debility: (2) Status post total right knee replacement: (3) Acute on chronic blood loss anemia: (4) Iron deficiency anemia due to chronic blood loss: (5) senior care current use 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: (6) Heme + stool: (7) History of atrial fibrillation: PLAN: 1. Transfuse 2 units of PRBC's and recheck a CBC in 2-3 days. No black tarry stool but he is hemoccult +. 2. Continue the iron infusions as ordered. 3. Must have therapy in the recliner until after the transfusions due to lightheadedness and increased risk of a fall Visit Charges Inpatient E&M: 56159 Subs Hosp L2
[2021-08-15] MEDS: Gabapentin 100 MG Capsule PO ×2 (09:57→20:38)
--- NOTE | 2021-08-15 10:16 | CASEMGMT ---
Social Work Received call from son, Severino, to inquire about DC plans. Explained Medicare approved 14 days with DC 08/22 and pt requesting transfer to [facility]. Son agreeable. Explained Medicare skilled benefit at SNF. Referral made to [facility]. Son appreciative of information. Will continue to follow. ANN StevensW
[2021-08-15] MEDS: 0.9% Normal Saline 1,000 ML 100 ML IV (12:05)
[2021-08-15] MEDS: 0.9% Saline Lock 10 ML Syringe IV ×2 (12:05→17:32)
--- NOTE | 2021-08-15 12:30 | NURSING ---
blood transfusion started at 120cc/hr. educated patient on allergic reactions to report.
--- NOTE | 2021-08-15 15:06 | NURSING ---
see previous vitals signs at 1430
[2021-08-15] MEDS: Rivaroxaban 20 MG Tablet PO (18:17)
[2021-08-15] MEDS: Atorvastatin Calcium 20 MG Tablet PO (20:38)
[2021-08-16] MEDS: Acetaminophen 500 MG Tablet 1000 MG PO ×3 (05:57→21:28)
[2021-08-16] MEDS: Nystatin Powder 15gm Bottle 1 APPLIC TOPICAL ×2 (05:58→21:29)
[2021-08-16 07:32] VITALS: BP 145/61; PULSE 60; RESP 18; TEMP 36.7; O2SAT 99
[2021-08-16] MEDS: Ascorbic Acid 500 MG Tablet PO (08:12)
[2021-08-16] MEDS: Gabapentin 100 MG Capsule PO ×2 (08:12→21:29)
[2021-08-16] MEDS: Carvedilol 6.25 MG Tablet PO ×2 (08:12→21:29)
[2021-08-16] MEDS: Allopurinol 300 MG Tablet PO (08:12)
[2021-08-16] MEDS: Tamsulosin HCl 0.4 MG Capsule PO ×2 (08:12→21:29)
[2021-08-16] MEDS: Furosemide 20 MG Tablet PO (08:12)
[2021-08-16] MEDS: Iron Polysaccharide Complex 150 MG CAPSULE PO (08:12)
[2021-08-16] MEDS: Famotidine 20 MG Tablet 40 MG PO (10:07)
[2021-08-16 14:02] VITALS: BMI 35.0
[2021-08-16] MEDS: Rivaroxaban 20 MG Tablet PO (16:22)
--- NOTE | 2021-08-16 16:52 | CHAPLAIN ---
Type of Pastoral Visit ___ Initial Visit _x__ Follow-up Visit ___ On-call Visit ___ General Patient Visit ___ Spiritual Assessment ___ Family Conference ___ Bereavement ___ Rapid Response ___ Code Blue ___ Other (describe below) Pastoral Care Referral From _x__ Patient ___ Family ___ Nurse ___ Physician ___ Research Leader ___ School Transportation Supervisor ___ Other (describe below) Sacrament/Intervention _x__ Active listening ___ Anointing ___ Jehovah'S Witness ___ Bereavement ___ Communion _x__ Maddie exploration ___ _x__ Life review _x__ Prayer ___ Reconciliation ___ Sacrament of Sick _x__ Supportive presence ___ Wedding ___ Other (describe below) Pastoral Comments patient did some life review, explanation of family and a request for prayer for personal need
[2021-08-16 20:41] VITALS: BP 138/63; PULSE 60; RESP 18; TEMP 36.6; O2SAT 98
[2021-08-16] MEDS: Senna/Docusate Sodium 1 Tablet 2 TABLET PO (21:28)
[2021-08-16] MEDS: Atorvastatin Calcium 20 MG Tablet PO (21:29)
[2021-08-17 05:00] VITALS: BMI 35.0
[2021-08-17] MEDS: Acetaminophen 500 MG Tablet 1000 MG PO ×3 (05:25→22:19)
[2021-08-17] MEDS: Nystatin Powder 15gm Bottle 1 APPLIC TOPICAL ×2 (05:25→22:22)
[2021-08-17 05:59] LABS: Hemoglobin 8.4 g/dL (13.0-16.5)
[2021-08-17] MEDS: Tamsulosin HCl 0.4 MG Capsule PO ×2 (07:53→22:19)
[2021-08-17] MEDS: Iron Polysaccharide Complex 150 MG CAPSULE PO (07:53)
[2021-08-17] MEDS: Allopurinol 300 MG Tablet PO (07:53)
[2021-08-17] MEDS: Gabapentin 100 MG Capsule PO ×2 (07:53→22:18)
[2021-08-17] MEDS: Ascorbic Acid 500 MG Tablet PO (07:53)
[2021-08-17] MEDS: oxyCODONE 5 MG Tablet PO ×2 (07:53→22:51)
[2021-08-17] MEDS: Famotidine 20 MG Tablet 40 MG PO (07:53)
[2021-08-17] MEDS: Furosemide 40 MG Tablet PO (07:54)
[2021-08-17] MEDS: Carvedilol 6.25 MG Tablet PO ×2 (07:55→22:18)
[2021-08-17] MEDS: Senna/Docusate Sodium 1 Tablet 2 TABLET PO (07:56)
[2021-08-17 08:34] VITALS: BP 130/64; PULSE 60; RESP 18; TEMP 37; O2SAT 95
[2021-08-17 13:21] VITALS: BMI 35.0
--- NOTE | 2021-08-17 14:25 | CASEMGMT ---
Social Work WVM can accept outpatient receptionist. Left message with son. [id number] completed. Jennifer Dhillon, SENIOR INVESTIGATOR BUSINESS CONSULTANT
--- NOTE | 2021-08-17 15:30 | PCM.PN.BLA ---
Progress Note Afebrile VSS-blood pressure is well controlled. Heart rate is still at 60 and this is likely completely paced. Maintaining appropriate oxygen saturation on RA Oral intake is good Discussed with nursing - no problems that need addressed Reviewed the PT/OT notes Medication list reviewed. All lab was personally reviewed. The hemoglobin today is 8.4, up from 6.7 on 08/15/2021 after transfusion of 2 units of packed red blood cells. Nick denies shortness of breath, palpitations, chest pain, lightheadedness, nausea/vomiting/abdominal pain, dysuria. He feels more energetic and his color is better since he had the blood transfusion. Physical Exam Const alert, oriented x3 and no apparent distress Constitutional Narrative: He has better color in his face today and he is not c/o being cold General Appearance: cooperative and comfortable Resp normal respiratory effort and clear to auscultation bilaterally Cardio regular rate and regular rhythm GI normal to inspection, nondistended, normoactive bowel sounds and soft to palpation Skin General Skin Exam: no breakdown Rashes: no rashes Wound Narrative: The incision is intact and has no jessi-incisional erythema and no DC Psych thought process normal, cooperative and affect normal Assessment & Plan Assessment/Plan (1) Heme + stool: (2) History of blood transfusion: (3) Iron deficiency anemia due to chronic blood loss: (4) Physical debility: (5) Chronic renal failure, stage 3a: PLAN: 1. Continue therapy 2. He has chronic blood loss and is chronically on a PPI - may need to have periodic iron transfusions as an OP. Visit Charges Inpatient E&M: 16362 Subs Hosp L2
[2021-08-17] MEDS: Rivaroxaban 20 MG Tablet PO (17:05)
[2021-08-17 22:00] VITALS: BP 133/69; PULSE 60; RESP 18; TEMP 36.8; O2SAT 97
[2021-08-17] MEDS: Atorvastatin Calcium 20 MG Tablet PO (22:19)
[2021-08-18 02:39] VITALS: BMI 35.0
--- NOTE | 2021-08-18 04:33 | NURSING ---
REVIEWED AND AGREE WITH BINDER OPERATOR'S FUNCTIONAL ASSESSMENT AND HANDOFF CHARTING.
[2021-08-18] MEDS: Acetaminophen 500 MG Tablet 1000 MG PO ×3 (06:19→21:08)
[2021-08-18] MEDS: Nystatin Powder 15gm Bottle 1 APPLIC TOPICAL ×2 (06:21→21:10)
[2021-08-18] MEDS: oxyCODONE 5 MG Tablet PO (06:41)
[2021-08-18 07:29] VITALS: BP 132/53; PULSE 60; RESP 18; TEMP 37.1; O2SAT 95
[2021-08-18] MEDS: Iron Polysaccharide Complex 150 MG CAPSULE PO (08:09)
[2021-08-18] MEDS: Ascorbic Acid 500 MG Tablet PO (08:10)
[2021-08-18] MEDS: Famotidine 20 MG Tablet 40 MG PO (08:10)
[2021-08-18] MEDS: Carvedilol 6.25 MG Tablet PO ×2 (08:10→21:08)
[2021-08-18] MEDS: Gabapentin 100 MG Capsule PO ×2 (08:10→20:22)
[2021-08-18] MEDS: Allopurinol 300 MG Tablet PO (08:10)
[2021-08-18] MEDS: Tamsulosin HCl 0.4 MG Capsule PO ×2 (08:10→21:08)
[2021-08-18] MEDS: Furosemide 20 MG Tablet PO (08:10)
[2021-08-18 10:56] VITALS: BMI 35.0
[2021-08-18] MEDS: Rivaroxaban 20 MG Tablet PO (17:20)
[2021-08-18 20:24] VITALS: BP 134/70; PULSE 60; RESP 16; TEMP 36.6; O2SAT 97
[2021-08-18] MEDS: Atorvastatin Calcium 20 MG Tablet PO (21:08)
[2021-08-18] MEDS: Senna/Docusate Sodium 1 Tablet 2 TABLET PO (21:08)
[2021-08-19 00:45] VITALS: BMI 35.0
[2021-08-19] MEDS: Acetaminophen 500 MG Tablet 1000 MG PO ×3 (05:42→20:53)
[2021-08-19] MEDS: Nystatin Powder 15gm Bottle 1 APPLIC TOPICAL ×2 (05:43→20:54)
[2021-08-19] MEDS: Gabapentin 100 MG Capsule PO ×2 (08:09→20:53)
[2021-08-19] MEDS: Iron Polysaccharide Complex 150 MG CAPSULE PO (08:09)
[2021-08-19] MEDS: Senna/Docusate Sodium 1 Tablet 2 TABLET PO (08:10)
[2021-08-19] MEDS: Famotidine 20 MG Tablet 40 MG PO (08:10)
[2021-08-19] MEDS: Furosemide 40 MG Tablet PO (08:10)
[2021-08-19] MEDS: Tamsulosin HCl 0.4 MG Capsule PO ×2 (08:10→20:53)
[2021-08-19] MEDS: Carvedilol 6.25 MG Tablet PO ×2 (08:10→20:53)
[2021-08-19] MEDS: oxyCODONE 5 MG Tablet PO (08:11)
[2021-08-19] MEDS: Ascorbic Acid 500 MG Tablet PO (08:13)
[2021-08-19] MEDS: Allopurinol 300 MG Tablet PO (08:13)
[2021-08-19 10:00] VITALS: BP 130/61; PULSE 60; RESP 16; TEMP 36.8; O2SAT 96
[2021-08-19 14:52] VITALS: BMI 35.0
[2021-08-19] MEDS: Rivaroxaban 20 MG Tablet PO (17:04)
[2021-08-19 20:30] VITALS: PULSE 61; RESP 16; O2SAT 98; BMI 35.0
[2021-08-19] MEDS: Atorvastatin Calcium 20 MG Tablet PO (20:52)
[2021-08-19 21:43] VITALS: BP 107/56; PULSE 61; RESP 16; TEMP 36.6; O2SAT 98
--- NOTE | 2021-08-20 01:35 | NURSING ---
Reviewed and agree with EQUINE INTERN documentation and assessment charting.
[2021-08-20] MEDS: Acetaminophen 500 MG Tablet 1000 MG PO ×3 (05:13→21:05)
[2021-08-20] MEDS: Nystatin Powder 15gm Bottle 1 APPLIC TOPICAL ×2 (05:14→21:05)
[2021-08-20 07:21] VITALS: BP 124/61; PULSE 60; RESP 16; TEMP 36.9; O2SAT 97
[2021-08-20] MEDS: oxyCODONE 5 MG Tablet PO ×2 (08:04→23:18)
[2021-08-20] MEDS: Iron Polysaccharide Complex 150 MG CAPSULE PO (08:05)
[2021-08-20] MEDS: Allopurinol 300 MG Tablet PO (08:05)
[2021-08-20] MEDS: Famotidine 20 MG Tablet 40 MG PO (08:05)
[2021-08-20] MEDS: Carvedilol 6.25 MG Tablet PO ×2 (08:05→21:05)
[2021-08-20] MEDS: Furosemide 20 MG Tablet PO (08:05)
[2021-08-20] MEDS: Gabapentin 100 MG Capsule PO ×2 (08:05→21:05)
[2021-08-20] MEDS: Ascorbic Acid 500 MG Tablet PO (08:07)
[2021-08-20] MEDS: Tamsulosin HCl 0.4 MG Capsule PO ×2 (08:07→21:05)
[2021-08-20 15:43] VITALS: BMI 35.0
[2021-08-20] MEDS: Rivaroxaban 20 MG Tablet PO (17:07)
[2021-08-20 19:28] VITALS: BP 150/57; PULSE 61; RESP 16; TEMP 37.1; O2SAT 99
[2021-08-20 21:00] VITALS: PULSE 61; RESP 16; O2SAT 99; BMI 35.0
[2021-08-20] MEDS: Atorvastatin Calcium 20 MG Tablet PO (21:02)
[2021-08-20] MEDS: Senna/Docusate Sodium 1 Tablet 2 TABLET PO (21:07)
--- NOTE | 2021-08-21 03:11 | NURSING ---
REVIEWED AND AGREE WITH COLLECTIONS DIRECTOR'S FUNCTIONAL ASSESSMENT AND HANDOFF CHARTING.
[2021-08-21 05:50] LABS: Hematocrit 27.3 % (40-54); Hemoglobin 8.1 g/dL (13.0-16.5); Mean Corp Hgb Conc 29.7 g/dL (32-36); Mean Corpuscular Volume 101.1 fL (80-94); Platelet Count 505 K/mm3 (150-450); RBC Distribution Width CV 15.2 % (11.6-14.6); RBC Distribution Width SD 56.1 fl (35.1-43.9); White Blood Count 4.6 K/mm3 (4.4-11.0)
[2021-08-21 06:34] LABS: Anion Gap 5 (5-15); BUN 32 mg/dL (7-18); BUN/Creat Ratio 25.8 RATIO (10-20); Calcium,Total 8.5 mg/dL (8.5-10.1); Chloride 103 mmol/L (98-107); Creatinine, Serum 1.24 mg/dL (0.70-1.30); EST Glomerular Filtration Rate 60 mL/min (>60); Est Glom Filt Rate - Afr Amer 72 mL/min (>60); Estimated Creatinine Clearance 49.88 ml/min; Glucose 95 mg/dL (74-106); Magnesium 2.1 mg/dL (1.6-2.6); Potassium 4.6 mmol/L (3.5-5.1); Sodium Level 139 mmol/L (136-145)
[2021-08-21] MEDS: Acetaminophen 500 MG Tablet 1000 MG PO ×3 (06:36→21:02)
[2021-08-21] MEDS: Nystatin Powder 15gm Bottle 1 APPLIC TOPICAL ×2 (06:37→21:02)
[2021-08-21 07:52] VITALS: BP 140/68; PULSE 60; RESP 16; TEMP 36.9; O2SAT 93
[2021-08-21] MEDS: Senna/Docusate Sodium 1 Tablet 2 TABLET PO ×2 (07:59→21:01)
[2021-08-21] MEDS: Ascorbic Acid 500 MG Tablet PO (07:59)
[2021-08-21] MEDS: Famotidine 20 MG Tablet 40 MG PO (07:59)
[2021-08-21] MEDS: Iron Polysaccharide Complex 150 MG CAPSULE PO (07:59)
[2021-08-21] MEDS: Gabapentin 100 MG Capsule PO ×2 (07:59→21:01)
[2021-08-21] MEDS: Allopurinol 300 MG Tablet PO (07:59)
[2021-08-21] MEDS: Tamsulosin HCl 0.4 MG Capsule PO ×2 (07:59→21:01)
[2021-08-21] MEDS: Carvedilol 6.25 MG Tablet PO ×2 (07:59→21:01)
[2021-08-21] MEDS: Furosemide 40 MG Tablet PO (07:59)
--- NOTE | 2021-08-21 10:45 | NURSING ---
spoke with Dr Forde office-ok to remove marina here. pt will f/u on dc
--- NOTE | 2021-08-21 10:54 | CASEMGMT ---
Social Work IDT met with patient and son via conference call for Team meeting. Discussed patient's progres in therapy and nursing. Pt to DC 08/22 to [facility] skilled. Son to transport. No issues noted. Jennifer Dhillon, PHARMACIST INTERN SHUTTLE TRUCK DRIVER
--- NOTE | 2021-08-21 11:05 | NURSING ---
32 marina and 4 sutures removed. Incision well approximated. No S/S infections. pt tolerated well.
--- NOTE | 2021-08-21 12:01 | PCM.DC.SUM ---
Providers Date of Admission: 08/08/21 Primary Care Physician: Dr. 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 Code(s): D50.0 - Iron deficiency anemia secondary to blood loss (chronic) (4) Physical debility: Status: Acute Code(s): R53.81 - Other malaise (5) Chronic renal failure, stage 3a: Status: Acute Code(s): N18.31 - Chronic kidney disease, stage 3a Medications at Discharge Home Medications allopurinol 300 mg PO DAILY 09/20/17 tamsulosin 0.4 mg PO BID 09/20/17 gabapentin 100 mg capsule 100 mg PO QHS 01/18/21 Xarelto 20 mg PO DAILY 06/07/21 polysaccharide iron complex [iFerex 150] 150 mg PO DAILY 07/21/21 famotidine 40 mg tablet 40 mg PO DAILY 07/26/21 furosemide 20 mg tablet 20 mg PO QODAY tab 07/26/21 acetaminophen 1,000 mg PO Q8 08/08/21 atorvastatin 20 mg PO QHS 08/08/21 carvedilol 6.25 mg PO BID 08/08/21 oxycodone 5 - 10 mg PO Q4H PRN PRN 3 Days #18 tab 08/21/21 sennosides-docusate sodium [Stool Softener-Stimulant Laxat] 2 tab PO BID #0 tab 08/21/21 Hospital Course Operations total knee replacement (Right.) Procedures None Summary of Care Provided Minutes Spent on Discharge: 35 Hospital Course: 81 year old male with below past medical history underwent right total knee replacement 08/07/[address] Talavera, admitted to with debility, here for greater than 3 hours of rehabilitation, strengthening, prior to discharge home with . Discharge to [facility] 08/22/2021, PT/OT. Physical Exam Const alert and oriented x3 General Appearance: cooperative HEENT normocephalic Eyes PERRL and EOMs intact bilaterally Neck supple, no JVD and no carotid bruits Resp normal respiratory effort, normal air movement and clear to auscultation bilaterally Cardio regular rate and regular rhythm GI normal to inspection, nondistended, normoactive bowel sounds, non-tender and non-distended Extremity normal capillary refill General Extremity: Negative for edema Skin no rashes or lesions noted General Skin Exam: no breakdown Psych affect normal Appearance: appropriate Weight / BMI Weight Weight: 110.7 kg Body Mass Index (BMI) 35.0 ABG / Lab / Microbiology Data Result Diagrams: 08/21/21 05:28 08/21/21 05:28 Laboratory: Laboratory Results - last 24 hr 08/21/21 05:28: WBC 4.6, RBC 2.70 L, Hgb 8.1 L, Hct 27.3 L, MCV 101.1 H, MCH 30.0, MCHC 29.7 L, RDW Std Deviation 56.1 H, RDW Coeff of Jesús 15.2 H, Plt Count 505 H, MPV 9.0 08/21/21 05:28: Sodium 139, Potassium 4.6, Chloride 103, Carbon Dioxide 31.0, Anion Gap 5, BUN 32 H, Creatinine 1.24, Estim Creat Clear Calc 49.88, Est GFR (MDRD) Af Amer 72, Est GFR (MDRD) Non-Af 60, BUN/Creatinine Ratio 25.8 H, Glucose 95, Calcium 8.5, Magnesium 2.1 Microbiology: Microbiology 08/21/21 06:40 Nasal Secretion SARS-CoV-2 Antigen (Rapid) - Final 08/12/21 08:08 Stool Stool Occult Blood (SAMARIA) - Final Occult Blood Positive D/C Instructions Discharge Diet: No restrictions Discharge Activity: Return to Normal Activity, May Shower and Use Walker Weight Bearing Status: Weight bearing as tolerated Call your doctor if you observe: Fever of 101 or Higher, Inability to urinate, Inability to have a bowel movement, Shortness of breath, Dizziness, Fainting spells, Swelling in the ankles, Chest pain, Increased palpitations (irregular heartbeat) and Uncontrolled pain Additional Instructions: Discharge to [facility] 08/22/2021, PT/OT. Please Follow Up With: Tino Gordon PA-C When: As scheduled. Meaningful Use Info Meaningful Use Diagnoses (Choose all that apply): None applicable Discharge Plan Admission Admit Date/Time: 08/08/21 15:55 Primary Reason for Your Visit: Debility. Attending Provider: Allison Damon Primary Care Provider: Richard Morley Chi Instructions Additional Instructions / Restrictions: Discharge to [facility] 08/22/2021, PT/OT. Discharge Orders/Prescriptions Prescriptions: New sennosides-docusate sodium [Stool Softener-Stimulant Laxat] 8.6-50 mg Tablet 2 tab PO BID Qty: 0 RF: 0 Continued famotidine 40 mg tablet 40 mg PO DAILY RF: 0 tamsulosin 0.4 MG capsule 0.4 mg PO BID RF: 0 allopurinol 300 MG tablet 300 mg PO DAILY RF: 0 polysaccharide iron complex [iFerex 150] 150 mg iron capsule 150 mg PO DAILY RF: 0 furosemide [Lasix] 20 mg tablet 20 mg PO QODAY RF: 0 Xarelto 20 mg tablet 20 mg PO DAILY RF: 0 carvedilol 6.25 mg tablet 6.25 mg PO BID RF: 0 atorvastatin 20 mg tablet 20 mg PO QHS RF: 0 acetaminophen 500 mg tablet 1,000 mg PO Q8 RF: 0 oxycodone 5 mg tablet 5 - 10 mg PO Q4H PRN PRN (Reason: Pain) 3 Days Qty: 18 RF: 0 gabapentin 100 mg capsule 100 mg PO QHS RF: 0 Referrals / Follow Up: Richard Morley Chi, MD [Primary Care Provider] - Disposition Disposition (needs filled in before D/C Order can be placed): Long Term Facility
--- NOTE | 2021-08-21 12:10 | TREXTCAR_ITS ---
Diet 08/09/21 14:12 Diet: Cardiac - Heart Healthy Food consistency:: Regular Liquid Consistency:: Regular/Thin Routine Orders/Code Status Suppository Type: Dulcolax 10mg Suppository Frequency: Daily PRN Code Status: Full Code Wound(s) rt knee: Wound Type: Surgical Incision rt villar: Wound Type: Surgical Incision back: Wound Type: mole rt lateral knee: Wound Type: blister R INNER FA: Wound Type: Skin Tear rt fore arm: Wound Type: Skin Tear Therapies Weight Bearing: Weight bearing as tolerated Extremity Affected:: Bilateral Lower Physical Therapy: Eval and Treat Occupational Therapy: Eval and Treat Problem/Diagnosis (1) Heme + stool: Status: Acute (2) History of blood transfusion: Status: Acute Comment: 2 units on 01/15/21 for a HGB of 6.7 (3) 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 ONS not needed at this time. Consult RD as needed. Follow Up Care Please Follow Up With: Tino Gordon PA-C Discharge Plan Admission Admit Date/Time: 08/08/21 15:55 Primary Reason for Your Visit: Debility. Attending Provider: Allison Damon Primary Care Provider: Richard Morley Chi Instructions Additional Instructions / Restrictions: Discharge to [facility] 08/22/2021, PT/OT. Discharge Orders/Prescriptions Prescriptions: New sennosides-docusate sodium [Stool Softener-Stimulant Laxat] 8.6-50 mg Tablet 2 tab PO BID Qty: 0 RF: 0 Continued famotidine 40 mg tablet 40 mg PO DAILY RF: 0 tamsulosin 0.4 MG capsule 0.4 mg PO BID RF: 0 allopurinol 300 MG tablet 300 mg PO DAILY RF: 0 polysaccharide iron complex [iFerex 150] 150 mg iron capsule 150 mg PO DAILY RF: 0 furosemide [Lasix] 20 mg tablet 20 mg PO QODAY RF: 0 Xarelto 20 mg tablet 20 mg PO DAILY RF: 0 carvedilol 6.25 mg tablet 6.25 mg PO BID RF: 0 atorvastatin 20 mg tablet 20 mg PO QHS RF: 0 acetaminophen 500 mg tablet 1,000 mg PO Q8 RF: 0 oxycodone 5 mg tablet 5 - 10 mg PO Q4H PRN PRN (Reason: Pain) 3 Days Qty: 18 RF: 0 gabapentin 100 mg capsule 100 mg PO QHS RF: 0 Referrals / Follow Up: Richard Morley Chi, MD [Primary Care Provider] - Disposition Disposition (needs filled in before D/C Order can be placed): Nursing Home Facility
[2021-08-21 14:01] VITALS: BMI 35.0
[2021-08-21] MEDS: Rivaroxaban 20 MG Tablet PO (17:25)
[2021-08-21 19:34] VITALS: BP 139/61; PULSE 60; RESP 16; TEMP 36.6; O2SAT 97
[2021-08-21 20:46] VITALS: PULSE 60; RESP 16; BMI 35.0
[2021-08-21] MEDS: Atorvastatin Calcium 20 MG Tablet PO (21:01)
[2021-08-22] MEDS: oxyCODONE 5 MG Tablet PO (00:59)
[2021-08-22] MEDS: Acetaminophen 500 MG Tablet 1000 MG PO ×2 (06:13→13:04)
[2021-08-22] MEDS: Nystatin Powder 15gm Bottle 1 APPLIC TOPICAL (06:13)
[2021-08-22 07:30] VITALS: BP 126/56; PULSE 64; RESP 16; TEMP 36.9; O2SAT 97
[2021-08-22] MEDS: Gabapentin 100 MG Capsule PO (08:08)
[2021-08-22] MEDS: Tamsulosin HCl 0.4 MG Capsule PO (08:08)
[2021-08-22] MEDS: Iron Polysaccharide Complex 150 MG CAPSULE PO (08:08)
[2021-08-22] MEDS: Ascorbic Acid 500 MG Tablet PO (08:08)
[2021-08-22] MEDS: Famotidine 20 MG Tablet 40 MG PO (08:08)
[2021-08-22] MEDS: Carvedilol 6.25 MG Tablet PO (08:08)
[2021-08-22] MEDS: Allopurinol 300 MG Tablet PO (08:08)
[2021-08-22] MEDS: Furosemide 20 MG Tablet PO (08:08)
--- NOTE | 2021-08-22 10:17 | PCM.PN.BLA ---
Progress Note Afebrile VSS-blood pressures well controlled Maintaining appropriate oxygen saturation on RA I do not feel the oral intakes recorded are correct. He generally has good intake and it was poor for the past few days. Discussed with nursing - no problems that need addressed Reviewed the PT/OT notes Medication list reviewed. All lab was personally reviewed. The hemoglobin yesterday was 8.1, down from 8.4 on 08/17/2021. Platelet count is increased at 505,000. Creatinine is stable at 1.24. The BUN is thirty-two.
--- NOTE | 2021-08-22 11:21 | TREXTCAR_ITS ---
Diet 08/09/21 14:12 Diet: Cardiac - Heart Healthy Food consistency:: Regular Liquid Consistency:: Regular/Thin Routine Orders/Code Status Enema Type: Fleetz Enema Frequency: Daily PRN Suppository Type: Dulcolax 10mg Suppository Frequency: Daily PRN Change Rodríguez Catheter: N/A O2 Liters per Minute: 1-2 O2 Frequency: PRN Keep PO Greater than or Equal to (%): 90 Routine Lab Work: CBC (in 1 week) and BMP (in 1 week) Code Status: Full Code Wound(s) rt knee: Wound Type: Surgical Incision rt villar: Wound Type: Surgical Incision back: Wound Type: mole rt lateral knee: Wound Type: blister R INNER FA: Wound Type: Skin Tear rt fore arm: Wound Type: Skin Tear Suggestions for Active Care Times a day to sit in chair: 3 Therapies Weight Bearing: Weight bearing as tolerated Extremity Affected:: Bilateral Lower Physical Therapy: Eval and Treat Occupational Therapy: Eval and Treat Problem/Diagnosis (1) Physical debility: Status: Acute (2) Status post total right knee replacement: Status: Acute Comment: 08/07/[address] 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: Status: Chronic Comment: Xarelto for PAF (8) Chronic renal failure, stage 3a: Status: Chronic (9) Osteoarthritis: Status: Chronic (10) BPH (benign prostatic hyperplasia): Status: Chronic (11) Atherosclerotic heart disease of [place] coronary artery without angina pectoris: Status: Chronic Comment: Non obstructive coronary arteries (12) Biventricular automatic implantable cardioverter defibrillator in situ: Status: Chronic Comment: Original dual chamber pacemaker placed 01/22/2011 @ [facility]; upgrade to biventricular pacemaker/defibrillator on 07/14/2012 @ [facility] (13) Dilated cardiomyopathy: Status: Chronic Comment: EF in Dec was 60%. The EF was 40% in 2012 (14) High cholesterol: Status: Chronic (15) Gout: Status: Chronic (16) GERD (gastroesophageal reflux disease): Status: Chronic (17) Essential hypertension: Status: Chronic (18) Acute on chronic blood loss anemia: Status: Acute Comment: due to blood loss from TKA Allergies/Procedures Done in Hospital Allergies No Known Allergies Allergy (Verified 08/07/21 08:17) Procedures: None Type of Care/Length of Stay Estimated LOS: Convalescent Care Less Than 30 days Type of Care Needed: Skilled Rehab Potential: Good Prognosis: Good Additional Orders/Day of Discharge Day of Discharge: 08/22/21 Dietary and Speech Recommendations Dietitian Recommendations/Changes: Will change diet to Cardiac. ONS not needed at this time. Consult RD as needed. Follow Up Care Please Follow Up With: Tino Gordon PA-C Discharge Plan Admission Admit Date/Time: 08/08/21 15:55 Primary Reason for Your Visit: Debility due to OA with TKA Attending Provider: Allison Damon Primary Care Provider: Richard Morley Chi Instructions Additional Instructions / Restrictions: Discharge to [facility] 08/22/2021, PT/OT. Discharge Orders/Prescriptions Prescriptions: New sennosides-docusate sodium [Stool Softener-Stimulant Laxat] 8.6-50 mg Tablet 2 tab PO BID Qty: 0 RF: 0 ascorbic acid (vitamin C) 500 mg Tablet 500 mg PO 0800 Qty: 1 RF: 0 Continued famotidine 40 mg tablet 40 mg PO DAILY RF: 0 tamsulosin 0.4 MG capsule 0.4 mg PO BID RF: 0 allopurinol 300 MG tablet 300 mg PO DAILY RF: 0 polysaccharide iron complex [iFerex 150] 150 mg iron capsule 150 mg PO DAILY RF: 0 furosemide [Lasix] 20 mg tablet 20 mg PO QODAY RF: 0 Xarelto 20 mg tablet 20 mg PO DAILY RF: 0 carvedilol 6.25 mg tablet 6.25 mg PO BID RF: 0 atorvastatin 20 mg tablet 20 mg PO QHS RF: 0 acetaminophen 500 mg tablet 1,000 mg PO Q8 RF: 0 oxycodone 5 mg tablet 5 - 10 mg PO Q4H PRN PRN (Reason: Pain) 3 Days Qty: 18 RF: 0 gabapentin 100 mg capsule 100 mg PO QHS RF: 0 Referrals / Follow Up: Richard Morley Chi, MD [Primary Care Provider] - Disposition Disposition (needs filled in before D/C Order can be placed): [facility]
[2021-08-22 12:10] VITALS: BP 126/56; PULSE 58; RESP 16; TEMP 36.9; O2SAT 97
[2021-08-22] MEDS: Cyanocobalamin (B12) 1,000 MCG/ML Vial 1000 MCG SC (12:56)
--- NOTE | 2021-08-22 13:21 | NURSING ---
Discharged to [facility] Via family transport. report called to Liz.
== END 2021-08-22 13:27 | disposition skilled nursing facility (03) | DRG 470 ==
PROVIDERS: Admitting Provider Internal Medicine; PCP Family Medicine Geriatric Medicine; Visit Provider Internal Medicine
DX: Z47.1 Aftercare following joint replacement surgery (principal); I42.0 Dilated cardiomyopathy; D62 Acute posthemorrhagic anemia; Z96.651 Presence of right artificial knee joint; I25.10 Atherosclerotic heart disease of native coronary artery without angina pectoris; E78.5 Hyperlipidemia, unspecified; I12.9 Hypertensive chronic kidney disease with stage 1 through stage 4 chronic kidney disease, or unspecified chronic kidney disease; I48.0 Paroxysmal atrial fibrillation; N18.31 Chronic kidney disease, stage 3a; M10.9 Gout, unspecified; N40.0 Benign prostatic hyperplasia without lower urinary tract symptoms; G47.33 Obstructive sleep apnea (adult) (pediatric); E66.9 Obesity, unspecified; M17.11 Unilateral primary osteoarthritis, right knee; D50.9 Iron deficiency anemia, unspecified; K21.9 Gastro-esophageal reflux disease without esophagitis; K44.9 Diaphragmatic hernia without obstruction or gangrene; Z95.810 Presence of automatic (implantable) cardiac defibrillator; Z79.01 Long term (current) use 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s; Z87.891 Personal history of nicotine dependence; Z79.899 Other long term (current) drug therapy; Z68.35 Body mass index [BMI] 35.0-35.9, adult
CPT/HCPCS: 36415; 73560; 80048; 82274; 82962; 83735; 84100; 85018; 85025; 85027; 86850; 86900; 86901; 86920; 86922; 87426; 88305; 88311; 96365; 96366; 97110; 97116; 97162; 97166; 97530; 97535; 97802; 99218; 99251; C1776; J7030; J7050; J7120; P9016; A4216; G0378; G0463; J2405; J2916; J3420

== ENCOUNTER 2021-10-24 20:34 | Emergency (ER) | payer MEDICARE, OTHER, SELFPAY ==
[2021-10-24 20:36] VITALS: BP 170/71; PULSE 60; RESP 16; TEMP 38.4; O2SAT 94; BMI 33.7
--- NOTE | 2021-10-24 21:51 | RAD_ITS ---
INDICATION: cough EXAMINATION/TECHNIQUE: X-RAY - XR Chest 1 View COMPARISON: 09/18/2017 chest x-ray FINDINGS: LINES/DEVICES: None. Cardiac pacing device projects over the left chest with 3 leads projecting over the heart. LUNGS: Symmetric normal lung volumes. No airspace opacity or abnormal interstitial pattern. No nodule or mass. No pleural effusion or pneumothorax. MEDIASTINUM AND CARDIOVASCULAR STRUCTURES: Normal size and contour of the cardiomediastinal silhouette. No evidence of pulmonary vascular congestion. BONES AND SOFT TISSUES: Bilateral curvature, convex left, lower thoracic spine likely degenerative. No vertebral body height loss. Degenerative changes bilateral glenohumeral joints. RAD/Chest 1 View (Portable) IMPRESSION: 1. No radiographic evidence of acute cardiopulmonary disease. Electronically Signed: Forrest Payna DO at 22:43 EST Tel , Service support ,
[2021-10-24] MEDS: Acetaminophen 500 MG Tablet 1000 MG PO (22:02)
[2021-10-24 22:07] VITALS: TEMP 38.5
--- NOTE | 2021-10-24 22:37 | EX.ED.DYSGE1 ---
HPI History of Present Illness Chief Complaint: Fever Narrative Narrative: 81-year-old male presenting with fever, chills, myalgias which started today. He states he had not been home most of the day and does not know if he had a fever but he did have a headache. He does not have any nausea or vomiting. He denies chest pain or shortness of breath. He states he had to have his Covid vaccine so far it is scheduled to get his 3rd booster shot with Dr. Morley next month. Patient states he has no known sick contacts. [facility] Medical History Ambulates with cane Anemia Arthritis Atherosclerotic heart disease of [place] coronary artery without angina pectoris Back pain Biventricular automatic implantable cardioverter defibrillator in situ BPH (benign prostatic hyperplasia) Bruising Cancer Cardiology follow-up encounter Chronic renal failure, stage 3a Dilated cardiomyopathy Essential hypertension Former smoker Gastric reflux GERD (gastroesophageal reflux disease) Gout Hiatal hernia High cholesterol History of atrial fibrillation History of cardiac pacemaker History of echocardiogram History of edema History of IBS History of renal disease History of stress test History of stroke History of wrist fracture Hx of renal calculi Hyperlipidemia Hypertension Iron deficiency anemia Left bundle branch block 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 Osteoarthritis Paroxysmal atrial fibrillation Premature ventricular contraction Preoperative cardiovascular examination Shortness of breath on exertion Sick sinus syndrome Sleep apnea Stroke/cerebrovascular accident Testicular cancer Wears dentures Wears glasses Home Medications allopurinol 300 mg PO DAILY 09/20/17 [History Last Taken 08/06/21] tamsulosin 0.4 mg PO BID 09/20/17 [History Last Taken 08/06/21] gabapentin 100 mg capsule 100 mg PO QHS 01/18/21 [History Last Taken 08/06/21] Xarelto 20 mg PO DAILY 06/07/21 [History Last Taken 08/08/21 14:00] polysaccharide iron complex [iFerex 150] 150 mg PO DAILY 07/21/21 [History Last Taken 08/06/21] famotidine 40 mg tablet 40 mg PO DAILY 07/26/21 [History Last Taken 08/06/21] furosemide 20 mg tablet 20 mg PO QODAY tab 07/26/21 [History Last Taken 08/08/21 10:00] acetaminophen 1,000 mg PO Q8 08/08/21 [History Last Taken 08/08/21 14:00] atorvastatin 20 mg PO QHS 08/08/21 [History Last Taken Unknown] carvedilol 6.25 mg PO BID 08/08/21 [History Last Taken Unknown] oxycodone 5 - 10 mg PO Q4H PRN PRN 3 Days #18 tab 08/21/21 [Rx Last Taken Unknown] sennosides-docusate sodium [Stool Softener-Stimulant Laxat] 2 tab PO BID #0 tab 08/21/21 [Rx Last Taken Unknown] ascorbic acid (vitamin C) 500 mg PO 0800 #1 tab 08/22/21 [Rx Last Taken Unknown] Allergy/AdvReac Type Severity Reaction Status Date / Time No Known Allergies Allergy Verified 10/24/21 20:36 Family History Father , Age 59, gallbladder complications No problems noted. Mother , Age 85 No problems noted. Brother , Age 68 Cancer Brother CVA (cerebral vascular accident) seizure disorder post fall injury Surgical History History of appendectomy History of bunionectomy History of cardiac catheterization History of left heart catheterization History of testicular surgery Hx of colonoscopy S/P cataract surgery Status post total right knee replacement Social History Smoking Status: Former smoker quit date: 11/25/94 ROS ROS ED Constitutional Constitutional ED: Reports chills and fever(s) Eyes Eyes: Denies blurry vision or diplopia ENT ENT ED: Reports rhinorrhea; Denies sore throat Respiratory/Chest Respiratory/Chest: Reports cough; Denies dyspnea Gastrointestinal Gastrointestinal: Denies abdominal pain, constipation, diarrhea, nausea or vomiting Genitourinary Genitourinary ED: Denies dysuria or hematuria Musculoskeletal Musculoskeletal: Reports myalgias; Denies arthralgias, back pain or neck pain Integumentary Denies Abrasions or rash Neurologic Neurologic: Reports headache(s); Denies paresthesias or weakness EXAM Physical Exam Const Vital Signs: 10/24/21 20:36 10/24/21 22:07 Temperature 101.1 F H 101.3 F H Temperature Source Temporal Oral Pulse Rate 60 Respiratory Rate 16 Blood Pressure 170/71 H Blood Pressure Mean 104 Pulse Ox 94 Oxygen Delivery Method Room Air Positive well nourished General Appearance ED: NAD; Negative for pallor HEENT Reports moist mucous membranes Negative for trauma Eyes PERRL and EOMs intact bilaterally Resp normal respiratory effort and clear to auscultation bilaterally Cardio regular rate and regular rhythm Neuro oriented x3, CN's II-XII intact bilaterally and no sensory deficits noted Sensorium / Orientation: alert Motor Exam: strength 5/5 throughout Psych mental status grossly normal Skin General Skin Exam: Negative for jaundice or pallor MDM MDM MDM Narrative Medical decision making narrative: Patient is positive for COVID-19 today. Should be day one of his symptoms. I did obtain a chest x-ray and this is normal and shows no acute cardiopulmonary process on my interpretation. The radiologist does agree. Patient was given Tylenol for his fever. Other than fever and headache with cough and chills he does not have any severe complaints. Patient will be referred for monoclonal antibodies. Impression: 1. COVID-19 Radiography Diagnostic Testing: Clinical Impression(s) from Imaging Studies Chest X-Ray 10/24/21 21:51 IMPRESSION: 1. No radiographic evidence of acute cardiopulmonary disease. Electronically Signed: Forrest Payan DO at 22:43 EST Tel , Service support , Discharge Plan Triage Chief Complaint: Fever ED Provider: Charlie Roque Dx/Rx/DC Orders Instructions: Coronavirus Disease 2019 (COVID-19): Caring for Yourself or Others Prescriptions: No Action famotidine 40 mg tablet 40 mg PO DAILY RF: 0 tamsulosin 0.4 MG capsule 0.4 mg PO BID RF: 0 allopurinol 300 MG tablet 300 mg PO DAILY RF: 0 polysaccharide iron complex [iFerex 150] 150 mg iron capsule 150 mg PO DAILY RF: 0 furosemide [Lasix] 20 mg tablet 20 mg PO QODAY RF: 0 Xarelto 20 mg tablet 20 mg PO DAILY RF: 0 carvedilol 6.25 mg tablet 6.25 mg PO BID RF: 0 atorvastatin 20 mg tablet 20 mg PO QHS RF: 0 acetaminophen 500 mg tablet 1,000 mg PO Q8 RF: 0 sennosides-docusate sodium [Stool Softener-Stimulant Laxat] 8.6-50 mg Tablet 2 tab PO BID Qty: 0 RF: 0 oxycodone 5 mg tablet 5 - 10 mg PO Q4H PRN PRN (Reason: Pain) 3 Days Qty: 18 RF: 0 ascorbic acid (vitamin C) 500 mg Tablet 500 mg PO 0800 Qty: 1 RF: 0 gabapentin 100 mg capsule 100 mg PO QHS RF: 0 Other Ambulatory Orders: COVID Outpatient Monoclonal Antibody Referral (Routine) Timeframe: 1 Day Facility: [facility] - Location: [facility] Ordered By: Dr. Charlie Roque Primary Care Provider: Richard Morley Chi Referrals: Richard Morley Chi, MD [Primary Care Provider] - Disposition Disposition: Home, Self Care
[2021-10-24 23:23] VITALS: BP 165/70; PULSE 65; RESP 16; O2SAT 96
== END 2021-10-24 23:24 | disposition home or self-care (01) ==
PROVIDERS: Emergency Provider Student in an Organized Health Care Education/Training Program; PCP Family Medicine Geriatric Medicine
DX: U07.1 COVID-19 (principal); D50.9 Iron deficiency anemia, unspecified; E78.00 Pure hypercholesterolemia, unspecified; E78.5 Hyperlipidemia, unspecified; G47.30 Sleep apnea, unspecified; I12.9 Hypertensive chronic kidney disease with stage 1 through stage 4 chronic kidney disease, or unspecified chronic kidney disease; I25.10 Atherosclerotic heart disease of native coronary artery without angina pectoris; I48.0 Paroxysmal atrial fibrillation; K21.9 Gastro-esophageal reflux disease without esophagitis; N18.31 Chronic kidney disease, stage 3a; N40.0 Benign prostatic hyperplasia without lower urinary tract symptoms; M10.9 Gout, unspecified; M19.90 Unspecified osteoarthritis, unspecified site; K58.9 Irritable bowel syndrome, unspecified; Z79.01 Long term (current) use 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s; Z86.73 Personal history of transient ischemic attack (TIA), and cerebral infarction without residual deficits; Z87.442 Personal history of urinary calculi; Z87.891 Personal history of nicotine dependence; Z95.0 Presence of cardiac pacemaker
CPT/HCPCS: 71045; 87426; 99283

== ENCOUNTER 2021-10-25 17:19 | Outpatient (CLI) | payer MEDICARE, OTHER, SELFPAY ==
[2021-10-25 17:39] VITALS: BP 180/79; PULSE 59; RESP 18; TEMP 37.1; O2SAT 94; BMI 34.4
[2021-10-25] MEDS: 0.9% Saline Lock 10 ML Syringe IV (17:48)
[2021-10-25 18:45] VITALS: BP 179/80; PULSE 59; RESP 16; TEMP 37.3; O2SAT 94
[2021-10-25 19:35] VITALS: BP 169/70; PULSE 59; RESP 16; TEMP 37.6; O2SAT 96
== END 2021-10-25 19:35 | disposition home or self-care (01) ==
LOC: MS3OUT 17:20 → MS3 17:20
PROVIDERS: PCP Family Medicine Geriatric Medicine; Referring Provider Nurse Practitioner Adult Health; Visit Provider Nurse Practitioner Adult Health
DX: Z23 Encounter for immunization (principal); U07.1 COVID-19
CPT/HCPCS: J7050; M0245; Q0245; A4216

== ENCOUNTER → 2021-11-06 10:23 | Outpatient (CLI) | payer MEDICARE, OTHER, SELFPAY ==
[2021-11-06 12:41] LABS: Absolute Lymphocyte Count 0.86 X10^3/uL (0.83-4.51); Absolute Neutrophil Count 3.5 X10^3/uL (2.0-7.7); Basophil# 0.03 X10^3/uL; Basophil% 0.6 % (0-1); Eosinophil# 0.13 X10^3/uL; Eosinophils% 2.5 % (0-5); Hematocrit 36.3 % (40-54); Hemoglobin 11.3 g/dL (13.0-16.5); Lymphocyte # 0.86 X10^3/ul (0.83-4.51); Lymphocyte % 16.5 % (19-41); Mean Corp Hgb Conc 31.1 g/dL (32-36); Mean Corpuscular Hgb 30.1 pg (27.0-32.0); Mean Corpuscular Volume 96.5 fL (80-94); Mean Platelet Vol. 10.3 fl (6.2-12.0); Monocyte# 0.63 X10^3/uL; Monocyte% 12.1 % (0-10); NRBC Flagged by Analyzer 0 % (0-5); Neutrophil # 3.54 X10^3/uL (2.7-7.7); Neutrophil % 68.1 % (47-70); Platelet Count 331 K/mm3 (150-450); RBC Distribution Width CV 13.9 % (11.6-14.6); RBC Distribution Width SD 49.6 fl (35.1-43.9); Red Blood Count 3.76 M/mm3 (4.6-6.2); White Blood Count 5.2 K/mm3 (4.4-11.0)
[2021-11-06 12:55] LABS: Vitamin D,25 Hydroxy 30.8 ng/mL
[2021-11-06 13:36] LABS: ALB/GLOB Ratio 0.9 RATIO (0.9-2.4); AST(SGOT) 20 U/L (15-37); Alanine Aminotransfer ALT/SGPT 19 U/L (16-61); Albumin, Serum 3.4 g/dL (3.2-5.0); Alkaline Phosphatase 99 U/L (45-117); Anion Gap 8 (5-15); BUN 26 mg/dL (7-18); BUN/Creat Ratio 18.8 RATIO (10-20); Calcium,Total 8.9 mg/dL (8.5-10.1); Chloride 104 mmol/L (98-107); Creatinine, Serum 1.38 mg/dL (0.70-1.30); EST Glomerular Filtration Rate 53 mL/min (>60); Est Glom Filt Rate - Afr Amer 64 mL/min (>60); Globulin 3.6 g/dL (2.2-4.2); Glucose 92 mg/dL (74-106); Sodium Level 138 mmol/L (136-145); Uric Acid 4.9 mg/dL (3.5-7.2)
== END ==
PROVIDERS: PCP Family Medicine Geriatric Medicine; Visit Provider Family Medicine Geriatric Medicine
DX: I10 Essential (primary) hypertension (principal); E55.9 Vitamin D deficiency, unspecified; M10.9 Gout, unspecified
CPT/HCPCS: 36415; 80053; 82306; 84443; 84550; 85025

== ENCOUNTER 2021-12-05 10:32 | Outpatient (CLI) | payer MEDICARE, OTHER, SELFPAY ==
[2021-12-05 12:44] LABS: Hemoglobin 10.6 g/dL (13.0-16.5); Mean Corp Hgb Conc 30.3 g/dL (32-36); Mean Corpuscular Hgb 30.2 pg (27.0-32.0); Mean Corpuscular Volume 99.7 fL (80-94); Mean Platelet Vol. 10.5 fl (6.2-12.0); Platelet Count 242 K/mm3 (150-450); RBC Distribution Width CV 14.6 % (11.6-14.6); RBC Distribution Width SD 52.9 fl (35.1-43.9); Red Blood Count 3.51 M/mm3 (4.6-6.2); White Blood Count 4.4 K/mm3 (4.4-11.0)
[2021-12-05 13:22] LABS: Albumin, Serum 3.3 g/dL (3.2-5.0); BUN 25 mg/dL (7-18); BUN/Creat Ratio 17.4 RATIO (10-20); Chloride 108 mmol/L (98-107); Creatinine, Serum 1.44 mg/dL (0.70-1.30); EST Glomerular Filtration Rate 50 mL/min (>60); Est Glom Filt Rate - Afr Amer 61 mL/min (>60); Glucose 81 mg/dL (74-106); Phosphorus 2.8 mg/dL (2.5-4.9); Potassium 4.3 mmol/L (3.5-5.1); Sodium Level 142 mmol/L (136-145)
== END 2021-12-05 23:59 | disposition short-term general hospital (02) ==
LOC: LAB 10:36
PROVIDERS: PCP Family Medicine Geriatric Medicine; Referring Provider Internal Medicine Nephrology; Visit Provider Internal Medicine Nephrology
DX: N17.9 Acute kidney failure, unspecified (principal)
CPT/HCPCS: 36415; 80069; 85027

== ENCOUNTER 2022-02-14 16:57 | Outpatient (CLI) | payer MEDICARE, OTHER, SELFPAY ==
[2022-02-14 17:35] LABS: Absolute Neutrophil Count 1.5 X10^3/uL (2.0-7.7); Basophil# 0.03 X10^3/uL; Basophil% 0.9 % (0-1); Eosinophil# 0.17 X10^3/uL; Eosinophils% 5.1 % (0-5); Hematocrit 33.7 % (40-54); Lymphocyte % 36.3 % (19-41); Mean Corp Hgb Conc 32.6 g/dL (32-36); Mean Corpuscular Hgb 31.3 pg (27.0-32.0); Mean Platelet Vol. 10.2 fl (6.2-12.0); Monocyte# 0.42 X10^3/uL; Monocyte% 12.7 % (0-10); NRBC Flagged by Analyzer 0 % (0-5); Neutrophil # 1.48 X10^3/uL (2.7-7.7); Neutrophil % 44.7 % (47-70); Platelet Count 229 K/mm3 (150-450); RBC Distribution Width CV 13.1 % (11.6-14.6); RBC Distribution Width SD 46.2 fl (35.1-43.9); Red Blood Count 3.51 M/mm3 (4.6-6.2); White Blood Count 3.3 K/mm3 (4.4-11.0)
[2022-02-14 17:43] LABS: Anion Gap 4 (5-15); BUN 26 mg/dL (7-18); BUN/Creat Ratio 20.3 RATIO (10-20); Calcium,Total 8.8 mg/dL (8.5-10.1); Chloride 106 mmol/L (98-107); Creatinine, Serum 1.28 mg/dL (0.70-1.30); EST Glomerular Filtration Rate 58 mL/min (>60); Est Glom Filt Rate - Afr Amer 70 mL/min (>60); Glucose 102 mg/dL (74-106); Sodium Level 140 mmol/L (136-145)
[2022-02-14 17:49] LABS: D-Dimer Quantitative (DVT/PE) 0.75 FEU/ug/m (0.27-0.49)
[2022-02-14 18:03] LABS: BNP,B-Type NATRIURETIC PEPTIDE 116.1 pg/mL (0-100)
== END 2022-02-14 23:59 | disposition home or self-care (01) ==
LOC: POLAB3 16:58
PROVIDERS: PCP Family Medicine Geriatric Medicine; Visit Provider Family Medicine Geriatric Medicine
DX: R60.9 Edema, unspecified (principal)
CPT/HCPCS: 36415; 80048; 83880; 85025; 85379

== ENCOUNTER 2022-02-15 13:18 | Outpatient (CLI) | payer MEDICARE, OTHER, SELFPAY ==
--- NOTE | 2022-02-15 13:32 | VDLE_ITS ---
Reason For Study: Edema Procedure LEFT This is a venous duplex using B-mode, color GSV is normal. flow and spectral Doppler. CFV is compressible, spontaneous, phasic, Exam performed in department. competent, and demonstrates normal A preliminary report was called and/or faxed augmentation. to [facility]. FV is compressible, spontaneous, phasic, competent and demonstrates normal augmentation. POP V is compressible, spontaneous, phasic, competent and demonstrates normal augmentation. T/P Trunk is compressible. PTV is compressible. LT PerV is compressible. VL/Venous Duplex US, Unilateral Interpretation Summary Deep veins of the left lower extremity are patent and compressible segmentally. There is no evidence of left lower extremity deep vein thrombosis. Valvular competence appears intac t within the proximal deep venous system on the left . The left great saphenous vein appears patent a nd compressible segmentally. Ordering Physician: Richard Morley Referring Physician: Richard Morley Chi Performed By: Brianne Retana RVT
== END 2022-02-15 23:59 | disposition home or self-care (01) ==
LOC: CVS 13:19
PROVIDERS: PCP Family Medicine Geriatric Medicine; Referring Provider Family Medicine Geriatric Medicine; Visit Provider Family Medicine Geriatric Medicine
DX: R60.0 Localized edema (principal)
CPT/HCPCS: 93971

== ENCOUNTER 2022-02-22 13:54 | Outpatient (CLI) | payer MEDICARE, OTHER, SELFPAY ==
[2022-02-22 15:39] LABS: Anion Gap 5 (5-15); BUN 35 mg/dL (7-18); Calcium,Total 8.8 mg/dL (8.5-10.1); Chloride 106 mmol/L (98-107); Creatinine, Serum 1.59 mg/dL (0.70-1.30); EST Glomerular Filtration Rate 45 mL/min (>60); Est Glom Filt Rate - Afr Amer 54 mL/min (>60); Glucose 127 mg/dL (74-106); Potassium 4.1 mmol/L (3.5-5.1); Sodium Level 141 mmol/L (136-145)
== END 2022-02-22 23:59 | disposition home or self-care (01) ==
LOC: LAB 13:56
PROVIDERS: PCP Family Medicine Geriatric Medicine; Visit Provider Family Medicine Geriatric Medicine
DX: N18.31 Chronic kidney disease, stage 3a (principal)
CPT/HCPCS: 36415; 80048

== ENCOUNTER 2022-03-02 08:52 | Outpatient (CLI) | payer MEDICARE, OTHER, SELFPAY ==
[2022-03-02 12:55] LABS: Anion Gap 5 (5-15); BUN 33 mg/dL (7-18); BUN/Creat Ratio 22.9 RATIO (10-20); Chloride 108 mmol/L (98-107); Creatinine, Serum 1.44 mg/dL (0.70-1.30); EST Glomerular Filtration Rate 50 mL/min (>60); Est Glom Filt Rate - Afr Amer 61 mL/min (>60); Glucose 111 mg/dL (74-106); Potassium 4.2 mmol/L (3.5-5.1); Sodium Level 140 mmol/L (136-145)
== END 2022-03-02 23:59 | disposition home or self-care (01) ==
LOC: POLAB3 08:53
PROVIDERS: PCP Family Medicine Geriatric Medicine; Visit Provider Family Medicine Geriatric Medicine
DX: R60.9 Edema, unspecified (principal)
CPT/HCPCS: 36415; 80048

== ENCOUNTER 2022-03-09 09:38 | Outpatient (CLI) | payer MEDICARE, OTHER, SELFPAY ==
--- NOTE | 2022-03-09 09:40 | ECHOD_ITS ---
Reason For Study: SOB Procedure This was a 2D Doppler, Color Flow transthoracic echocardiogram. Exam performed in department. Left Ventricle Normal LV size. The estimated ejection fraction is 55 %. No evidence for diastolic dysfunction. No regional wall motion abnormalities noted. Right Ventricle Normal right ventricle. There is a pacemaker lead in the right ventricle. Normal systolic function. Atria Normal left atrium. Normal right atrium. ICD or pacer leads identified within the right atrium. No doppler evidence for ASD. Mitral Valve There is no mitral valve stenosis. Trivial mitral valve insufficiency. Tricuspid Valve There is no tricuspid stenosis. Trivial tricuspid valve insufficiency. Pulmonary artery systolic pressure is 30 mmHg. Aortic Valve Trisinus/trileaflet aortic valve. There is no aortic stenosis. Mild (1+) aortic valve insufficiency. Pulmonic Valve There is no pulmonic valvular stenosis. Trivial pulmonic valve insufficiency. Great Vessels Normal aortic root. Pericardium/Pleural No pericardial effusion. MMode/2D Measurements & Calculations LVIDd: 4.9 cm IVSd: 1.8 cm Ao root diam: 3.9 cm LVIDs: 3.5 cm LVPWd: 1.4 cm RVDd: 4.7 cm FS: 28.2 % LAV(MOD-sp2): 100.6 ml LVAd ap4: 42.4 cm2 LVAd ap2: 30.2 cm2 LVLd ap4: 9.8 cm LVLd ap2: 8.1 cm EDV(MOD-sp4): 144.6 ml EDV(MOD-sp2): 92.2 ml EDV(sp4-el): 155.2 ml EDV(sp2-el): 96.4 ml LVAs ap4: 25.8 cm2 LVAs ap2: 20.3 cm2 LVLs ap4: 8.1 cm LVLs ap2: 7.4 cm ESV(MOD-sp4): 70.7 ml ESV(MOD-sp2): 47.0 ml ESV(sp4-el): 69.8 ml ESV(sp2-el): 47.5 ml EF(MOD-sp4): 51.1 % EF(MOD-sp2): 49.0 % EF(sp4-el): 55.0 % SV(MOD-sp4): 73.9 ml SV(MOD-sp2): 45.2 ml SV(sp4-el): 85.4 ml Doppler Measurements & Calculations MV E max estuardo: 48.3 cm/sec Lat A' estuardo: 3.9 cm/sec Med Peak E' Estuardo: 3.4 cm/sec MV A max estuardo: 65.8 cm/sec E/E' med: 14.1 MV E/A: 0.73 Ao V2 max: 101.2 cm/sec AI max estuardo: 252.1 cm/sec LV V1 max: 83.0 cm/sec Ao max P.1 mmHg AI max P.5 mmHg LV V1 max P.8 mmHg AI dec slope: 125.7 cm/sec2 AI P1/2t: 587.7 msec PA V2 max: 83.5 cm/sec TR max estuardo: 243.1 cm/sec TR max P.6 mmHg ECHO/Echo Complete Interpretation Summary The estimated ejection fraction is 55 %. No evidence for diastolic dysfunction. Trivial mitral valve insufficiency. Mild (1+) aortic valve insufficiency. Ordering Physician: Richard Morley Referring Physician: Richard Morley Chi Performed By: Rachele Cao RCS
== END 2022-03-09 23:59 | disposition home or self-care (01) ==
LOC: CVS 09:39
PROVIDERS: PCP Family Medicine Geriatric Medicine; Referring Provider Family Medicine Geriatric Medicine; Visit Provider Family Medicine Geriatric Medicine
DX: R06.02 Shortness of breath (principal)
CPT/HCPCS: 93306

== ENCOUNTER 2022-06-14 20:08 | Emergency (ER) | payer MEDICARE, OTHER, SELFPAY ==
[2022-06-14 20:08] VITALS: BP 162/94; PULSE 59; RESP 16; TEMP 36.6; O2SAT 99; BMI 34.4
--- NOTE | 2022-06-14 20:19 | ED.VIS.LOWEX ---
HPI History of Present Illness Chief Complaint: Laceration Informant: patient Occured/Mechanism Mechanism/Context: Yes same level fall Comment: Tripped over walker while jumping a bucket of water, sustaining a laceration on the side of the plastic bucket versus his right leg/calf. Onset/Context/Timing Onset: Today Context: Sudden Onset Timing: Continuous Quality of Pain: - (Sore) Location: Right calf Current Severity: Mild Maximum Severity: Mild Worsened by: palpation Relieved by: leaving alone Associated Symptoms Associated Symptoms: Negative for Parasthesia, Weakness or Loss of Funtion Narrative Narrative: Mechanical injury, no prodromal symptoms or recent illness. Patient is on Xarelto because of a history of paroxysmal atrial fibrillation. He does have the bleeding under control. Other than a minor abrasion to his knee other injury. Able to ambulate without difficulty. Tetanus Immunization: 5-10 years [facility] Medical History Acute on chronic blood loss anemia Ambulates with cane Anemia Arthritis Atherosclerotic heart disease of [place] coronary artery without angina pectoris Back pain Biventricular automatic implantable cardioverter defibrillator in situ Biventricular implantable cardioverter-defibrillator (ICD) in situ BPH (benign prostatic hyperplasia) Bruising Cancer Cardiology follow-up encounter Chronic renal failure, stage 3a COVID-19 Dilated cardiomyopathy Essential hypertension Former smoker Gastric reflux GERD (gastroesophageal reflux disease) Gout Heme + stool Hiatal hernia History of blood transfusion History of cardiac pacemaker History of echocardiogram History of edema History of IBS History of renal disease History of stress test History of stroke History of wrist fracture Hx of renal calculi Hyperlipidemia Hypertension Iron deficiency anemia Iron deficiency anemia due to chronic blood loss Left bundle branch block Leg cramps correction current use 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 Osteoarthritis Over 67 years old Paroxysmal atrial fibrillation Premature ventricular contraction Preoperative cardiovascular examination Shortness of breath on exertion Sick sinus syndrome Sleep apnea Stroke/cerebrovascular accident Testicular cancer Wears dentures Wears glasses Home Medications allopurinol 300 mg tablet 300 mg PO DAILY Check with primary doctor 09/20/17 [History Last Taken 08/06/21] tamsulosin 0.4 mg capsule 0.4 mg PO BID Retention 09/20/17 [History Last Taken 08/06/21] gabapentin 100 mg capsule 100 mg PO QHS pain 01/18/21 [History Last Taken 08/06/21] rivaroxaban 20 mg tablet (Xarelto) 20 mg PO DAILY Check with primary doctor 06/07/21 [History Last Taken 08/08/21 14:00] polysaccharide iron complex 150 mg iron capsule (iFerex 150) 150 mg PO DAILY supplement 07/21/21 [History Last Taken 08/06/21] famotidine 40 mg tablet 40 mg PO DAILY Check with primary doctor 07/26/21 [History Last Taken 08/06/21] carvedilol 6.25 mg tablet 6.25 mg PO BID blood pressure 08/08/21 [History Last Taken Unknown] atorvastatin 20 mg tablet 20 mg PO QHS cholesterol #90 tabs 12/05/21 [Rx Last Taken Unknown] diphenhydramine HCl 25 mg capsule (Benadryl) 25 mg PO QHS PRN 03/30/22 [History Last Taken Unknown] furosemide 20 mg tablet (Lasix) 40 mg PO DAILY Check with primary doctor 03/30/22 [History Last Taken Unknown] Allergy/AdvReac Type Severity Reaction Status Date / Time No Known Allergies Allergy Verified 06/14/22 20:10 Family History Father , Age 59, gallbladder complications No problems noted. Mother , Age 85 No problems noted. Brother , Age 68 Cancer Brother CVA (cerebral vascular accident) seizure disorder post fall injury Surgical History History of appendectomy History of bunionectomy History of cardiac catheterization History of left heart catheterization History of testicular surgery Hx of colonoscopy S/P cataract surgery Status post total right knee replacement Social History Smoking Status: Former smoker quit date: 11/25/94 ROS ROS ED Constitutional Constitutional ED: Denies chills or fever(s) Musculoskeletal Musculoskeletal: Reports extremity pain; Denies neck pain Integumentary Reports wounds; Denies Abrasions or rash Neurologic Neurologic: Denies paresthesias or weakness Hematologic/Lymphatic Hematologic/Lymphatic: Reports easy bleeding and easy bruising EXAM Physical Exam Const Vital Signs: 06/14/22 20:08 Temperature 97.8 F Temperature Source Temporal Pulse Rate 59 L Respiratory Rate 16 Blood Pressure 162/94 H Blood Pressure Mean 116 Pulse Ox 99 Oxygen Delivery Method Room Air Positive well nourished and well developed General Appearance ED: well developed and NAD Neck full ROM and supple Back/Spine normal ROM and normal to inspection Extremity Extremity Narrative: V-shaped 4 cm laceration into subcutaneous fat without any other structures visible within the wound lateral mid right calf. No active bleeding. Minimal tenderness. Neurovascularly intact distally. Minor abrasion right proximal lateral forearm. No bony tenderness. No other injuries. Neuro oriented x3, no focal motor deficits and no sensory deficits noted Sensorium / Orientation: alert Psych mental status grossly normal and thought process normal Skin no wounds Rashes: no rashes MDM MDM MDM Narrative Medical decision making narrative: Laceration was irrigated under pressure and repaired, there was minimal oozing of blood, dressing with bacitracin was placed by nursing afterwards, discussed follow-up and care at home he is comfortable with that plan. This does not appear to be deep enough to require antibiotics. Procedures Lacerations R calf: Length: 4 cm Depth: Sub Q Shape: V-shaped Prep: Sterile Conditions and Chlorhexadine Laceration repair: Irrigated, Lidocaine with epi (5cc, 1%), Local, Skin sutures and Wound explored Irrigated (ml): 180 Number of Sutures/Mendoza: 7 Suture Information: Ethilon, Simple and 4-0 Discharge Plan Triage Chief Complaint: Laceration ED Provider: Magdiel Blakely Dx/Rx/DC Orders Clinical Impression: Laceration of lower leg, right Instructions: ED Laceration: All Closures Prescriptions: No Action famotidine 40 mg tablet 40 mg PO DAILY diphenhydramine HCl [Benadryl] 25 mg capsule 25 mg PO QHS PRN tamsulosin 0.4 MG capsule 0.4 mg PO BID allopurinol 300 MG tablet 300 mg PO DAILY polysaccharide iron complex [iFerex 150] 150 mg iron capsule 150 mg PO DAILY Label Comments: Take 1 Capsule orally once per day for 30 days furosemide [Lasix] 20 mg tablet 40 mg PO DAILY Rx Instructions: 20 mg PO alternate 20mg every other day with 40mg; Xarelto 20 mg tablet 20 mg PO DAILY carvedilol 6.25 mg tablet 6.25 mg PO BID gabapentin 100 mg capsule 100 mg PO QHS atorvastatin 20 mg tablet 20 mg PO QHS Qty: 90 3RF Primary Care Provider: Richard Morley Chi Referrals: Richard Morley Chi, MD [Primary Care Provider] - 10 Day for suture removal (or may go to ER/urgent care) Disposition Disposition: Home, Self Care
[2022-06-14] MEDS: Lidocaine 1% /Epi 1:100 (20ml) 20 ML Vial INFILT (20:55)
== END 2022-06-14 21:11 | disposition home or self-care (01) ==
PROVIDERS: Emergency Provider Emergency Medicine; PCP Family Medicine Geriatric Medicine; Visit Provider Emergency Medicine
DX: S81.811A Laceration without foreign body, right lower leg, initial encounter (principal); I42.0 Dilated cardiomyopathy; N18.31 Chronic kidney disease, stage 3a; W18.30XA Fall on same level, unspecified, initial encounter; I12.9 Hypertensive chronic kidney disease with stage 1 through stage 4 chronic kidney disease, or unspecified chronic kidney disease; I25.10 Atherosclerotic heart disease of native coronary artery without angina pectoris; E78.5 Hyperlipidemia, unspecified; Z87.891 Personal history of nicotine dependence; Z79.01 Long term (current) use 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s; Z86.16 Personal history of COVID-19; Z86.73 Personal history of transient ischemic attack (TIA), and cerebral infarction without residual deficits
CPT/HCPCS: 12002; 99283

== ENCOUNTER → 2022-06-25 | Outpatient (CLI) | payer MEDICARE, OTHER, SELFPAY ==
[2022-06-25 16:09] LABS: Absolute Lymphocyte Count 1.27 X10^3/uL (0.83-4.51); Absolute Neutrophil Count 2.4 X10^3/uL (2.0-7.7); Basophil# 0.05 X10^3/uL; Basophil% 1.1 % (0-1); Eosinophil# 0.25 X10^3/uL; Eosinophils% 5.4 % (0-5); Hematocrit 33.6 % (40-54); Hemoglobin 10.9 g/dL (13.0-16.5); Lymphocyte # 1.27 X10^3/ul (0.83-4.51); Lymphocyte % 27.5 % (19-41); Mean Corp Hgb Conc 32.4 g/dL (32-36); Mean Corpuscular Hgb 31.2 pg (27.0-32.0); Mean Corpuscular Volume 96.3 fL (80-94); Mean Platelet Vol. 10.2 fl (6.2-12.0); Monocyte# 0.62 X10^3/uL; Monocyte% 13.4 % (0-10); NRBC Flagged by Analyzer 0 % (0-5); Neutrophil # 2.42 X10^3/uL (2.7-7.7); Neutrophil % 52.4 % (47-70); Platelet Count 213 K/mm3 (150-450); RBC Distribution Width CV 13.7 % (11.6-14.6); RBC Distribution Width SD 48.5 fl (35.1-43.9); Red Blood Count 3.49 M/mm3 (4.6-6.2); White Blood Count 4.6 K/mm3 (4.4-11.0)
[2022-06-25 16:29] LABS: AST(SGOT) 17 U/L (15-37); Alanine Aminotransfer ALT/SGPT 19 U/L (16-61); Albumin, Serum 3.4 g/dL (3.2-5.0); Alkaline Phosphatase 101 U/L (45-117); Anion Gap 6 (5-15); BUN 26 mg/dL (7-18); BUN/Creat Ratio 20.6 RATIO (10-20); Calcium,Total 8.8 mg/dL (8.5-10.1); Chloride 105 mmol/L (98-107); Creatinine, Serum 1.26 mg/dL (0.70-1.30); EST Glomerular Filtration Rate 59 mL/min (>60); Est Glom Filt Rate - Afr Amer 71 mL/min (>60); Globulin 3.3 g/dL (2.2-4.2); Glucose 81 mg/dL (74-106); Potassium 4.1 mmol/L (3.5-5.1); Protein, Total 6.7 g/dL (6.4-8.2); Sodium Level 141 mmol/L (136-145); Thyroid Stim Hormone (TSH) 1.41 uIU/mL (0.358-3.74); Uric Acid 4.5 mg/dL (3.5-7.2); Vitamin D,25 Hydroxy 22.9 ng/mL
== END | disposition home or self-care (01) ==
LOC: POLAB3 13:20
PROVIDERS: PCP Family Medicine Geriatric Medicine; Visit Provider Family Medicine Geriatric Medicine
DX: I10 Essential (primary) hypertension (principal); M10.9 Gout, unspecified; E55.9 Vitamin D deficiency, unspecified
CPT/HCPCS: 36415; 80053; 82306; 84443; 84550; 85025

== ENCOUNTER → 2022-11-07 | Outpatient (CLI) | payer MEDICARE, OTHER, SELFPAY ==
[2022-11-07 17:17] LABS: Absolute Neutrophil Count 2.4 X10^3/uL (2.0-7.7); Basophil# 0.04 X10^3/uL; Basophil% 0.9 % (0-1); Eosinophil# 0.18 X10^3/uL; Eosinophils% 4.1 % (0-5); Hematocrit 37.6 % (40-54); Hemoglobin 12.4 g/dL (13.0-16.5); Mean Corpuscular Hgb 31.6 pg (27.0-32.0); Mean Corpuscular Volume 95.9 fL (80-94); Mean Platelet Vol. 11.4 fl (6.2-12.0); Monocyte# 0.58 X10^3/uL; Monocyte% 13.1 % (0-10); NRBC Flagged by Analyzer 0 % (0-5); Neutrophil # 2.43 X10^3/uL (2.7-7.7); Neutrophil % 54.7 % (47-70); Platelet Count 208 K/mm3 (150-450); RBC Distribution Width CV 13.4 % (11.6-14.6); RBC Distribution Width SD 46.9 fl (35.1-43.9); Red Blood Count 3.92 M/mm3 (4.6-6.2); White Blood Count 4.4 K/mm3 (4.4-11.0)
[2022-11-07 17:55] LABS: ALB/GLOB Ratio 1.2 RATIO (0.9-2.4); AST(SGOT) 17 U/L (15-37); Alanine Aminotransfer ALT/SGPT 21 U/L (16-61); Albumin, Serum 3.6 g/dL (3.2-5.0); Alkaline Phosphatase 107 U/L (45-117); Anion Gap 10 (5-15); BUN 28 mg/dL (7-18); Calcium,Total 8.9 mg/dL (8.5-10.1); Chloride 106 mmol/L (98-107); Creatinine, Serum 1.47 mg/dL (0.70-1.30); EST Glomerular Filtration Rate 49 mL/min (>60); Est Glom Filt Rate - Afr Amer 59 mL/min (>60); Globulin 3.1 g/dL (2.2-4.2); Glucose 106 mg/dL (74-106); Potassium 3.7 mmol/L (3.5-5.1); Protein, Total 6.7 g/dL (6.4-8.2); Sodium Level 141 mmol/L (136-145); Thyroid Stim Hormone (TSH) 0.85 uIU/mL (0.358-3.74); Uric Acid 4.8 mg/dL (3.5-7.2)
== END | disposition home or self-care (01) ==
PROVIDERS: PCP Family Medicine Geriatric Medicine; Visit Provider Family Medicine Geriatric Medicine
DX: I10 Essential (primary) hypertension (principal); E55.9 Vitamin D deficiency, unspecified; M10.9 Gout, unspecified
CPT/HCPCS: 36415; 80053; 82306; 84443; 84550; 85025

== ENCOUNTER → 2022-11-13 | Outpatient (CLI) | payer MEDICARE, OTHER, SELFPAY | END | disposition home or self-care (01) | LOC: PSN 12:23 | PROVIDERS: PCP Family Medicine Geriatric Medicine; Referring Provider Family Medicine Geriatric Medicine; Visit Provider Family Medicine Geriatric Medicine | DX: R68.83 Chills (without fever) (principal) | CPT/HCPCS: 87635; 87804; 87807; C9803; U0003; U0005 ==

== ENCOUNTER → 2023-04-01 | Outpatient (CLI) | payer MEDICARE, OTHER, SELFPAY ==
[2023-04-01 08:24] LABS: Absolute Lymphocyte Count 0.88 X10^3/uL (0.83-4.51); Absolute Neutrophil Count 2.2 X10^3/uL (2.0-7.7); Basophil# 0.03 X10^3/uL; Basophil% 0.8 % (0-1); Eosinophils% 5.3 % (0-5); Hematocrit 34.8 % (40-54); Hemoglobin 10.9 g/dL (13.0-16.5); Lymphocyte # 0.88 X10^3/ul (0.83-4.51); Lymphocyte % 23.2 % (19-41); Mean Corp Hgb Conc 31.3 g/dL (32-36); Mean Corpuscular Hgb 29.8 pg (27.0-32.0); Mean Corpuscular Volume 95.1 fL (80-94); Mean Platelet Vol. 10.8 fl (6.2-12.0); Monocyte# 0.52 X10^3/uL; Monocyte% 13.7 % (0-10); NRBC Flagged by Analyzer 0 % (0-5); Neutrophil # 2.16 X10^3/uL (2.7-7.7); Neutrophil % 56.7 % (47-70); Platelet Count 214 K/mm3 (150-450); RBC Distribution Width CV 13.3 % (11.6-14.6); RBC Distribution Width SD 46.5 fl (35.1-43.9); Red Blood Count 3.66 M/mm3 (4.6-6.2); White Blood Count 3.8 K/mm3 (4.4-11.0)
[2023-04-01 08:43] LABS: BNP,B-Type NATRIURETIC PEPTIDE 404.5 pg/mL (0-100)
[2023-04-01 08:51] LABS: Anion Gap 4 (5-15); BUN 26 mg/dL (7-18); BUN/Creat Ratio 21.3 RATIO (10-20); Chloride 109 mmol/L (98-107); Creatinine, Serum 1.22 mg/dL (0.70-1.30); EST Glomerular Filtration Rate 61 mL/min (>60); Est Glom Filt Rate - Afr Amer 73 mL/min (>60); Glucose 102 mg/dL (74-106); Potassium 4.5 mmol/L (3.5-5.1); Sodium Level 141 mmol/L (136-145); Thyroid Stim Hormone (TSH) 1.57 uIU/mL (0.358-3.74)
== END | disposition home or self-care (01) ==
LOC: LAB 08:04
PROVIDERS: PCP Family Medicine Geriatric Medicine; Referring Provider Physician Assistant Medical; Visit Provider Physician Assistant Medical
DX: I42.0 Dilated cardiomyopathy (principal); I48.0 Paroxysmal atrial fibrillation; I25.10 Atherosclerotic heart disease of native coronary artery without angina pectoris; E78.5 Hyperlipidemia, unspecified; I10 Essential (primary) hypertension; Z95.810 Presence of automatic (implantable) cardiac defibrillator; R06.09 Other forms of dyspnea
CPT/HCPCS: 36415; 80048; 83880; 84443; 85025

== ENCOUNTER → 2023-04-19 | Outpatient (CLI) | payer MEDICARE, OTHER, SELFPAY ==
--- NOTE | 2023-04-19 13:46 | ECHOCS_ITS ---
Reason For Study: CHF Procedure This was a 2D Doppler, Color Flow transthoracic echocardiogram. Technically difficult study due to patient body habitus and arrhythmia. Contrast injection was performed. Exam performed in department. Left Ventricle Normal LV size. Mild concentric left ventricular hypertrophy. Left ventricular systolic function is lower limits of normal. The estimated ejection fraction is 53 %. No regional wall motion abnormalities noted. Right Ventricle Normal RV size. ICD or pacer leads identified within the right ventricle. Normal systolic function. Atria The left atrium is moderately enlarged. The right atrium is mildly enlarged. Mitral Valve Normal mitral valve. Mild (1+) mitral valve insufficiency. Tricuspid Valve Normal tricuspid valve. Mild (1+) tricuspid valve insufficiency. Pulmonary artery systolic pressure is 35 mmHg. Aortic Valve Normal aortic valve. Trisinus/trileaflet aortic valve. Mild (1+) aortic valve insufficiency. Pulmonic Valve Normal pulmonic valve. Mild (1+) pulmonic valve insufficiency. Great Vessels Normal aortic root. The pulmonary artery is normal size. Normal inferior vena cava. Pericardium/Pleural No pericardial effusion. Medication 22 gauge I.V. with prn adaptor inserted into right arm. Diluted definity 2.5ml given slow IV push to enhance endocardial definition. MMode/2D Measurements & Calculations LVIDd: 4.9 cm IVSd: 1.2 cm Ao root diam: 4.1 cm LVIDs: 4.0 cm LVPWd: 1.4 cm LA dimension: 5.0 cm RVDd: 5.0 cm FS: 18.6 % LAV(MOD-bp): 100.0 ml LVAd ap4: 46.5 cm2 SV(MOD-sp4): 89.3 ml LAV(MOD-bp) Indexed: 44.3 ml/m2 LVLd ap4: 9.3 cm LAV(MOD-sp2): 88.7 ml EDV(MOD-sp4): 187.1 ml LAV(MOD-sp4): 111.8 ml EDV(sp4-el): 198.2 ml LVAs ap4: 30.4 cm2 LVLs ap4: 8.1 cm ESV(MOD-sp4): 97.8 ml ESV(sp4-el): 97.2 ml EF(MOD-sp4): 47.7 % EF(sp4-el): 50.9 % SV(sp4-el): 101.0 ml LA A4 area: 30.6 cm2 RA A4 area: 24.4 cm2 Time Measurements MV dec time: 0.25 sec Doppler Measurements & Calculations MV E max estuardo: 58.8 cm/sec Lat Peak E' Estuardo: 7.7 cm/sec Med Peak E' Estuardo: 5.0 cm/sec MV A max estuardo: 52.1 cm/sec E/E' lat: 7.6 E/E' med: 11.7 MV E/A: 1.1 MV V2 max: 65.0 cm/sec MV P1/2t max estuardo: 66.6 cm/sec Ao V2 max: 106.9 cm/sec MV max P.7 mmHg MV P1/2t: 90.6 msec Ao max P.6 mmHg MV V2 mean: 39.9 cm/sec Ao V2 mean: 72.4 cm/sec MV mean P.71 mmHg MV dec slope: 215.2 cm/sec2 Ao mean P.4 mmHg MV V2 VTI: 31.0 cm MVA(P1/2t): 2.4 cm2 Ao V2 VTI: 23.5 cm AV (velocity ratio): 0.80 AI max estuardo: 351.3 cm/sec LV V1 max: 81.8 cm/sec PA V2 max: 112.7 cm/sec AI max P.4 mmHg LV V1 max P.7 mmHg LV V1 mean P.4 mmHg AI dec slope: 120.3 cm/sec2 LV V1 mean: 55.4 cm/sec AI P1/2t: 855.3 msec LV V1 VTI: 18.7 cm TR max estuardo: 281.6 cm/sec TR max P.7 mmHg ECHO/Echo Complete W/ Contrast Interpretation Summary Normal LV size. Mild concentric left ventricular hypertrophy. Left ventricular systolic function is lower limits of normal. The estimated ejection fraction is 53 %. The left atrium is moderately enlarged. Contrast injection was performed. Ordering Physician: Saumya Rosario Referring Physician: Richard Morley Chi Performed By: Juanpablo Woods RCS
== END | disposition home or self-care (01) ==
LOC: CVS 13:45
PROVIDERS: PCP Family Medicine Geriatric Medicine; Referring Provider Physician Assistant Medical; Visit Provider Physician Assistant Medical
DX: I25.10 Atherosclerotic heart disease of native coronary artery without angina pectoris (principal); I42.0 Dilated cardiomyopathy; I48.0 Paroxysmal atrial fibrillation; E78.5 Hyperlipidemia, unspecified; I10 Essential (primary) hypertension; Z95.810 Presence of automatic (implantable) cardiac defibrillator; R06.09 Other forms of dyspnea
CPT/HCPCS: 93306; Q9957; A4216; C8929

== ENCOUNTER → 2023-05-01 | Outpatient (CLI) | payer MEDICARE, OTHER, SELFPAY ==
[2023-05-01 14:08] LABS: Absolute Lymphocyte Count 1.26 X10^3/uL (0.83-4.51); Absolute Neutrophil Count 1.9 X10^3/uL (2.0-7.7); Basophil# 0.03 X10^3/uL; Basophil% 0.8 % (0-1); Eosinophils% 5.2 % (0-5); Hematocrit 35.4 % (40-54); Lymphocyte # 1.26 X10^3/ul (0.83-4.51); Lymphocyte % 32.7 % (19-41); Mean Corp Hgb Conc 31.1 g/dL (32-36); Mean Corpuscular Hgb 30.2 pg (27.0-32.0); Mean Corpuscular Volume 97.3 fL (80-94); Mean Platelet Vol. 10.3 fl (6.2-12.0); Monocyte# 0.47 X10^3/uL; Monocyte% 12.2 % (0-10); NRBC Flagged by Analyzer 0 % (0-5); Neutrophil # 1.88 X10^3/uL (2.7-7.7); Neutrophil % 48.8 % (47-70); Platelet Count 188 K/mm3 (150-450); RBC Distribution Width CV 13.4 % (11.6-14.6); Red Blood Count 3.64 M/mm3 (4.6-6.2); White Blood Count 3.9 K/mm3 (4.4-11.0)
[2023-05-01 14:57] LABS: Vitamin D,25 Hydroxy 24.3 ng/mL
[2023-05-01 15:02] LABS: ALB/GLOB Ratio 1.1 RATIO (0.9-2.4); AST(SGOT) 16 U/L (15-37); Alanine Aminotransfer ALT/SGPT 16 U/L (16-61); Albumin, Serum 3.4 g/dL (3.2-5.0); Alkaline Phosphatase 104 U/L (45-117); Anion Gap 3 (5-15); BUN 32 mg/dL (7-18); BUN/Creat Ratio 22.4 RATIO (10-20); Calcium,Total 8.9 mg/dL (8.5-10.1); Chloride 108 mmol/L (98-107); Creatinine, Serum 1.43 mg/dL (0.70-1.30); EST Glomerular Filtration Rate 50 mL/min (>60); Est Glom Filt Rate - Afr Amer 61 mL/min (>60); Globulin 3.1 g/dL (2.2-4.2); Glucose 110 mg/dL (74-106); Potassium 3.9 mmol/L (3.5-5.1); Protein, Total 6.5 g/dL (6.4-8.2); Sodium Level 139 mmol/L (136-145); Thyroid Stim Hormone (TSH) 1.06 uIU/mL (0.358-3.74)
== END | disposition home or self-care (01) ==
LOC: LAB 13:39
PROVIDERS: PCP Family Medicine Geriatric Medicine; Referring Provider Family Medicine Geriatric Medicine; Visit Provider Family Medicine Geriatric Medicine
DX: I10 Essential (primary) hypertension (principal); E55.9 Vitamin D deficiency, unspecified
CPT/HCPCS: 36415; 80053; 82306; 84443; 84550; 85025

== ENCOUNTER → 2023-09-16 | Outpatient (CLI) | payer MEDICARE, OTHER, SELFPAY ==
--- NOTE | 2023-09-16 13:35 | RAD_ITS ---
STUDY: X-RAY - LUMBAR SPINE REASON FOR EXAM: Male, 83 years old. Pain. Spinal stenosis. TECHNIQUE: 2 view(s) of the lumbar spine were obtained. COMPARISON: October 24, 2020 FINDINGS: Osteopenia. Rotatory dextroscoliosis unchanged. 9 mm of anterolisthesis of L3 on L2, unchanged. Diffuse lower thoracic and lumbosacral facet sclerosis unchanged. Increased loss of volume of the L2 vertebral body. Diffuse intervertebral disc space narrowing with marked osteophyte formation at T11-T12, T12-L1 and L1-L2, relatively unchanged from prior study. Interbody fusion at L3-4 unchanged. Stable marked vascular calcifications. RAD/Lumbar Spine 2 or 3 Views IMPRESSION: Osteopenia with progressed loss of height of the L2 vertebral body. Diffuse moderate to marked lower thoracic and lumbosacral spondylosis as described. No acute abnormality. Electronically Signed: Tino Michel MD at 15:12 EDT ,
== END | disposition home or self-care (01) ==
PROVIDERS: PCP Family Medicine Geriatric Medicine; Referring Provider Anesthesiology Pain Medicine; Visit Provider Anesthesiology Pain Medicine
DX: M48.061 Spinal stenosis, lumbar region without neurogenic claudication (principal)
CPT/HCPCS: 72100

== ENCOUNTER → 2023-11-11 | Outpatient (CLI) | payer MEDICARE, OTHER, SELFPAY ==
[2023-11-11 14:37] LABS: Absolute Lymphocyte Count 1.15 X10^3/uL (0.83-4.51); Absolute Neutrophil Count 2.4 X10^3/uL (2.0-7.7); Basophil# 0.04 X10^3/uL; Basophil% 0.9 % (0-1); Eosinophil# 0.17 X10^3/uL; Hematocrit 34.6 % (40-54); Hemoglobin 10.6 g/dL (13.0-16.5); Lymphocyte # 1.15 X10^3/ul (0.83-4.51); Lymphocyte % 26.9 % (19-41); Mean Corp Hgb Conc 30.6 g/dL (32-36); Mean Corpuscular Hgb 29.7 pg (27.0-32.0); Mean Corpuscular Volume 96.9 fL (80-94); Mean Platelet Vol. 10.5 fl (6.2-12.0); Monocyte# 0.55 X10^3/uL; Monocyte% 12.9 % (0-10); NRBC Flagged by Analyzer 0 % (0-5); Neutrophil # 2.37 X10^3/uL (2.7-7.7); Neutrophil % 55.3 % (47-70); Platelet Count 210 K/mm3 (150-450); RBC Distribution Width SD 49.8 fl (35.1-43.9); Red Blood Count 3.57 M/mm3 (4.6-6.2); White Blood Count 4.3 K/mm3 (4.4-11.0)
[2023-11-11 15:12] LABS: Vitamin D,25 Hydroxy 15.1 ng/mL
[2023-11-11 15:16] LABS: ALB/GLOB Ratio 1.1 RATIO (0.9-2.4); AST(SGOT) 18 U/L (15-37); Alanine Aminotransfer ALT/SGPT 17 U/L (16-61); Albumin, Serum 3.3 g/dL (3.2-5.0); Alkaline Phosphatase 91 U/L (45-117); Anion Gap 6 (5-15); BUN 21 mg/dL (7-18); BUN/Creat Ratio 16.9 RATIO (10-20); Calcium,Total 8.5 mg/dL (8.5-10.1); Chloride 106 mmol/L (98-107); Creatinine, Serum 1.24 mg/dL (0.70-1.30); EST Glomerular Filtration Rate 59 mL/min (>60); Est Glom Filt Rate - Afr Amer 72 mL/min (>60); Glucose 102 mg/dL (74-106); Potassium 4.2 mmol/L (3.5-5.1); Protein, Total 6.3 g/dL (6.4-8.2); Sodium Level 142 mmol/L (136-145); Thyroid Stim Hormone (TSH) 0.93 uIU/mL (0.358-3.74); Uric Acid 4.1 mg/dL (3.5-7.2)
== END | disposition home or self-care (01) ==
LOC: POLAB3 13:16
PROVIDERS: PCP Family Medicine Geriatric Medicine; Visit Provider Family Medicine Geriatric Medicine
DX: I10 Essential (primary) hypertension (principal); M10.9 Gout, unspecified; E55.9 Vitamin D deficiency, unspecified
CPT/HCPCS: 36415; 80053; 82306; 84443; 84550; 85025

== ENCOUNTER → 2023-11-29 | Outpatient (CLI) | payer MEDICARE, OTHER, SELFPAY ==
[2023-11-29 11:22] LABS: Absolute Neutrophil Count 2.9 X10^3/uL (2.0-7.7); Basophil# 0.05 X10^3/uL; Basophil% 1.1 % (0-1); Eosinophil# 0.18 X10^3/uL; Eosinophils% 3.8 % (0-5); Hematocrit 35.9 % (40-54); Hemoglobin 11.2 g/dL (13.0-16.5); Lymphocyte % 21.2 % (19-41); Mean Corp Hgb Conc 31.2 g/dL (32-36); Mean Corpuscular Volume 96.2 fL (80-94); Mean Platelet Vol. 10.2 fl (6.2-12.0); Monocyte# 0.54 X10^3/uL; Monocyte% 11.4 % (0-10); NRBC Flagged by Analyzer 0 % (0-5); Neutrophil # 2.94 X10^3/uL (2.7-7.7); Neutrophil % 62.3 % (47-70); Platelet Count 213 K/mm3 (150-450); RBC Distribution Width CV 13.7 % (11.6-14.6); RBC Distribution Width SD 48.5 fl (35.1-43.9); RET-HE 32.8 pg (30-35); Red Blood Count 3.73 M/mm3 (4.6-6.2); Reticulocyte Count 1.27 % (0.5-1.5); White Blood Count 4.7 K/mm3 (4.4-11.0)
[2023-11-29 12:16] LABS: Vitamin B12 453 pg/mL (211-911)
[2023-11-29 12:30] LABS: Ferritin 382 ng/mL (26-388); Iron 56 ug/dL (65-175); Iron Binding Capacity,Total 256 ug/dL (250-450)
== END | disposition home or self-care (01) ==
LOC: LAB 11:07
PROVIDERS: PCP Family Medicine Geriatric Medicine; Referring Provider Family Medicine Geriatric Medicine; Visit Provider Family Medicine Geriatric Medicine
DX: D50.9 Iron deficiency anemia, unspecified (principal)
CPT/HCPCS: 36415; 82607; 82728; 82746; 83540; 83550; 85025; 85045

== ENCOUNTER → 2023-12-04 | Outpatient (CLI) | payer MEDICARE, OTHER, SELFPAY | END | disposition home or self-care (01) | LOC: LABSPEC 11:06 | PROVIDERS: PCP Family Medicine Geriatric Medicine; Visit Provider Family Medicine Geriatric Medicine | DX: D50.9 Iron deficiency anemia, unspecified (principal) | CPT/HCPCS: 82274 ==

== ENCOUNTER 2023-12-27 08:17 | Day surgery (SDC) | payer MEDICARE, OTHER, SELFPAY ==
[2023-12-27 08:43] VITALS: BP 142/82; PULSE 60; RESP 18; TEMP 36.6; O2SAT 100; BMI 32.7
[2023-12-27] MEDS: Lactated Ringers 1,000 ML 15 ML IV (08:53)
--- NOTE | 2023-12-27 09:21 | HP.PCM_ITS ---
History and Physical Date of Admission: 12/27/23 Intake Vital Signs 03/28/2310:05 12/10/2408:35 Height 5 ft 10 in 5 ft 10 in Weight: 230 lb BMI 33.0 BP 134/77 H Blood Pressure Location Rt brachial Position Sitting Respiration 18 Pulse 59 L Pulse Source Monitor Temp 97.4 F L Temp Source Temporal Pulse Oximetry (%) 98 Oxygen Delivery Method room air Intake Visit Reasons: BLOOD IN STOOL Chief Complaint: blood in stool [employer] Required: No Is patient in pain?: No Allergies No Known Allergies Allergy (Verified 12/10/23 09:36) Medications allopurinol 300 mg tablet 300 mg PO DAILY Check with primary doctor 09/20/17 [History Confirmed 12/10/23] tamsulosin 0.4 mg capsule 0.4 mg PO BID Retention 09/20/17 [History Confirmed 12/10/23] gabapentin 100 mg capsule 100 mg PO QHS pain 01/18/21 [History Confirmed 12/10/23] rivaroxaban 20 mg tablet (Xarelto) 20 mg PO DAILY Check with primary doctor 06/07/21 [History Confirmed 12/10/23] carvedilol 6.25 mg tablet 6.25 mg PO BID blood pressure 08/08/21 [History Confirmed 12/10/23] diphenhydramine HCl 25 mg capsule (Benadryl) 25 mg PO QHS PRN 03/30/22 [History Confirmed 12/10/23] furosemide 20 mg tablet (Lasix) 20 mg PO DAILY Check with primary doctor 10/03/22 [History Confirmed 12/10/23] albuterol sulfate 90 mcg/actuation aerosol inhaler 2 inh inhalation Q4H PRN shortness of breath or wheezing 03/28/23 [History Confirmed 12/10/23] atorvastatin 20 mg tablet See Rx Instructions .Route .COMPLEX #90 tabs 12/02/23 [Rx Confirmed 12/10/23] PFS Medical History (Updated 12/12/23 @ 16:[address] Sabino Levine MD) Acute on chronic blood loss anemia Ambulates with cane Anemia Arthritis Atherosclerotic heart disease of [place] coronary artery without angina pectoris Back pain Biventricular automatic implantable cardioverter defibrillator in situ Biventricular implantable cardioverter-defibrillator (ICD) in situ BPH (benign prostatic hyperplasia) Bruising Cancer Cardiology follow-up encounter Chronic renal failure, stage 3a COVID-19 Dilated cardiomyopathy Essential hypertension Former smoker Gastric reflux GERD (gastroesophageal reflux disease) Gout Heme + stool Hiatal hernia History of blood transfusion History of cardiac pacemaker History of echocardiogram History of edema History of IBS History of renal disease History of stress test History of stroke History of wrist fracture Hx of renal calculi Hyperlipidemia Hypertension Iron deficiency anemia Iron deficiency anemia due to chronic blood loss Left bundle branch block Leg cramps MCC current use 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 Osteoarthritis Over 67 years old Paroxysmal atrial fibrillation Premature ventricular contraction Preoperative cardiovascular examination Shortness of breath on exertion Sick sinus syndrome Sleep apnea Stroke/cerebrovascular accident Testicular cancer Wears dentures Wears glasses Surgical History History of appendectomy History of bunionectomy History of cardiac catheterization History of left heart catheterization History of testicular surgery Hx of colonoscopy S/P cataract surgery Status post total right knee replacement Family History Father , Age 59, gallbladder complications No problems noted. Mother , Age 85 No problems noted. Brother , Age 68 CancerBrother CVA (cerebral vascular accident) seizure disorder post fall injury Social History (Updated 12/10/23 @ 09:35 by Vibha Jalloh LPN) Smoking Status: Former smoker quit date: 11/25/94 alcohol intake: never substance use type: does not use HPI HPI HPI: Patient is a 83-year-old male here for positive fecal occult blood. He does not note any gross blood in his stool or abdominal pain. His last colonoscopy was in 2020 and a small polyp was removed. ROS General General: Yes fatigue Skin Skin: Yes changing moles Musc Musculoskeletal: Yes back problems, arthritis and gout Cardio Cardiovascular: Yes pacemaker and high blood pressure Resp Respiratory: Yes shortness of breath Gastro Gastrointestinal: Yes abdominal pain, Yes blood in stool, Yes acid reflux and Yes black,tarry stools Ricardo Hematologic: Yes blood thinners, Yes blood disorders and Yes bleeding Neuro Neurologic: Yes other (h/o stroke ) Exam Const General: cooperative Orientation: alert and oriented x3 HENMT Head: normal to inspection Neck Neck: normal visual inspection and full ROM Chest Chest palpation & inspection: normal inspection of the chest Resp Effort & Inspection: normal respiratory effort Auscultation: clear to auscultation bilaterally Cardio Rate: regular rate Rhythm: regular rhythm GI Inspection: non-distended Palpation: soft and nontender Skin General: no rashes or lesions noted Neuro General: patient alert and patient oriented x3 Extrem General: full ROM Psych Appearance: grossly normal Mental Status: mental status grossly normal Assessment and Plan Assessment and Plan (1) Heme + stool: Status: Acute Comment: upper and lower endoscopy in the past year remarkable only for 1 colon polyp that was removed Plan: The patient had positive Hemoccult. He was sent here for EGD and colonoscopy. I discussed EGD and colonoscopy with him. Plan on holding his Xarelto for 3 days prior to the procedure. I explained endoscopy in detail to the patient. I explained the risks including but not limited to stroke or heart attack with anesthesia, perforation of the GI tract, bleeding, infection. I explained that any of these could necessitate further emergency surgery. The patient understands and all questions were answered sufficiently. The patient wishes to proceed with procedure. Sabino Levine MD Pager: [facility] [address] [place] [address] [address] [place] [address] Office: I have examined the patient and the H&P has been reviewed. There are no clinical changes since date of exam.
--- NOTE | 2023-12-27 10:06 | OP.CCLET_ITS ---
12/27/2023 Richard Morley MD [address] [place] [address] Re : Upper GI endoscopy procedure for Felton Schwarz Dear Dr. Morley This procedure was performed on Wednesday, December 27, 2023. My impressions and recommendations are as follows: Impressions : - Normal esophagus. - Normal stomach. - Normal examined duodenum. - No specimens collected. Recommendations : - Discharge patient to home. - Resume previous diet. - Continue present medications. - Resume Xarelto (rivaroxaban) at prior dose tomorrow. - Discharge patient to home. - Resume previous diet. - Continue present medications. My findings are described in the full procedure note, which is enclosed. If I can be of further assistance, please feel free to contact me at Doctor phone number(s): , Work: . Sincerely, Sabino Levine MD 12/27/2023 10:06:05 AM This report has been signed electronically.
--- NOTE | 2023-12-27 10:06 | OP.EGD_ITS ---
Patient Name: Felton Schwarz Procedure Date: 12/27/2023 9:27 AM Date of : 1940 Age: 83 Procedure: Upper GI endoscopy Indications: Occult blood in stool Providers: Sabino Levine MD Medicines: Propofol per Anesthesia Patient Profile: This is an 83 year old male. Refer to note in patient chart for documentation of history and physical. Complications: No immediate complications. Procedure: Pre-Anesthesia Assessment: - Prior to the procedure, a History and Physical was performed, and patient medications and allergies were reviewed. The patient's tolerance of previous anesthesia was also reviewed. The risks and benefits of the procedure and the sedation options and risks were discussed with the patient. All questions were answered, and informed consent was obtained. Prior Anticoagulants: The patient has taken Xarelto (rivaroxaban), last dose was 3 days prior to procedure. After reviewing the risks and benefits, the patient was deemed in satisfactory condition to undergo the procedure. After obtaining informed consent, the endoscope was passed under direct vision. Throughout the procedure, the patient's blood pressure, pulse, and oxygen saturations were monitored continuously. The Endoscope was introduced through the mouth, and advanced to the fourth part of duodenum. The upper GI endoscopy was accomplished without difficulty. The patient tolerated the procedure well. Scope In: 9:43:16 AM Scope Out: 9:44:39 AM Total Procedure Duration Time 0 hours 1 minute 23 seconds Findings: The esophagus was normal. The stomach was normal. The examined duodenum was normal. Impression: - Normal esophagus. - Normal stomach. - Normal examined duodenum. - No specimens collected. Recommendation: - Discharge patient to home. - Resume previous diet. - Continue present medications. - Resume Xarelto (rivaroxaban) at prior dose tomorrow. - Discharge patient to home. - Resume previous diet. - Continue present medications. Procedure Code(s): --- Professional --- 71540, Esophagogastroduodenoscopy, flexible, transoral; diagnostic, including collection of specimen(s) by brushing or washing, when performed (separate procedure) Diagnosis Code(s): --- Professional --- R19.5, Other fecal abnormalities CPT copyright 2021 [place]. All rights reserved. The codes documented in this report are preliminary and upon music library assistant review may be revised to meet current compliance requirements. Sabino Levine MD 12/27/2023 10:06:05 AM This report has been signed electronically. Number of Addenda: 0 Note Initiated On: 12/27/2023 9:27 AM
--- NOTE | 2023-12-27 10:08 | OP.CCLET_ITS ---
12/27/2023 Richard Morley MD [address] [place] [address] Re : Colonoscopy procedure for Felton Schwarz Dear Dr. Morley This procedure was performed on Wednesday, December 27, 2023. My impressions and recommendations are as follows: Impressions : - The entire examined colon is normal on direct and retroflexion views. - No specimens collected. Recommendations : - Discharge patient to home. - Resume previous diet. - Continue present medications. - Repeat colonoscopy is not recommended due to current age (66 years or older) for screening purposes. - Resume Xarelto (rivaroxaban) at prior dose tomorrow. My findings are described in the full procedure note, which is enclosed. If I can be of further assistance, please feel free to contact me at Doctor phone number(s): , Work: . Sincerely, Sabino Levine MD 12/27/2023 10:07:38 AM This report has been signed electronically.
--- NOTE | 2023-12-27 10:08 | OP.COLON_ITS ---
Patient Name: Felton Schwarz Procedure Date: 12/27/2023 9:45 AM Date of : 1940 Age: 83 Procedure: Colonoscopy Indications: Gastrointestinal occult blood loss Providers: Sabino Levine MD Medicines: Propofol per Anesthesia Patient Profile: This is an 83 year old male. Refer to note in patient chart for documentation of history and physical. Last Colonoscopy: 3 years ago. Complications: No immediate complications. Procedure: Pre-Anesthesia Assessment: - Prior to the procedure, a History and Physical was performed, and patient medications and allergies were reviewed. The patient's tolerance of previous anesthesia was also reviewed. The risks and benefits of the procedure and the sedation options and risks were discussed with the patient. All questions were answered, and informed consent was obtained. Prior Anticoagulants: The patient has taken Xarelto (rivaroxaban), last dose was 3 days prior to procedure. After reviewing the risks and benefits, the patient was deemed in satisfactory condition to undergo the procedure. After I obtained informed consent, the scope was passed under direct vision. Throughout the procedure, the patient's blood pressure, pulse, and oxygen saturations were monitored continuously. The pediatric colonoscope was introduced through the anus and advanced to the cecum, identified by appendiceal orifice and ileocecal valve. The colonoscopy was performed without difficulty. The patient tolerated the procedure well. The quality of the bowel preparation was good. The ileocecal valve, appendiceal orifice, and rectum were photographed. Scope In: 9:47:56 AM Scope Withdrawal Time 0 hours 4 minutes 41 seconds Scope Out: 10:03:01 AM Total Procedure Duration Time 0 hours 15 minutes 5 seconds Findings: The entire examined colon appeared normal on direct and retroflexion views. Impression: - The entire examined colon is normal on direct and retroflexion views. - No specimens collected. Recommendation: - Discharge patient to home. - Resume previous diet. - Continue present medications. - Repeat colonoscopy is not recommended due to current age (66 years or older) for screening purposes. - Resume Xarelto (rivaroxaban) at prior dose tomorrow. Procedure Code(s): --- Professional --- 85629, Colonoscopy, flexible; diagnostic, including collection of specimen(s) by brushing or washing, when performed (separate procedure) Diagnosis Code(s): --- Professional --- R19.5, Other fecal abnormalities CPT copyright 2021 [employer]. All rights reserved. The codes documented in this report are preliminary and upon window installation subcontractor review may be revised to meet current compliance requirements. Sabino Levine MD 12/27/2023 10:07:38 AM This report has been signed electronically. Number of Addenda: 0 Note Initiated On: 12/27/2023 9:45 AM
[2023-12-27 10:10] VITALS: BP 122/76; BP 142/82; PULSE 64; RESP 16; TEMP 36.9; O2SAT 98
[2023-12-27 10:15] VITALS: BP 140/90; BP 142/82; PULSE 61; RESP 16; O2SAT 98
[2023-12-27 10:20] VITALS: BP 129/109; BP 142/82; PULSE 66; RESP 16; O2SAT 99
[2023-12-27 10:27] VITALS: BP 142/82; BP 151/79; PULSE 65; RESP 16; TEMP 36.7; O2SAT 99
[2023-12-27 10:49] VITALS: BP 142/82
== END 2023-12-27 11:02 | disposition home or self-care (01) ==
LOC: EN 08:18 → AC 08:20
PROVIDERS: PCP Family Medicine Geriatric Medicine; Referring Provider Family Medicine Geriatric Medicine; Visit Provider Surgery
PROC: 0DJD8ZZ Inspection of Lower Intestinal Tract, Via Natural or Artificial Opening Endoscopic (ICD-10-PCS; CPT 45378; principal; 2023-12-27 09:25)
DX: R19.5 Other fecal abnormalities (principal); I48.0 Paroxysmal atrial fibrillation; Z87.891 Personal history of nicotine dependence; I25.10 Atherosclerotic heart disease of native coronary artery without angina pectoris; Z86.16 Personal history of COVID-19; I10 Essential (primary) hypertension; E78.5 Hyperlipidemia, unspecified; Z86.73 Personal history of transient ischemic attack (TIA), and cerebral infarction without residual deficits; Z95.810 Presence of automatic (implantable) cardiac defibrillator; K21.9 Gastro-esophageal reflux disease without esophagitis; M10.9 Gout, unspecified; Z79.01 Long term (current) use 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s; Z90.49 Acquired absence of other specified parts of digestive tract
CPT/HCPCS: 43235; 45378; J7120; J2405

== ENCOUNTER → 2024-04-23 | Outpatient (CLI) | payer MEDICARE, OTHER, SELFPAY ==
--- NOTE | 2024-04-23 09:49 | CT_ITS ---
STUDY: CT ABDOMEN AND PELVIS WITH CONTRAST REASON FOR EXAM: Male, 83 years old. DIVERTICULITIS OF SIGMOID COLON. Left-sided pain. Patient has a history of testicular carcinoma. RADIATION DOSAGE (If Supplied By Facility): CTDIvol = ( 18.56 ) mGy, DLP = ( 1253.58 ) mGycm TECHNIQUE: Transaxial images were obtained from the dome of the diaphragm to the symphysis pubis without oral contrast. Oral and amp; IV Readi-CAT and amp; 100mL Isovue-300 was administered. Sagittal and coronal images were reconstructed. Individualized dose optimization techniques were used for this CT. COMPARISON: Comparison is made with prior study October 21, 2019. FINDINGS: Calcified subcarinal lymph nodes. Stable elevation of the right hemidiaphragm. A left-sided dual-chamber pacemaker is seen. Coronary artery calcification. Scattered hepatic calcified granulomas. Normal gallbladder and extrahepatic biliary system. There are multiple benign calcified granulomata of the spleen. Borderline splenomegaly. Normal pancreas. Normal bilateral adrenal glands. Bilateral renal cysts and bilateral renal atrophy more prominent on the left side. There is a small hiatal hernia. Normal small intestine. There are scattered colonic diverticula consistent with diverticulosis. The patient is status post appendectomy. There is diffuse atherosclerotic calcification of the abdominal aorta and its major visceral branches, without a demonstrated aneurysm. Normal inferior vena cava. Normal retroperitoneum. Mild degree of bladder wall thickening. Normal abdominal wall. There are diffuse degenerative changes of the visualized lumbar spine. There is straightening of the normal lumbar lordosis with fusion of the L3-L4 and L4-L5 vertebrae. CT/Abdomen/Pelvis WITH Contrast IMPRESSION: Hepatic and splenic granulomas. Stable bilateral renal cysts with bilateral renal atrophy. The patient is status post appendectomy. Mild degree of bladder wall thickening. Electronically Signed: Zen Katz MD at 13:26 EDT ,
[2024-04-23 12:35] LABS: CREATININE FINGERSTICK 1.3 mg/dL (0.70-1.30)
[2024-04-23 13:12] LABS: Absolute Lymphocyte Count 0.87 X10^3/uL (0.83-4.51); Basophil# 0.04 X10^3/uL; Basophil% 1.2 % (0-1); Eosinophil# 0.14 X10^3/uL; Hemoglobin 10.5 g/dL (13.0-16.5); Lymphocyte # 0.87 X10^3/ul (0.83-4.51); Lymphocyte % 25.1 % (19-41); Mean Corp Hgb Conc 31.8 g/dL (32-36); Mean Corpuscular Hgb 30.5 pg (27.0-32.0); Mean Corpuscular Volume 95.9 fL (80-94); Mean Platelet Vol. 10.7 fl (6.2-12.0); Monocyte# 0.44 X10^3/uL; Monocyte% 12.7 % (0-10); NRBC Flagged by Analyzer 0 % (0-5); Neutrophil # 1.97 X10^3/uL (2.7-7.7); Platelet Count 199 K/mm3 (150-450); RBC Distribution Width CV 13.3 % (11.6-14.6); RBC Distribution Width SD 46.5 fl (35.1-43.9); Red Blood Count 3.44 M/mm3 (4.6-6.2); White Blood Count 3.5 K/mm3 (4.4-11.0)
[2024-04-23 13:54] LABS: ALB/GLOB Ratio 1.2 RATIO (0.9-2.4); AST(SGOT) 20 U/L (15-37); Alanine Aminotransfer ALT/SGPT 15 U/L (16-61); Albumin, Serum 3.3 g/dL (3.2-5.0); Alkaline Phosphatase 93 U/L (45-117); Anion Gap 6 (5-15); BUN 28 mg/dL (7-18); BUN/Creat Ratio 20.6 RATIO (10-20); Calcium,Total 8.7 mg/dL (8.5-10.1); Chloride 103 mmol/L (98-107); Creatinine, Serum 1.36 mg/dL (0.70-1.30); EST Glomerular Filtration Rate 53 mL/min (>60); Est Glom Filt Rate - Afr Amer 65 mL/min (>60); Globulin 2.7 g/dL (2.2-4.2); Glucose 101 mg/dL (74-106); Potassium 4.1 mmol/L (3.5-5.1); Sodium Level 136 mmol/L (136-145)
== END | disposition home or self-care (01) ==
LOC: CT 09:46
PROVIDERS: PCP Family Medicine Geriatric Medicine; Referring Provider Family Medicine Geriatric Medicine; Visit Provider Family Medicine Geriatric Medicine
DX: E78.5 Hyperlipidemia, unspecified (principal); K57.32 Diverticulitis of large intestine without perforation or abscess without bleeding
CPT/HCPCS: 74177; 80053; 85025; Q9967; A4216

== ENCOUNTER → 2024-05-07 | Outpatient (CLI) | payer MEDICARE, OTHER, SELFPAY ==
--- NOTE | 2024-05-07 17:47 | CT_ITS ---
STUDY: CT LUMBAR SPINE WITHOUT CONTRAST REASON FOR EXAM: Male, 84 years old. COMPRESSION FX RADIATION DOSAGE (If Supplied By Facility): CTDIvol = ( 46.54 ) mGy, DLP = ( 1468.75 ) mGycm TECHNIQUE: The patient was scanned in a multi detector CT scanner. High resolution transaxial imaging was performed. Images were obtained from L1 to S1 level. Sagittal and coronal images were reconstructed. Individualized dose optimization techniques were used for this CT. COMPARISON: Comparison is made with prior study dated May 26, 2019. FINDINGS: There is straightening of the normal lumbar lordosis. There is no substantial scoliosis. Multilevel spondylosis. L1-2: Marked degree of disc space narrowing and disc degeneration. Anterior spondylosis. Mild degree of central canal stenosis and bilateral neural foraminal stenosis. L2-3: Marked degree of disc space narrowing and disc degeneration. Spondylosis. Facet joint osteoarthritis. No significant stenosis seen. L3-4: Marked in degree of disc space narrowing with spondylosis and fusion. Mild degree of central canal stenosis due to the hypertrophy of the ligamentum flavum as well as the facet joints. L4-5: Marked degree of disc space narrowing and fusion. Mild to moderate degree of canal and foraminal stenosis due to hypertrophy of the facet joints worse on the right side and ligamenta flava. L5-S1: Marked degree of disc space narrowing and fusion. Facet joint osteoarthritis and hypertrophy. Atherosclerotic calcification of the abdominal aorta. CT/Spine Lumbar without Contrast IMPRESSION: Multilevel degenerative changes, as described above. Stable examination. No evidence of vertebral compression fracture. Electronically Signed: Zen Katz MD at 9:46 EDT ,
== END | disposition home or self-care (01) ==
LOC: CT 17:44
PROVIDERS: PCP Family Medicine Geriatric Medicine; Referring Provider Family Medicine Geriatric Medicine; Visit Provider Family Medicine Geriatric Medicine
DX: S32.020A Wedge compression fracture of second lumbar vertebra, initial encounter for closed fracture (principal)
CPT/HCPCS: 72131

== ENCOUNTER → 2024-05-11 | Outpatient (CLI) | payer MEDICARE, OTHER, SELFPAY ==
[2024-05-11 15:49] LABS: Absolute Lymphocyte Count 0.98 X10^3/uL (0.83-4.51); Absolute Neutrophil Count 2.6 X10^3/uL (2.0-7.7); Basophil# 0.03 X10^3/uL; Basophil% 0.7 % (0-1); Eosinophils% 4.5 % (0-5); Hematocrit 31.4 % (40-54); Hemoglobin 9.8 g/dL (13.0-16.5); Lymphocyte # 0.98 X10^3/ul (0.83-4.51); Lymphocyte % 22.2 % (19-41); Mean Corp Hgb Conc 31.2 g/dL (32-36); Mean Corpuscular Hgb 30.5 pg (27.0-32.0); Mean Corpuscular Volume 97.8 fL (80-94); Mean Platelet Vol. 10.6 fl (6.2-12.0); Monocyte# 0.58 X10^3/uL; Monocyte% 13.2 % (0-10); NRBC Flagged by Analyzer 0 % (0-5); Neutrophil # 2.61 X10^3/uL (2.7-7.7); Neutrophil % 59.2 % (47-70); Platelet Count 192 K/mm3 (150-450); RBC Distribution Width CV 14.4 % (11.6-14.6); Red Blood Count 3.21 M/mm3 (4.6-6.2); White Blood Count 4.4 K/mm3 (4.4-11.0)
[2024-05-11 16:40] LABS: Vitamin D,25 Hydroxy 19.4 ng/mL
[2024-05-11 19:40] LABS: ALB/GLOB Ratio 1.2 RATIO (0.9-2.4); AST(SGOT) 18 U/L (15-37); Alanine Aminotransfer ALT/SGPT 21 U/L (16-61); Albumin, Serum 3.1 g/dL (3.2-5.0); Alkaline Phosphatase 74 U/L (45-117); Anion Gap 4 (5-15); BUN 31 mg/dL (7-18); BUN/Creat Ratio 23.3 RATIO (10-20); Calcium,Total 8.6 mg/dL (8.5-10.1); Chloride 111 mmol/L (98-107); Creatinine, Serum 1.33 mg/dL (0.70-1.30); EST Glomerular Filtration Rate 55 mL/min (>60); Est Glom Filt Rate - Afr Amer 66 mL/min (>60); Globulin 2.6 g/dL (2.2-4.2); Glucose 115 mg/dL (74-106); Potassium 4.3 mmol/L (3.5-5.1); Protein, Total 5.7 g/dL (6.4-8.2); Sodium Level 143 mmol/L (136-145); Thyroid Stim Hormone (TSH) 0.98 uIU/mL (0.358-3.74); Uric Acid 4.2 mg/dL (3.5-7.2)
== END | disposition home or self-care (01) ==
LOC: LAB 14:18
PROVIDERS: PCP Family Medicine Geriatric Medicine; Visit Provider Family Medicine Geriatric Medicine
DX: I10 Essential (primary) hypertension (principal); E55.9 Vitamin D deficiency, unspecified; M10.9 Gout, unspecified
CPT/HCPCS: 36415; 80053; 82306; 84443; 84550; 85025

== ENCOUNTER → 2024-05-12 | Outpatient (CLI) | payer MEDICARE, OTHER, SELFPAY | END | disposition home or self-care (01) | LOC: LABSPEC 13:48 | PROVIDERS: PCP Family Medicine Geriatric Medicine; Referring Provider Family Medicine Geriatric Medicine; Visit Provider Family Medicine Geriatric Medicine | DX: D50.9 Iron deficiency anemia, unspecified (principal) | CPT/HCPCS: 82274 ==

== ENCOUNTER → 2024-06-03 | Outpatient (CLI) | payer MEDICARE, OTHER, SELFPAY ==
[2024-06-03 15:28] LABS: Absolute Lymphocyte Count 0.99 X10^3/uL (0.83-4.51); Absolute Neutrophil Count 2.4 X10^3/uL (2.0-7.7); Basophil# 0.04 X10^3/uL; Basophil% 0.9 % (0-1); Eosinophils% 4.7 % (0-5); Hematocrit 32.5 % (40-54); Hemoglobin 10.2 g/dL (13.0-16.5); Lymphocyte # 0.99 X10^3/ul (0.83-4.51); Lymphocyte % 23.3 % (19-41); Mean Corp Hgb Conc 31.4 g/dL (32-36); Mean Corpuscular Hgb 30.1 pg (27.0-32.0); Mean Corpuscular Volume 95.9 fL (80-94); Monocyte# 0.58 X10^3/uL; Monocyte% 13.7 % (0-10); NRBC Flagged by Analyzer 0 % (0-5); Neutrophil # 2.41 X10^3/uL (2.7-7.7); Neutrophil % 56.9 % (47-70); Platelet Count 230 K/mm3 (150-450); RBC Distribution Width CV 13.9 % (11.6-14.6); RBC Distribution Width SD 48.7 fl (35.1-43.9); Red Blood Count 3.39 M/mm3 (4.6-6.2); White Blood Count 4.2 K/mm3 (4.4-11.0)
== END | disposition home or self-care (01) ==
LOC: LAB 14:30
PROVIDERS: PCP Family Medicine Geriatric Medicine; Referring Provider Family Medicine Geriatric Medicine; Visit Provider Family Medicine Geriatric Medicine
DX: D64.9 Anemia, unspecified (principal); I10 Essential (primary) hypertension
CPT/HCPCS: 36415; 85025

== ENCOUNTER 2024-06-30 09:21 | Outpatient (CLI) | payer MEDICARE, OTHER, SELFPAY ==
[2024-06-30 09:51] LABS: Absolute Lymphocyte Count 1.03 X10^3/uL (0.83-4.51); Absolute Neutrophil Count 2.6 X10^3/uL (2.0-7.7); Basophil# 0.04 X10^3/uL; Basophil% 0.9 % (0-1); Eosinophil# 0.18 X10^3/uL; Eosinophils% 4.2 % (0-5); Hematocrit 33.9 % (40-54); Hemoglobin 10.6 g/dL (13.0-16.5); Lymphocyte # 1.03 X10^3/ul (0.83-4.51); Lymphocyte % 23.8 % (19-41); Mean Corp Hgb Conc 31.3 g/dL (32-36); Mean Corpuscular Hgb 30.4 pg (27.0-32.0); Mean Corpuscular Volume 97.1 fL (80-94); Monocyte# 0.52 X10^3/uL; NRBC Flagged by Analyzer 0 % (0-5); Neutrophil # 2.55 X10^3/uL (2.7-7.7); Neutrophil % 58.9 % (47-70); Platelet Count 205 K/mm3 (150-450); RBC Distribution Width CV 13.6 % (11.6-14.6); RBC Distribution Width SD 48.4 fl (35.1-43.9); RET-HE 34.1 pg (30-35); Red Blood Count 3.49 M/mm3 (4.6-6.2); Reticulocyte Count 1.33 % (0.5-1.5); White Blood Count 4.3 K/mm3 (4.4-11.0)
[2024-06-30 10:15] LABS: Erythrocyte Sedimentation Rate 4 mm/hr (0-20)
[2024-06-30 10:24] LABS: Vitamin B12 295 pg/mL (211-911)
[2024-06-30 10:44] LABS: ALB/GLOB Ratio 1.1 RATIO (0.9-2.4); AST(SGOT) 17 U/L (15-37); Alanine Aminotransfer ALT/SGPT 18 U/L (16-61); Albumin, Serum 3.2 g/dL (3.2-5.0); Alkaline Phosphatase 90 U/L (45-117); Anion Gap 4 (5-15); BUN 25 mg/dL (7-18); BUN/Creat Ratio 17.7 RATIO (10-20); CRP < 2.90 mg/L (0.0-3.0); Calcium,Total 8.6 mg/dL (8.5-10.1); Chloride 110 mmol/L (98-107); Creatinine, Serum 1.41 mg/dL (0.70-1.30); EST Glomerular Filtration Rate 51 mL/min (>60); Est Glom Filt Rate - Afr Amer 62 mL/min (>60); Ferritin 322 ng/mL (26-388); Glucose 98 mg/dL (74-106); Iron 45 ug/dL (65-175); Iron Binding Capacity,Total 270 ug/dL (250-450); LDH 224 U/L (87-241); Magnesium 2.2 mg/dL (1.6-2.6); PERCENT IRON SATURATION 16.7 % (15.0-55.0); Phosphorus 2.8 mg/dL (2.5-4.9); Potassium 4.2 mmol/L (3.5-5.1); Protein, Total 6.2 g/dL (6.4-8.2); Sodium Level 143 mmol/L (136-145); T4 Free Direct 0.95 ng/dL (0.76-1.46); Thyroid Stim Hormone (TSH) 0.85 uIU/mL (0.358-3.74)
[2024-07-01 16:10] LABS: Albumin 3.3 g/dL (2.9-4.4); Alpha-1-Globulins 0.2 g/dL (0.0-0.4); Alpha-2-Globulins 0.7 g/dL (0.4-1.0); Erythropoietin 17.4 mIU/mL (2.6-18.5); Free Kappa Light Chains 26.3 mg/L (3.3-19.4); Gamma Globulin 0.7 g/dL (0.4-1.8); Immunoglobulin A 133 mg/dL (61-437); Immunoglobulin G 762 mg/dL (603-1613); Immunoglobulin M 16 mg/dL (15-143); PROEL- TOTAL PROTEIN 5.7 g/dL (6.0-8.5)
== END 2024-06-30 23:59 | disposition home or self-care (01) ==
PROVIDERS: PCP Family Medicine Geriatric Medicine; Referring Provider Internal Medicine Medical Oncology; Visit Provider Internal Medicine Medical Oncology
DX: D64.9 Anemia, unspecified (principal)
CPT/HCPCS: 36415; 80053; 82607; 82668; 82728; 82746; 82784; 83540; 83550; 83615; 83735; 83883; 84100; 84165; 84439; 84443; 85025; 85045; 85652; 86140; 86334

== ENCOUNTER 2024-07-30 05:59 | Day surgery (SDC) | payer MEDICARE, OTHER, SELFPAY ==
[2024-07-30] VITALS (7 sets, daily range): BP systolic 138–168; BP diastolic 75–81; PULSE 60–69; RESP 16; TEMP 36.1–36.4; O2SAT 97–100; BMI 32.3
[2024-07-30] MEDS: Lactated Ringers 1,000 ML 15 ML IV (06:42)
--- NOTE | 2024-07-30 07:05 | PCM.PRE.AN2 ---
ASA Classification* ASA Classification ASA Classification: 3 Assessment & Plan Anesthesia* Anesthesia Assessment Anesthesia Assessment: Discussed sedation and/or anesthesia options, risks, benefits, and alternatives with patient/parents/legal guardian/POA. Questions invited. The patient/parents/legal guardian/POA seems to understand and agrees to proceed with anesthesia plan. Reviewed the physical assessment, medical history, allergy history and patient home medications list prior to surgery/procedure/anesthetic and documented any changes. Performed airway and anesthesia risk assessments. Anesthesia Type Anesthesia Type: MAC (see written pre anesthesia record for full assessment) Anesthesia Focused Assessment* Temperature: 97 F Pulse Rate: 61 Blood Pressure: 168/78 Respiratory Rate: 16 Pulse Ox: 100 Airway Assessment Mouth opens: >3 cm Mallampati Score: II Focused Labs Anesthesia Preop lab: CBC WBC 4.3 K/mm3 (4.4-11.0) L 06/30/24 09:26 RBC 3.49 M/mm3 (4.6-6.2) L 06/30/24 09:26 Hgb 10.6 g/dL (13.0-16.5) L 06/30/24 09:26 Hct 33.9 % (40-54) L 06/30/24 09:26 Plt Count 205 K/mm3 (150-450) 06/30/24 09:26 CHEMISTRY Potassium 4.2 mmol/L (3.5-5.1) 06/30/24 09:26 Sodium 143 mmol/L (136-145) 06/30/24 09:26 Magnesium 2.2 mg/dL (1.6-2.6) 06/30/24 09:26 Phosphorus 2.8 mg/dL (2.5-4.9) 06/30/24 09:26 BUN 25 mg/dL (7-18) H 06/30/24 09:26 Creatinine 1.41 mg/dL (0.70-1.30) H 06/30/24 09:26 Glucose 98 mg/dL (74-106) 06/30/24 09:26 POC Glucose 93 mg/dL (70-110) 08/07/21 08:41 TSH 0.85 uIU/mL (0.358-3.74) 06/30/24 09:26 COAG PT 22.1 SECONDS (11.7-14.9) H 07/26/21 09:43 Pre-Assessment Diagnosis/Proposed Procedure Planned Operative Procedure(s): EGD Anesthesia History 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 When Was Last Pacemaker Check 10/06/19 05/12/20 07:57 QUESTION #4 FULL TEXT: You/Your Family Experience fever (hyperthermia) with Anesthesia Last Oral Intake Last Oral intake: Last Oral Intake NPO since 00:00 07/30/24 06:32 Meds taken in AM with sips of water? Meds patient instructed to take am of surgery PONV PONV - childhood teacher: PONV - childhood teacher Female No 07/23/24 14:29 HX of Motion Sickness No 07/23/24 14:29 HX of N/V After Surgery No 07/23/24 14:29 Non-Smoker Yes 07/23/24 14:29 Duration of Surgery greater No 07/23/24 14:29 than 60 minutes Number of Risk Factors 1 07/23/24 14:29 PONV Score Low Risk 07/23/24 14:29 Height & Weight Height & Weight: Anesthesia: Height & Weight Height 5 ft 10 in 07/30/24 06:32 Weight: 102.058 kg 07/30/24 06:32 Body Mass Index (BMI) 32.3 07/30/24 06:32 Respiratory Assessment Respiratory Assessment - childhood teacher: Respiratory Tract Infection Hx - childhood teacher Hx Respiratory Tract Infection No 07/23/24 14:29 STOP Sleep Apnea STOP Sleep Apnea - childhood teacher: STOP Sleep Apnea - childhood teacher Hx Hypertension Yes: CONTROLLED WITH MEDS 07/23/24 14:29 Hx Sleep Apnea Yes 07/23/24 14:29 CPAP No 07/23/24 14:29 BIPAP No 07/23/24 14:29 Do you snore loudly (louder than talking or can be heard Do you often feel tired/ fatigued/ sleepy during daytime? Has anyone observed you stop breathing during sleep? STOP Results Positive 07/23/24 14:29 QUESTION #5 FULL TEXT : Do you snore loudly (louder than talking or can be heard through closed doors)? 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 Specify any problems Hx of Preganancy in last 3 N/A 07/23/24 14:29 Months Nurse Filling Out Transfusion [id number] 07/23/24 14:29 & Questions: Date: 07/23/24 07/23/24 14:29 Time: 14:33 07/23/24 14:29 Patient unable to answer at this time (ie. confused, unrespo /Reproduction History /Reproductive History - childhood teacher: /Reproductive Hx- childhood teacher Hx Now No 07/23/24 14:29 Gestational Age (in weeks): EDC: Hx Hx Para Hx Section SAB No 07/23/24 14:29 Active Medications Active Medications: Current Medications Generic Name Dose Route Start Last Admin Trade Name Freq PRN Reason Stop Dose Admin Lactated Ringer's 1,000 mls @ 15 mls/hr 07/30/24 06:15 07/30/24 06:42 IV 15 mls/hr .Q48H NADIYA Administration PFSH Medical History Pacemaker Testicle cancer Walker as ambulation aid Prostate disease Low iron Excessive bleeding Restless legs CPAP (continuous positive airway pressure) dependence History of CHF (congestive heart failure) Chest pain SMITH (dyspnea on exertion) Biventricular implantable cardioverter-defibrillator (ICD) in situ Over 65 years old COVID-19 Acute on chronic blood loss anemia Iron deficiency anemia due to chronic blood loss History of blood transfusion Heme + stool Osteoarthritis Physical debility BPH (benign prostatic hyperplasia) Chronic renal failure, stage 3a Preoperative cardiovascular examination History of stress test Gout Hx of renal calculi Anemia Back pain History of IBS Shortness of breath on exertion Leg cramps History of edema Hypertension History of echocardiogram Cardiology follow-up encounter Atherosclerotic heart disease of [place] coronary artery without angina pectoris Premature ventricular contraction Wears glasses Wears dentures Cancer Bruising Arthritis Ambulates with cane History of renal disease Stroke/cerebrovascular accident Gastric reflux Former smoker History of cardiac pacemaker History of wrist fracture Iron deficiency anemia Essential hypertension Left bundle branch block Sleep apnea History of stroke Hiatal hernia GERD (gastroesophageal reflux disease) Testicular cancer care home current use 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 Biventricular automatic implantable cardioverter defibrillator in situ Hyperlipidemia Paroxysmal atrial fibrillation Sick sinus syndrome Dilated cardiomyopathy Home Medications ?Medication ?Instructions ?Recorded ?Last Taken ?Type allopurinol 300 mg tablet 300 mg PO DAILY Check with primary 09/20/17 08/06/21 History doctor rivaroxaban 20 mg tablet (Xarelto) 20 mg PO DAILY Check with primary 06/07/21 07/27/24 History doctor carvedilol 6.25 mg tablet 6.25 mg PO BID blood pressure 08/08/21 07/29/24 22:00 History atorvastatin 20 mg tablet See Rx Instructions .Route 12/02/23 Unknown Rx .COMPLEX #90 tabs melatonin 10 mg tablet,extended 10 mg PO QHS 12/25/23 Unknown History release tamsulosin 0.4 mg capsule 0.4 mg PO DAILY Retention 01/22/24 Unknown History gabapentin 100 mg capsule 100 mg PO QHS 06/29/24 Unknown History furosemide 20 mg tablet (Lasix) 10 mg PO DAILY Check with primary 07/13/24 Unknown History doctor Allergy/AdvReac Type Severity Reaction Status Date / Time No Known Allergies Allergy Verified 07/30/24 06:31 Family History Father , Age 59, gallbladder complications No problems noted. Mother , Age 85 Thyroid disorder Brother , Age 68 Cancer Brother CVA (cerebral vascular accident) seizure disorder post fall injury Surgical History History of total right knee replacement H/O wrist surgery H/O hemorrhoidectomy H/O repair of rotator cuff Deficient knowledge of pacemaker insertion History of esophagogastroduodenoscopy (EGD) (~11/2023) Status post total right knee replacement History of cardiac catheterization Hx of colonoscopy (~11/2023) History of appendectomy S/P cataract surgery History of bunionectomy History of testicular surgery History of left heart catheterization Social History Smoking Status: Former smoker quit date: 11/25/94 alcohol intake: never substance use type: does not use Review of Systems (Anesthesia) ROS Narrative System reviewed and no additional complaints, except as documented.
--- NOTE | 2024-07-30 07:13 | HP.PCM_ITS ---
History and Physical Date of Admission: 07/30/24 [facility] [address] [place] [address] OFFICE VISIT Date of Service: 06/30/24 MR#: [id number] Acct: [id number] Name: MIKE RAMOS Rep #: [id number] : 1940 Provider: MATTI James Age/Sex: 84/M Location: [facility] [place] Status: Signed Intake Vital Signs 05/27/2413:12 06/29/2415:17 Height 5 ft 10 in 5 ft 10 in Intake Visit Reasons: Occult Blood Chief Complaint: Referred for anemia evaluation. Allergies No Known Allergies Allergy (Verified 06/29/24 15:10) Medications ?Medication ?Instructions ?Recorded ?Confirmed ?Type allopurinol 300 mg tablet 300 mg PO DAILY Check with primary 09/20/17 06/29/24 History doctor rivaroxaban 20 mg tablet (Xarelto) 20 mg PO DAILY Check with primary 06/07/21 06/29/24 History doctor carvedilol 6.25 mg tablet 6.25 mg PO BID blood pressure 08/08/21 06/29/24 History atorvastatin 20 mg tablet See Rx Instructions .Route 12/02/23 06/29/24 Rx .COMPLEX #90 tabs melatonin 10 mg tablet,extended 10 mg PO QHS 12/25/23 06/29/24 History release tamsulosin 0.4 mg capsule 0.4 mg PO DAILY Retention 01/22/24 06/29/24 History furosemide 20 mg tablet (Lasix) 20 mg PO DAILY Check with primary 06/29/24 06/29/24 History doctor gabapentin 100 mg capsule 100 mg PO QHS 06/29/24 06/29/24 History Have you fallen in the past year?: No Nurse's Note: oV 06.30.24 Pt here for f/u occult blood. Pt reports nausea, diarrhea, blood in stools and abdominal pain. [facility] Medical History (Updated 06/29/24 @ 16:[address] Ruiz Avila MD) Testicle cancer Walker as ambulation aid Prostate disease Low iron Excessive bleeding Restless legs CPAP (continuous positive airway pressure) dependence History of CHF (congestive heart failure) Chest pain SMITH (dyspnea on exertion) Biventricular implantable cardioverter-defibrillator (ICD) in situ Over 67 years old COVID-19 Acute on chronic blood loss anemia Iron deficiency anemia due to chronic blood loss History of blood transfusion Heme + stool Osteoarthritis Physical debility BPH (benign prostatic hyperplasia) Chronic renal failure, stage 3a Preoperative cardiovascular examination History of stress test Gout Hx of renal calculi Anemia Back pain History of IBS Shortness of breath on exertion Leg cramps History of edema Hypertension History of echocardiogram Cardiology follow-up encounter Atherosclerotic heart disease of [place] coronary artery without angina pectoris Premature ventricular contraction Wears glasses Wears dentures Cancer Bruising Arthritis Ambulates with cane History of renal disease Stroke/cerebrovascular accident Gastric reflux Former smoker History of cardiac pacemaker History of wrist fracture Iron deficiency anemia Essential hypertension Left bundle branch block Sleep apnea History of stroke Hiatal hernia GERD (gastroesophageal reflux disease) Testicular cancer custodial current use 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 Biventricular automatic implantable cardioverter defibrillator in situ Hyperlipidemia Paroxysmal atrial fibrillation Sick sinus syndrome Dilated cardiomyopathy Surgical History (Updated 06/29/24 @ 15:14 by Amalia Dhillon LPN) H/O wrist surgery H/O hemorrhoidectomy H/O repair of rotator cuff Deficient knowledge of pacemaker insertion History of esophagogastroduodenoscopy (EGD) (~11/2023) Status post total right knee replacement History of cardiac catheterization Hx of colonoscopy (~11/2023) History of appendectomy S/P cataract surgery History of bunionectomy History of testicular surgery History of left heart catheterization Family History Father , Age 59, gallbladder complications No problems noted. Mother , Age 85 Thyroid disorderBrother , Age 68 CancerBrother CVA (cerebral vascular accident) seizure disorder post fall injury Social History Smoking Status: Former smoker quit date: 11/25/94 alcohol intake: never substance use type: does not use HPI HPI Chief Complaint: Referred for anemia evaluation. Details: MIKE RAMOS, is a 84 M who presents to the office today for establishment with [facility] for anemia and +FOBT. Patient has been anemic for a long time without known etiology but recently was found to have blood in his stool. He does note occasionally having a dark and black bowel movement. He was been taking iron for about 1 month. He has some left lower quadrant pain and diarrhea once every 2 weeks. His last diarrhea episode was after eating grapes. The diarrhea is not bothersome to him and he does not wish to pursue work up at this time. He denies heartburn, n/v, or hematemesis. He underwent scopes in December of 2023 which were are normal. He has not had capsule endoscopy. He does take blood thinners Colonoscopy .01.18:The entire examined colon is normal on direct and retroflexion view. No specimens collected. EGD .01.18: Normal esophagus. Normal stomach. Normal examined duodenum.No specimens collected. ROS Const Constitutional: Positive for fatigue, headache(s), weakness and weight change; No fever(s) ENT ENT: Positive for headache(s); No difficulty swallowing Gastro GI: Positive for abdominal pain, change in bowel habits, diarrhea and Blood in stool; No belching, bloating, change in stool character, coffee ground emesis, constipation, cramping, heartburn, difficulty swallowing, feeling full early, excessive flatus, incontinent of stools, Vomiting blood/hematemesis, loose stools, Black,tarry stools, nausea/dyspepsia, pain with swallowing, vomiting or other Musc Musculoskeletal: Positive for joint pain, back pain, muscle cramps, muscle weakness, numbness, tingling, Arthritis, restless legs and leg pain at night Skin Skin: Positive for dry skin and itchy eyes; No yellowing of the eye Neuro Neurology: Positive for weakness, headache(s), numbness, tingling and restless legs Psych Psychiatric: No anxiety and No depression Endo Endocrine: Positive for fatigue and weight change Aller/Imm Allergy/Immunologic: Positive for itchy eyes Ricardo/Lymp Hematologic/Lymphatic: Positive for easy bleeding and easy bruising Exam Const General: cooperative and comfortable Nutritional Appearance: average body habitus and well nourished [facility] Head: normal to inspection Ears: hearing grossly normal bilaterally Nose: external nose normal Face and sinus: normal facial exam Mouth: oral mucosae normal Throat: posterior oropharynx normal Eyes General: appearance normal, both eyes and all related structures Neck Neck: normal visual inspection Chest Chest palpation & inspection: normal inspection of the chest and normal palpation of entire chest wall Resp Effort & Inspection: normal respiratory effort Auscultation: Bilateral: Clear to Auscultation Cardio Palpation: normal PMI Rate: regular rate Rhythm: regular rhythm GI Inspection: normal to inspection Auscultation: normal bowel sounds Percussion: normal to percussion Palpation: no hepatosplenomegaly Skin General: no rashes or lesions noted Neuro General: patient alert Extrem General: normal to inspection Psych Affect: normal affect Assessment and Plan Assessment and Plan (1) Anemia: Status: Acute Qualifiers: Anemia type: iron deficiency Iron deficiency anemia type: chronic blood loss Qualified Code(s): D50.0 - Iron deficiency anemia secondary to blood loss (chronic) Comment: Discussed causes of anemia, evaluation and management. Patient agrees to proceed. Plan: Patient is here today for establishment with [facility] for anemia and +FOBT. He is on anti-coagulation. -We will schedule him for capsule endoscopy to asses entire bowel for bleeding -Dr. Avila ordered blood work so I will not order any at this time -He does not wish to treat or do testing for his diarrhea I have examined the patient and the H&P has been reviewed. There are no clinical changes since date of exam.
--- NOTE | 2024-07-30 07:38 | OP.EGD_ITS ---
Patient Name: Felton Schwarz Procedure Date: 07/30/2024 7:16 AM Date of : 1940 Age: 84 Procedure: Upper GI endoscopy Indications: Iron deficiency anemia, Melena Providers: Hao Coles DO Referring MD: Richard Morley MD Medicines: Monitored Anesthesia Care Patient Profile: This is an 84 year old male. Refer to note in patient chart for documentation of history and physical. Patient has symptoms. Complications: No immediate complications. Procedure: Pre-Anesthesia Assessment: - Prior to the procedure, a History and Physical was performed, and patient medications and allergies were reviewed. The patient is competent. The risks and benefits of the procedure and the sedation options and risks were discussed with the patient. All questions were answered and informed consent was obtained. Patient identification and proposed procedure were verified by the physician in the pre-procedure area. Mental Status Examination: alert and oriented. Airway Examination: normal oropharyngeal airway and neck mobility. Respiratory Examination: clear to auscultation. CV Examination: normal. Prophylactic Antibiotics: The patient does not require prophylactic antibiotics. Prior Anticoagulants: The patient has taken no 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 or antiplatelet agents except for NSAID medication. ASA Grade Assessment: II - A patient with mild systemic disease. After reviewing the risks and benefits, the patient was deemed in satisfactory condition to undergo the procedure. The anesthesia plan was to use monitored anesthesia care (MAC). Immediately prior to administration of medications, the patient was re-assessed for adequacy to receive sedatives. The heart rate, respiratory rate, oxygen saturations, blood pressure, adequacy of pulmonary ventilation, and response to care were monitored throughout the procedure. The physical status of the patient was re-assessed after the procedure. After obtaining informed consent, the endoscope was passed under direct vision. Throughout the procedure, the patient's blood pressure, pulse, and oxygen saturations were monitored continuously. The Colonoscope was introduced through the mouth, and advanced to the second part of duodenum. The upper GI endoscopy was accomplished without difficulty. The patient tolerated the procedure well. Scope In: 7:24:56 AM Scope Out: 7:33:44 AM Total Procedure Duration Time 0 hours 8 minutes 48 seconds Findings: A mild Schatzki ring was found at the gastroesophageal junction. A medium-sized hiatal hernia was present. Multiple localized 5 mm erosions with active bleeding were found in the gastric fundus. Coagulation for hemostasis using heater probe was successful. Estimated blood loss was minimal. Three 8 mm angiodysplastic lesions with bleeding were found in the third portion of the duodenum. Coagulation for hemostasis using heater probe was successful. Estimated blood loss was minimal. Impression: - Mild Schatzki ring. - Medium-sized hiatal hernia. - Erosive gastropathy with active bleeding. Treated with a heater probe. - Three bleeding angiodysplastic lesions in the duodenum. Treated with a heater probe. - No specimens collected. Recommendation: - Discharge patient to home. - Resume previous diet. - Continue present medications. Procedure Code(s): --- Professional --- 14134, Esophagogastroduodenoscopy, flexible, transoral; with control of bleeding, any method CPT copyright 2021 [employer]. All rights reserved. The codes documented in this report are preliminary and upon label coder review may be revised to meet current compliance requirements. Hao Coles DO 07/30/2024 7:38:11 AM This report has been signed electronically. Number of Addenda: 0 Note Initiated On: 07/30/2024 7:16 AM
--- NOTE | 2024-07-30 07:38 | OP.CCLET_ITS ---
07/30/2024 Richard Morley MD [address] [place] [address] Re : Upper GI endoscopy procedure for Felton Schwarz Dear Dr. Morley This procedure was performed on July. My impressions and recommendations are as follows: Impressions : - Mild Schatzki ring. - Medium-sized hiatal hernia. - Erosive gastropathy with active bleeding. Treated with a heater probe. - Three bleeding angiodysplastic lesions in the duodenum. Treated with a heater probe. - No specimens collected. Recommendations : - Discharge patient to home. - Resume previous diet. - Continue present medications. My findings are described in the full procedure note, which is enclosed. If I can be of further assistance, please feel free to contact me at . Sincerely, Hao Coles, 07/30/2024 7:38:11 AM This report has been signed electronically.
--- NOTE | 2024-07-30 07:42 | PCM.POST.ANE ---
Anesthesia: Postop Eval I Current Vital Signs Temperature: 97.3 F Pulse Rate: 62 Blood Pressure: 139/75 Respiratory Rate: 16 Pulse Ox: 97 Oxygen Delivery Method: Room Air Assessment Airway patent: Yes Spontaneous unlabored respirations: Yes Mental status: Asleep nausea: No Vomiting: No Anesthesia Complication: No Fluid Hydration Crystalloid volume administer (ml): 400 Total IV fluid infused: 400 Progress Note Anesthesia document: Postop Eval 1 completed: Yes
--- NOTE | 2024-07-30 07:42 | PCM.POSTANE2 ---
Anesthesia Postop Eval I Sum Postop Eval Completion status Anesthesia document: Postop Eval 1 completed: Yes Anesthesia Postop Eval I Summary Anesthesia Postop Eval I Summary: Anesthesia Postop Eval I: Assessment Summary Airway patent Yes 07/30/24 07:42 [email or web address] Spontaneous unlabored Yes 07/30/24 07:42 [email or web address] respirations Mental status Asleep 07/30/24 07:42 [email or web address] nausea No 07/30/24 07:42 [email or web address] Vomiting No 07/30/24 07:42 [email or web address] Anesthesia Postop Eval I: Fluid Summary Crystalloid volume administer 400 07/30/24 07:42 [email or web address] (ml) Colloids volume administered ( ml) Blood Product volume administered (ml) Total IV fluid infused 400 07/30/24 07:42 [email or web address] Anesthesia Postop Eval I: Summary Notes Anesthesia Complication No 07/30/24 07:42 [email or web address] Anesthesia Complication Comment: Post-operative progress note Anesthesia: Postop Eval II Evaluation Mental status: Awake Pain Level: 0 nausea: No Vomiting: No
== END 2024-07-30 08:22 | disposition home or self-care (01) ==
LOC: EN 06:01 → AC 06:13
PROVIDERS: PCP Family Medicine Geriatric Medicine; Referring Provider Family Medicine Geriatric Medicine; Visit Provider Internal Medicine Gastroenterology
PROC: 0DJ08ZZ Inspection of Upper Intestinal Tract, Via Natural or Artificial Opening Endoscopic (ICD-10-PCS; CPT 43235; principal; 2024-07-30 07:10)
DX: D50.0 Iron deficiency anemia secondary to blood loss (chronic) (principal); I50.9 Heart failure, unspecified; I11.0 Hypertensive heart disease with heart failure; I48.0 Paroxysmal atrial fibrillation; Z87.891 Personal history of nicotine dependence; K44.9 Diaphragmatic hernia without obstruction or gangrene; Z85.47 Personal history of malignant neoplasm of testis; M10.9 Gout, unspecified; I25.10 Atherosclerotic heart disease of native coronary artery without angina pectoris; Z86.73 Personal history of transient ischemic attack (TIA), and cerebral infarction without residual deficits; Z95.0 Presence of cardiac pacemaker; G47.30 Sleep apnea, unspecified; Z99.89 Dependence on other enabling machines and devices; Z79.01 Long term (current) use 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s; E78.5 Hyperlipidemia, unspecified; Z79.899 Other long term (current) drug therapy; N40.0 Benign prostatic hyperplasia without lower urinary tract symptoms; Z96.651 Presence of right artificial knee joint; Z90.49 Acquired absence of other specified parts of digestive tract; K22.2 Esophageal obstruction; K31.9 Disease of stomach and duodenum, unspecified; K25.4 Chronic or unspecified gastric ulcer with hemorrhage
CPT/HCPCS: 43255; J7120; J2405

== ENCOUNTER → 2024-10-05 | Outpatient (CLI) | payer MEDICARE, OTHER, SELFPAY ==
[2024-10-07 07:08] LABS: Pancreatic Elastase, Fecal 196 (>200)
[2024-10-08 00:07] LABS: Calprotectin, Stool 116 ug/g (0-120)
== END | disposition home or self-care (01) ==
LOC: LABSPEC 08:16
PROVIDERS: PCP Family Medicine Geriatric Medicine; Visit Provider Student in an Organized Health Care Education/Training Program
DX: K58.9 Irritable bowel syndrome, unspecified (principal); R19.7 Diarrhea, unspecified
CPT/HCPCS: 82653; 83630; 83993

== ENCOUNTER → 2024-11-03 | Outpatient (CLI) | payer MEDICARE, OTHER, SELFPAY ==
--- NOTE | 2024-11-03 07:41 | US_ITS ---
STUDY: ABDOMINAL ULTRASOUND - RIGHT UPPER QUADRANT; ELASTOGRAPHY REASON FOR VISIT: Male, 84 years old. Abnormal liver enzymes. TECHNIQUE: Ultrasound evaluation of the right upper quadrant was performed with real-time and static barnett-scale imaging. Point quantification shear wave elastography was performed ([employer]). TECHNICAL QUALITY: Limited. Examination limited by bowel gas. COMPARISON: None. FINDINGS: Liver: The liver measures 16.7 cm. There is increased echogenicity consistent with fatty infiltration. The bile ducts are within normal limits. There is hepatic color flow. The direction of portal flow is hepatopetal. There is no demonstrated mass lesion. Median liver stiffness measured 7.4 kPa. Gallbladder: Normal distended gallbladder. The gallbladder wall measures 3 mm. There is a negative sonographic Gamez''s sign. There is no pericholecystic fluid. There are no gallstones. Common Bile Duct (C.B.D.): The common bile duct measures 4 mm. Pancreas: Limited visualization of the pancreas due to overlying bowel gas. Right Kidney: Normal size of the right kidney. The right kidney measures 12.7 cm x 6.4 cm x 5.6 cm. Normal renal cortex. The right cortex measures 1.4 cm. 2 renal cysts are seen. The larger cyst measures 2.2 cm x 2.57 x 2.5 cm. There is no right hydronephrosis. US/ABD Limited w/ Elastography IMPRESSION: 1. Liver stiffness measures 7.4 kPa compatible with F2-F3 (Mild to moderate liver fibrosis) Metavir score. 2. Fatty infiltration of the liver. 3. Right renal cysts. Electronically Signed: Zen Katz MD at 15:27 EST ,
== END | disposition home or self-care (01) ==
LOC: US 07:40
PROVIDERS: PCP Family Medicine Geriatric Medicine; Referring Provider Internal Medicine Medical Oncology; Visit Provider Internal Medicine Medical Oncology
DX: R17 Unspecified jaundice (principal); D50.9 Iron deficiency anemia, unspecified
CPT/HCPCS: 76705; 76981

== ENCOUNTER → 2024-11-12 | Outpatient (CLI) | payer MEDICARE, OTHER, SELFPAY ==
[2024-11-12 11:25] LABS: Absolute Lymphocyte Count 0.89 X10^3/uL (0.83-4.51); Absolute Neutrophil Count 2.7 X10^3/uL (2.0-7.7); Basophil# 0.04 X10^3/uL; Basophil% 0.9 % (0-1); Eosinophil# 0.13 X10^3/uL; Eosinophils% 3.1 % (0-5); Hematocrit 34.1 % (40-54); Hemoglobin 10.9 g/dL (13.0-16.5); Lymphocyte # 0.89 X10^3/ul (0.83-4.51); Lymphocyte % 20.9 % (19-41); Mean Corpuscular Hgb 32.2 pg (27.0-32.0); Mean Corpuscular Volume 100.6 fL (80-94); Mean Platelet Vol. 10.2 fl (6.2-12.0); Monocyte# 0.51 X10^3/uL; NRBC Flagged by Analyzer 0 % (0-5); Neutrophil # 2.67 X10^3/uL (2.7-7.7); Neutrophil % 62.9 % (47-70); Platelet Count 197 K/mm3 (150-450); RBC Distribution Width CV 13.3 % (11.6-14.6); RBC Distribution Width SD 49.4 fl (35.1-43.9); Red Blood Count 3.39 M/mm3 (4.6-6.2); White Blood Count 4.3 K/mm3 (4.4-11.0)
[2024-11-12 11:48] LABS: Vitamin D,25 Hydroxy 35.5 ng/mL
[2024-11-12 11:54] LABS: ALB/GLOB Ratio 1.1 RATIO (0.9-2.4); AST(SGOT) 16 U/L (15-37); Alanine Aminotransfer ALT/SGPT 15 U/L (16-61); Albumin, Serum 3.3 g/dL (3.2-5.0); Alkaline Phosphatase 115 U/L (45-117); Anion Gap 1 (5-15); BUN 24 mg/dL (7-18); BUN/Creat Ratio 19.2 RATIO (10-20); Calcium,Total 8.7 mg/dL (8.5-10.1); Chloride 109 mmol/L (98-107); Creatinine, Serum 1.25 mg/dL (0.70-1.30); EST Glomerular Filtration Rate 59 mL/min (>60); Est Glom Filt Rate - Afr Amer 71 mL/min (>60); Globulin 2.9 g/dL (2.2-4.2); Glucose 91 mg/dL (74-106); Potassium 4.6 mmol/L (3.5-5.1); Protein, Total 6.2 g/dL (6.4-8.2); Sodium Level 141 mmol/L (136-145); Thyroid Stim Hormone (TSH) 0.912 uIU/mL (0.358-3.740); Uric Acid 3.2 mg/dL (3.5-7.2)
== END | disposition home or self-care (01) ==
LOC: POLAB3 11:14
PROVIDERS: PCP Family Medicine Geriatric Medicine; Visit Provider Family Medicine Geriatric Medicine
DX: I10 Essential (primary) hypertension (principal); M10.9 Gout, unspecified; E55.9 Vitamin D deficiency, unspecified
CPT/HCPCS: 36415; 80053; 82306; 84443; 84550; 85025

== ENCOUNTER 2025-04-28 09:20 | Day surgery (SDC) | payer MEDICARE, OTHER, SELFPAY ==
--- NOTE | 2025-04-26 12:28 | PAT.ANESEVAL ---
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 When Was Last Pacemaker Check 10/06/19 05/12/20 07:57 QUESTION #4 FULL TEXT: You/Your Family Experience fever (hyperthermia) with Anesthesia Last Oral Intake Last Oral intake: Last Oral Intake NPO since Meds taken in AM with sips of water? 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 Female No 04/23/25 13:20 HX of Motion Sickness No 04/23/25 13:20 HX of N/V After Surgery No 04/23/25 13:20 Non-Smoker Yes 04/23/25 13:20 Duration of Surgery greater No 04/23/25 13:20 than 60 minutes Number of Risk Factors 1 04/23/25 13:20 PONV Score Low Risk 04/23/25 13:20 Height & Weight Height & Weight: Anesthesia: Height & Weight Height 5 ft 10 in 03/23/25 14:34 Respiratory Assessment Respiratory Assessment - power station operator: Respiratory Tract Infection Hx - power station operator Hx Respiratory Tract Infection No 04/23/25 13:20 STOP Sleep Apnea STOP Sleep Apnea - power station operator: STOP Sleep Apnea - power station operator Hx Hypertension Yes 04/23/25 13:20 Hx Sleep Apnea Yes 04/23/25 13:20 CPAP Yes: NON COMPLIANT 04/23/25 13:20 BIPAP No 04/23/25 13:20 Do you snore loudly (louder than talking or can be heard Do you often feel tired/ fatigued/ sleepy during daytime? Has anyone observed you stop breathing during sleep? STOP Results Positive 04/23/25 13:20 QUESTION #5 FULL TEXT : Do you snore loudly (louder than talking or can be heard through closed doors)? 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 Specify any problems Hx of Preganancy in last 3 N/A 04/23/25 13:20 Months Nurse Filling Out Transfusion JZOLLINGE 04/23/25 13:20 & Questions: Date: 04/23/25 04/23/25 13:20 Time: 13:22 04/23/25 13:20 Patient unable to answer at this time (ie. confused, unrespo /Reproduction History /Reproductive History - power station operator: /Reproductive Hx- power station operator Hx Now No 04/23/25 13:20 Gestational Age (in weeks): EDC: Hx Hx Para Hx Section SAB No 04/23/25 13:20 PFSH Medical History (Updated 04/23/25 @ 13:20 by Jessica Molina) Loss of hearing Anemia due to chronic blood loss Pacemaker Testicle cancer Walker as ambulation aid Prostate disease Low iron Excessive bleeding Restless legs CPAP (continuous positive airway pressure) dependence History of CHF (congestive heart failure) Chest pain SMITH (dyspnea on exertion) Biventricular implantable cardioverter-defibrillator (ICD) in situ Over 65 years old COVID-19 Acute on chronic blood loss anemia Iron deficiency anemia due to chronic blood loss History of blood transfusion Heme + stool Osteoarthritis Physical debility BPH (benign prostatic hyperplasia) Chronic renal failure, stage 3a Preoperative cardiovascular examination History of stress test Gout Hx of renal calculi Anemia Back pain History of IBS Shortness of breath on exertion Leg cramps History of edema Hypertension History of echocardiogram Cardiology follow-up encounter Atherosclerotic heart disease of [place] coronary artery without angina pectoris Premature ventricular contraction Wears glasses Wears dentures Cancer Bruising Arthritis Ambulates with cane History of renal disease Stroke/cerebrovascular accident Gastric reflux Former smoker History of cardiac pacemaker History of wrist fracture Iron deficiency anemia Essential hypertension Left bundle branch block Sleep apnea History of stroke Hiatal hernia GERD (gastroesophageal reflux disease) 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 Biventricular automatic implantable cardioverter defibrillator in situ Hyperlipidemia Paroxysmal atrial fibrillation Sick sinus syndrome Dilated cardiomyopathy Home Medications ?Medication ?Instructions ?Recorded ?Last Taken ?Type allopurinol 300 mg tablet 300 mg PO DAILY Check with primary 09/20/17 08/06/21 History doctor carvedilol 6.25 mg tablet 6.25 mg PO BID blood pressure 08/08/21 07/29/24 22:00 History melatonin 10 mg tablet,extended 10 mg PO QHS 12/25/23 Unknown History release tamsulosin 0.4 mg capsule 0.4 mg PO DAILY Retention 01/22/24 Unknown History gabapentin 100 mg capsule 100 mg PO QHS 06/29/24 Unknown History apixaban 5 mg tablet (Eliquis) 5 mg PO BID 08/31/24 Unknown History colestipol 1 gram tablet 2 g (2 x 1 gram) PO ONCE #60 tabs 09/03/24 Unknown Rx jihmzm-[id number]-riwjleo 2 cap PO QAC #300 caps 10/16/24 Unknown Rx 40,000-126,000-168,000 unit capsule, delay rel (Zenpep) zinc sulfate 50 mg zinc (220 mg) 50 mg PO QDAY 10/26/24 Unknown History capsule (Orazinc) atorvastatin 20 mg tablet 20 mg PO QHS for cholesterol #90 11/19/24 Unknown Rx TABLETS evskwp-sfwbhaho-elvvwpr 1 cap PO .QD 04/23/25 Unknown History 3,000-10,000-14,000 unit capsule,delayed rel (Zenpep) Allergy/AdvReac Type Severity Reaction Status Date / Time No Known Allergies Allergy Verified 04/23/25 13:05 Family History Father , Age 59, gallbladder complications No problems noted. Mother , Age 85 Thyroid disorder Brother , Age 68 Cancer Brother CVA (cerebral vascular accident) seizure disorder post fall injury Surgical History History of total right knee replacement H/O wrist surgery H/O hemorrhoidectomy H/O repair of rotator cuff Deficient knowledge of pacemaker insertion History of esophagogastroduodenoscopy (EGD) (~11/2023) Status post total right knee replacement History of cardiac catheterization Hx of colonoscopy (~11/2023) History of appendectomy S/P cataract surgery History of bunionectomy History of testicular surgery History of left heart catheterization Social History Smoking Status: Former smoker quit date: 11/25/94 alcohol intake: never substance use type: does not use Audit: Pertinent Findings HISTORY of Pertinent Findings History of Pertinent Findings: Felton Schwarz is an 84-year-old white male who has a history of underlying CAD-nonangiographically significant, non-CAD related cardiomyopathy, atrial fibrillation, sick sinus syndrome, status post biventricular ICD, history of peripheral emboli Pertinent Findings EKG Perinent findings: AV dual-paced rhythm with prolonged AV conduction Biventricular pacemaker detected Abnormal ECG Confirmed by FRANCIE FRENCH, JAKE ([id number]), marketing editor OZZIE CELIS ([id number]) on 07/27/2021 9:11:36 AM Echo (EF%) pertinent findings: ECHOCARDIOGRAM 04/19/23: Interpretation Summary Normal LV size. Mild concentric left ventricular hypertrophy. Left ventricular systolic function is lower limits of normal. The estimated ejection fraction is 53 %. The left atrium is moderately enlarged. Contrast injection was performed. Recommendation Anesthesia Recommendation Anesthesia recommendation: OPTIMIZED for anesthesia
[2025-04-28 09:46] VITALS: BP 169/70; PULSE 61; RESP 18; TEMP 36.5; O2SAT 99; BMI 30.5
[2025-04-28] MEDS: Lactated Ringers 1,000 ML 15 ML IV (10:00)
--- NOTE | 2025-04-28 10:03 | PCM.PRE.AN2 ---
ASA Classification* ASA Classification ASA Classification: 4 (CAD, Afib, CHF, ICD, GERD, HTN, HARMEET, biventricular ICD. Recommend slow induction. ) Assessment & Plan Anesthesia* Anesthesia Assessment Anesthesia Assessment: Discussed sedation and/or anesthesia options, risks, benefits, and alternatives with patient/parents/legal guardian/POA. Questions invited. The patient/parents/legal guardian/POA seems to understand and agrees to proceed with anesthesia plan. Reviewed the physical assessment, medical history, allergy history and patient home medications list prior to surgery/procedure/anesthetic and documented any changes. Performed airway and anesthesia risk assessments. Anesthesia Type Anesthesia Type: General History Source History Obtained from:: Patient and Chart Anesthesia Focused Assessment* Temperature: 97.7 F Pulse Rate: 61 Blood Pressure: 169/70 Respiratory Rate: 18 Pulse Ox: 99 Oxygen Delivery Method: Room Air Airway Assessment Mouth opens: >3 cm Mallampati Score: II Focused Labs Anesthesia Preop lab: CBC WBC 4.5 K/mm3 (4.4-11.0) 03/23/25 13:48 03/23/25 RBC 3.32 M/mm3 (4.6-6.2) L 03/23/25 13:48 03/23/25 Hgb 10.5 g/dL (13.0-16.5) L 03/23/25 13:48 03/23/25 Hct 32.9 % (40-54) L 03/23/25 13:48 03/23/25 Plt Count 182 K/mm3 (150-450) 03/23/25 13:48 03/23/25 CHEMISTRY Potassium 4.5 mmol/L (3.3-5.1) 03/23/25 13:48 03/23/25 Sodium 138 mmol/L (133-145) 03/23/25 13:48 03/23/25 Magnesium 2.1 mg/dL (1.5-2.2) 03/23/25 13:48 03/23/25 Phosphorus 1.9 mg/dL (2.7-4.5) L 03/23/25 13:48 03/23/25 BUN 18 mg/dL (4-19) 03/23/25 13:48 03/23/25 Creatinine 1.21 mg/dL (0.70-1.20) H 03/23/25 13:48 03/23/25 Glucose 97 mg/dL (70-99) 03/23/25 13:48 03/23/25 POC Glucose 93 mg/dL (70-110) 08/07/21 08:41 08/07/21 TSH 0.912 uIU/mL (0.358-3.740) 11/12/24 11:14 11/12/24 COAG PT 22.1 SECONDS (11.7-14.9) H 07/26/21 09:43 07/26/21 Pre-Assessment Diagnosis/Proposed Procedure Planned Operative Procedure(s): EGD Anesthesia History Anesthesia History - 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 When Was Last Pacemaker Check 10/06/19 05/12/20 07:57 QUESTION #4 FULL TEXT: You/Your Family Experience fever (hyperthermia) with Anesthesia Last Oral Intake Last Oral intake: Last Oral Intake NPO since 18:00 04/28/25 09:46 Meds taken in AM with sips of No 04/28/25 09:46 water? Meds patient instructed to take am of surgery PONV PONV - information technology officer: PONV - information technology officer Female No 04/23/25 13:20 HX of Motion Sickness No 04/23/25 13:20 HX of N/V After Surgery No 04/23/25 13:20 Non-Smoker Yes 04/23/25 13:20 Duration of Surgery greater No 04/23/25 13:20 than 60 minutes Number of Risk Factors 1 04/23/25 13:20 PONV Score Low Risk 04/23/25 13:20 Height & Weight Height & Weight: Anesthesia: Height & Weight Height 5 ft 10 in 04/28/25 09:46 Weight: 96.615 kg 06/04/25 09:46 Body Mass Index (BMI) 30.5 04/28/25 09:46 Respiratory Assessment Respiratory Assessment - information technology officer: Respiratory Tract Infection Hx - information technology officer Hx Respiratory Tract Infection No 04/23/25 13:20 STOP Sleep Apnea STOP Sleep Apnea - information technology officer: STOP Sleep Apnea - information technology officer Hx Hypertension Yes 04/23/25 13:20 Hx Sleep Apnea Yes 04/23/25 13:20 CPAP Yes: NON COMPLIANT 04/23/25 13:20 BIPAP No 04/23/25 13:20 Do you snore loudly (louder than talking or can be heard Do you often feel tired/ fatigued/ sleepy during daytime? Has anyone observed you stop breathing during sleep? STOP Results Positive 04/23/25 13:20 QUESTION #5 FULL TEXT : Do you snore loudly (louder than talking or can be heard through closed doors)? 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 Specify any problems Hx of Preganancy in last 3 N/A 04/23/25 13:20 Months Nurse Filling Out Transfusion JZOLLINGE 04/23/25 13:20 & Questions: Date: 04/23/25 04/23/25 13:20 Time: 13:22 04/23/25 13:20 Patient unable to answer at this time (ie. confused, unrespo /Reproduction History /Reproductive History - information technology officer: /Reproductive Hx- information technology officer Hx Now No 04/23/25 13:20 Gestational Age (in weeks): EDC: Hx Hx Para Hx Section SAB No 04/23/25 13:20 Active Medications Active Medications: Current Medications Generic Name Dose Route Start Last Admin Trade Name Park PRN Reason Stop Dose Admin Lactated Ringer's 1,000 mls @ 15 mls/hr 04/28/25 09:30 04/28/25 10:00 IV 15 mls/hr .Q48H NADIYA Administration PFSH Medical History (Updated 04/23/25 @ 13:20 by Jessica Molina) Loss of hearing Anemia due to chronic blood loss Pacemaker Testicle cancer Walker as ambulation aid Prostate disease Low iron Excessive bleeding Restless legs CPAP (continuous positive airway pressure) dependence History of CHF (congestive heart failure) Chest pain SMITH (dyspnea on exertion) Biventricular implantable cardioverter-defibrillator (ICD) in situ Over 65 years old COVID-19 Acute on chronic blood loss anemia Iron deficiency anemia due to chronic blood loss History of blood transfusion Heme + stool Osteoarthritis Physical debility BPH (benign prostatic hyperplasia) Chronic renal failure, stage 3a Preoperative cardiovascular examination History of stress test Gout Hx of renal calculi Anemia Back pain History of IBS Shortness of breath on exertion Leg cramps History of edema Hypertension History of echocardiogram Cardiology follow-up encounter Atherosclerotic heart disease of [place] coronary artery without angina pectoris Premature ventricular contraction Wears glasses Wears dentures Cancer Bruising Arthritis Ambulates with cane History of renal disease Stroke/cerebrovascular accident Gastric reflux Former smoker History of cardiac pacemaker History of wrist fracture Iron deficiency anemia Essential hypertension Left bundle branch block Sleep apnea History of stroke Hiatal hernia GERD (gastroesophageal reflux disease) Testicular cancer 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 intermediate 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 Biventricular automatic implantable cardioverter defibrillator in situ Hyperlipidemia Paroxysmal atrial fibrillation Sick sinus syndrome Dilated cardiomyopathy Home Medications ?Medication ?Instructions ?Recorded ?Last Taken ?Type allopurinol 300 mg tablet 300 mg PO DAILY Check with primary 09/20/17 04/27/25 History doctor carvedilol 6.25 mg tablet 6.25 mg PO BID blood pressure 08/08/21 04/27/25 History melatonin 10 mg tablet,extended 10 mg PO QHS 12/25/23 04/27/25 History release tamsulosin 0.4 mg capsule 0.4 mg PO DAILY Retention 01/22/24 04/27/25 History gabapentin 100 mg capsule 100 mg PO QHS 06/29/24 04/27/25 History apixaban 5 mg tablet (Eliquis) 5 mg PO BID 08/31/24 04/25/25 History colestipol 1 gram tablet 2 g (2 x 1 gram) PO ONCE #60 tabs 09/03/24 04/27/25 Rx [id number] 2 cap PO QAC #300 caps 10/16/24 04/26/25 Rx 40,000-126,000-168,000 unit capsule, delay rel (Zenpep) zinc sulfate 50 mg zinc (220 mg) 50 mg PO QODAY 10/26/24 04/26/25 History capsule (Orazinc) atorvastatin 20 mg tablet 20 mg PO QHS for cholesterol #90 11/19/24 04/27/25 Rx TABLETS [id number] 1 cap PO .QD 04/23/25 04/26/25 History 3,000-10,000-14,000 unit capsule,delayed rel (Zenpep) Allergy/AdvReac Type Severity Reaction Status Date / Time No Known Allergies Allergy Verified 04/28/25 09:41 Family History Father , Age 59, gallbladder complications No problems noted. Mother , Age 85 Thyroid disorder Brother , Age 68 Cancer Brother CVA (cerebral vascular accident) seizure disorder post fall injury Surgical History History of total right knee replacement H/O wrist surgery H/O hemorrhoidectomy H/O repair of rotator cuff Deficient knowledge of pacemaker insertion History of esophagogastroduodenoscopy (EGD) (~11/2023) Status post total right knee replacement History of cardiac catheterization Hx of colonoscopy (~11/2023) History of appendectomy S/P cataract surgery History of bunionectomy History of testicular surgery History of left heart catheterization Social History Smoking Status: Former smoker quit date: 11/25/94 alcohol intake: never substance use type: does not use Review of Systems (Anesthesia) ROS Narrative System reviewed and no additional complaints, except as documented.
[2025-04-28 10:07] VITALS: BP 169/70; PULSE 61; RESP 18; TEMP 36.5; O2SAT 99
--- NOTE | 2025-04-28 10:45 | EGD_PTH ---
PATIENT: MIKE RAMOS LOC: EN U#:[id number] AGE/SX: 84/M ROOM: RE04/28/[address]: Dr. Hao Coles DO : 1940 BED: DIS: 04/28/2025 SPEC #: [id number] RECD: 04/28/25 12:46 STATUS: LEOBARDO REHugh #: [id number] MARGA: 04/28/25 10:[address]: Hao Coles DEPT: SURGICAL PATHOLOGY RECD BY: Yair Foster ENTERED: 04/28/25 13:15 SP TYPE: EGD BIOPSY MARIE DR: Dr. Richard Morley MD Tissues: A - Gastric mucous membrane B - Duodenum, NOS C - Esophagus, NOS Procedures: Immunohistochemical Stains Surgery Specimen Level IV HEADER OPERATION: EGD with biopsy PRE-OP DIAGNOSIS: Abdominal pain, iron deficiency anemia, heme + stool, anemia due to chronic blood loss TISSUE SUBMITTED: A- Gastric body biopsy, B- Duodenal polyp biopsy, C- Distal esophagus biopsy MICROSCOPIC DIAGNOSIS A. Stomach, gastric body, biopsies: * Oxyntic mucosa with chronic inflammation * An immunohistochemical stain for Helicobacter pylori is positive. B. Small intestine, duodenal polyp: * Inflammatory polyp C. Esophagus, distal: * Benign squamous epithelium * Oxynto-cardiac mucosa with chronic inflammation * No goblet cell metaplasia is identified MICROSCOPIC DESCRIPTION Slides are reviewed. All matched controls reacted appropriately. These tests were developed and their performance characteristics determined by [facility]. They may not have been cleared or approved by the U.S. Food and Drug Administration. The FDA has determined that such clearance or approval is not necessary. The above immunohistochemical/dualISH markers are ordered and reviewed by the Pathologist. GROSS DESCRIPTION A. Received in formalin in a container labeled with the patient's name, date of , and gastric body biopsy for H. pylori and path are multiple small philippe-pink fragments of mucosal tissue measuring 0.8 x 0.4 x 0.2 cm in aggregate. Submitted in toto in A1. B. Received in formalin in a container labeled with the patient's name, date of , and duodenal polyp biopsy are 2 philippe-pink fragments of mucosal tissue measuring 0.3 x 0.3 x 0.3 cm and 0.4 x 0.4 x 0.2 cm. Submitted in toto in B1. C. Received in formalin in a container labeled with the patient's name, date of , and distal esophagus biopsy are multiple philippe-pink fragments of mucosal tissue measuring 0.8 x 0.5 x 0.3 cm in aggregate. Submitted in toto in C1. SMB 04-28-2025 CPT:84778n9,28316
--- NOTE | 2025-04-28 11:17 | PCM.HP.STD ---
[facility] - General General Date of Admission: 04/28/25 Date of Service: 04/28/25 Chief Complaint: Diarrhea, abdominal pain and fecal occult positive stools HPI Narrative MIKE RAMOS, is a 84 M who presents with the chief Complaint: stool urgency . BGI established June 2024 with anemia and alternaing bowels. Pill Cam 8.8.24 GEJ with abnormal tissue. Portal gastropathy with thickened gastric folds. Multiple non-bleeding gastric ulcers. Two small non-bleeding AVMs visualized in the small bowel. Possible AVM in the colon. EGD 9..24 Mild Schatzki ring. Medium-sized hiatal hernia. Erosive gastropathy with active bleeding. Treated with a heater probe. Three bleeding angiodysplastic lesions in the duodenum. Treated with a heater probe. No specimens collected. Last OV 2 Continues with loose stools. Denies constipation. Colestipol and Zenpep have been helpful OV 3 Pt advised to f/u with GI by oncologist Dr. Avila for positive FOBT. Continues with stool urgency. Having difficulty taking colestipol as he cannot take with his other medications. [facility] Medical History Loss of hearing Anemia due to chronic blood loss Pacemaker Testicle cancer Walker as ambulation aid Prostate disease Low iron Excessive bleeding Restless legs CPAP (continuous positive airway pressure) dependence History of CHF (congestive heart failure) Chest pain SMITH (dyspnea on exertion) Biventricular implantable cardioverter-defibrillator (ICD) in situ Over 67 years old COVID-19 Acute on chronic blood loss anemia Iron deficiency anemia due to chronic blood loss History of blood transfusion Heme + stool Osteoarthritis Physical debility BPH (benign prostatic hyperplasia) Chronic renal failure, stage 3a Preoperative cardiovascular examination History of stress test Gout Hx of renal calculi Anemia Back pain History of IBS Shortness of breath on exertion Leg cramps History of edema Hypertension History of echocardiogram Cardiology follow-up encounter Atherosclerotic heart disease of [place] coronary artery without angina pectoris Premature ventricular contraction Wears glasses Wears dentures Cancer Bruising Arthritis Ambulates with cane History of renal disease Stroke/cerebrovascular accident Gastric reflux Former smoker History of cardiac pacemaker History of wrist fracture Iron deficiency anemia Essential hypertension Left bundle branch block Sleep apnea History of stroke Hiatal hernia GERD (gastroesophageal reflux disease) Testicular cancer shelter current use 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 Biventricular automatic implantable cardioverter defibrillator in situ Hyperlipidemia Paroxysmal atrial fibrillation Sick sinus syndrome Dilated cardiomyopathy Home Medications ?Medication ?Instructions ?Recorded ?Last Taken ?Type allopurinol 300 mg tablet 300 mg PO DAILY Check with primary 09/20/17 04/27/25 History doctor carvedilol 6.25 mg tablet 6.25 mg PO BID blood pressure 08/08/21 04/27/25 History melatonin 10 mg tablet,extended 10 mg PO QHS 12/25/23 04/27/25 History release tamsulosin 0.4 mg capsule 0.4 mg PO DAILY Retention 01/22/24 04/27/25 History gabapentin 100 mg capsule 100 mg PO QHS 06/29/24 04/27/25 History apixaban 5 mg tablet (Eliquis) 5 mg PO BID 08/31/24 04/25/25 History colestipol 1 gram tablet 2 g (2 x 1 gram) PO ONCE #60 tabs 09/03/24 04/27/25 Rx [id number] 2 cap PO QAC #300 caps 10/16/24 04/26/25 Rx 40,000-126,000-168,000 unit capsule, delay rel (Zenpep) zinc sulfate 50 mg zinc (220 mg) 50 mg PO QODAY 10/26/24 04/26/25 History capsule (Orazinc) atorvastatin 20 mg tablet 20 mg PO QHS for cholesterol #90 11/19/24 04/27/25 Rx TABLETS [id number] 1 cap PO .QD 04/23/25 04/26/25 History 3,000-10,000-14,000 unit capsule,delayed rel (Zenpep) Allergy/AdvReac Type Severity Reaction Status Date / Time No Known Allergies Allergy Verified 04/28/25 09:41 Family History Father , Age 59, gallbladder complications No problems noted. Mother , Age 85 Thyroid disorder Brother , Age 68 Cancer Brother CVA (cerebral vascular accident) seizure disorder post fall injury Surgical History History of total right knee replacement H/O wrist surgery H/O hemorrhoidectomy H/O repair of rotator cuff Deficient knowledge of pacemaker insertion History of esophagogastroduodenoscopy (EGD) (~11/2023) Status post total right knee replacement History of cardiac catheterization Hx of colonoscopy (~11/2023) History of appendectomy S/P cataract surgery History of bunionectomy History of testicular surgery History of left heart catheterization Social History Smoking Status: Former smoker quit date: 11/25/94 alcohol intake: never substance use type: does not use ROS Constitutional Constitutional: Denies fatigue, fever(s), poor appetite, weight gain or weight loss Gastrointestinal Gastrointestinal: Denies belching, bloating, change in bowel habits, change in stool character, chewing difficulty, coffee ground emesis, constipation, cramping, diarrhea, dyspepsia, dysphagia, early satiety, excessive flatus, fecal incontinence, heartburn, hematemesis, hematochezia, hemorrhoids, loose stools, melena, nausea, odynophagia, rectal bleeding, tenesmus, vomiting or weight changes Vital Signs Vital Signs Vital Signs: 04/28/25 09:44 04/28/25 09:46 04/28/25 10:07 Temperature 97.7 F L 97.7 F L Temperature Source Temporal Pulse Rate 61 61 Respiratory Rate 18 18 Respiratory Pattern Normal Blood Pressure 169/70 H 169/70 H Blood Pressure Mean 103 Blood Pressure Source Monitor Blood Pressure Position Semi-Fowlers Blood Pressure Location Left Arm Pulse Ox 99 99 Oxygen Delivery Method Room Air Room Air Weight Weight: 213 lb Body Mass Index (BMI) 30.5 Physical Exam Const alert, oriented x3, no apparent distress and healthy appearing General Appearance: cooperative GI normal to inspection, nondistended, normoactive bowel sounds, soft to palpation, non-tender and non-distended Percussion: normal to percussion Rectal Exam: deferred Assessment & Plan Assessment/Plan (1) Abdominal pain: (2) Iron deficiency anemia: QUALIFIERS: Iron deficiency anemia type: unspecified iron deficiency Qualified Code(s): D50.9 - Iron deficiency anemia, unspecified (3) Heme + stool: (4) Anemia due to chronic blood loss: (5) Diarrhea: PLAN: Plan t Assessment and Plan Assessment and Plan (1) Diarrhea: Status: Acute Plan: This is an 84 yo male pt here today for f/u regarding his chronic anemia and stool urgency. He was seen by Dr. Avila and had a positive FOBT. He continues to have anemia but this is stable. His last EGD was in Jul 2024 which bleeding gastropathy and bleeding AVMs. He will undergo repeat to ensure he is no longer bleeding. He declines colonoscopy. Last two colonoscopies were without any sings of colitis or bleeding. He will start taking colestipol with his Creon at lunch to decrease his stool urgency. -EGD -Continue colestipol -f/u after procedure (2) Anemia due to chronic blood loss: Status: Chronic
--- NOTE | 2025-04-28 11:48 | PCM.POST.ANE ---
Anesthesia: Postop Eval I Current Vital Signs Temperature: 98.6 F Pulse Rate: 62 Blood Pressure: 150/72 Respiratory Rate: 18 Pulse Ox: 99 Assessment Airway patent: Yes Spontaneous unlabored respirations: Yes nausea: No Vomiting: No Anesthesia Complication: No Fluid Hydration Crystalloid volume administer (ml): 300 Total IV fluid infused: 300 Progress Note Anesthesia document: Postop Eval 1 completed: Yes
[2025-04-28 11:49] VITALS: BP 142/72; BP 150/72; BP 169/70; PULSE 62; PULSE 67; RESP 18; TEMP 37; O2SAT 98; O2SAT 99
--- NOTE | 2025-04-28 11:50 | OP.EGD_ITS ---
Patient Name: Felton Schwarz Procedure Date: 04/28/2025 11:24 AM Date of : 1940 Age: 84 Procedure: Upper GI endoscopy Indications: Epigastric abdominal pain, Functional Dyspepsia, Heartburn, Follow-up of Winter's esophagus Providers: Hao Coles DO Referring MD: Richard Morley MD Medicines: Monitored Anesthesia Care Patient Profile: This is an 84 year old male. Refer to note in patient chart for documentation of history and physical. Patient has symptoms of chronic epigastric abdominal pain, chronic dyspepsia and chronic heartburn. Complications: No immediate complications. Procedure: Pre-Anesthesia Assessment: - Prior to the procedure, a History and Physical was performed, and patient medications and allergies were reviewed. The patient is competent. The risks and benefits of the procedure and the sedation options and risks were discussed with the patient. All questions were answered and informed consent was obtained. Patient identification and proposed procedure were verified by the physician in the pre-procedure area. Mental Status Examination: alert and oriented. Airway Examination: normal oropharyngeal airway and neck mobility. Respiratory Examination: clear to auscultation. CV Examination: normal. Prophylactic Antibiotics: The patient does not require prophylactic antibiotics. Prior Anticoagulants: The patient has taken no 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 or antiplatelet agents except for NSAID medication. ASA Grade Assessment: II - A patient with mild systemic disease. After reviewing the risks and benefits, the patient was deemed in satisfactory condition to undergo the procedure. The anesthesia plan was to use monitored anesthesia care (MAC). Immediately prior to administration of medications, the patient was re-assessed for adequacy to receive sedatives. The heart rate, respiratory rate, oxygen saturations, blood pressure, adequacy of pulmonary ventilation, and response to care were monitored throughout the procedure. The physical status of the patient was re-assessed after the procedure. After obtaining informed consent, the endoscope was passed under direct vision. Throughout the procedure, the patient's blood pressure, pulse, and oxygen saturations were monitored continuously. The Endoscope was introduced through the mouth, and advanced to the third part of the duodenum. Small bowel enteroscopy was deemed necessary. The upper GI endoscopy was accomplished without difficulty. The patient tolerated the procedure well. Scope In: 11:34:29 AM Scope Out: 11:41:07 AM Total Procedure Duration Time 0 hours 6 minutes 38 seconds Findings: The Z-line was irregular and was found 40 cm from the incisors. Biopsies were taken with a cold forceps for histology. Verification of patient identification for the specimen was done. Estimated blood loss was minimal. A small hiatal hernia was present. Patchy erythematous mucosa without bleeding was found in the stomach. Biopsies were taken with a cold forceps for histology. Verification of patient identification for the specimen was done. Estimated blood loss was minimal. Biopsies were taken with a cold forceps for Helicobacter pylori testing. Verification of patient identification for the specimen was done. Estimated blood loss was minimal. A single 5 mm sessile polyp with no bleeding was found in the duodenal bulb. The polyp was removed with a jumbo cold forceps. Resection and retrieval were complete. Verification of patient identification for the specimen was done. Estimated blood loss was minimal. Impression: - Z-line irregular, 40 cm from the incisors. Biopsied. - Small hiatal hernia. - Erythematous mucosa in the stomach. Biopsied. - A single duodenal polyp. Resected and retrieved. Recommendation: - Discharge patient to home. - Resume previous diet. - Patient medication history reviewed. Patient is appropriately not taking any medications. - Await pathology results. Procedure Code(s): --- Professional --- 98653, Small intestinal endoscopy, enteroscopy beyond second portion of duodenum, not including ileum; with biopsy, single or multiple CPT copyright 2021 [employer] [place] [employer]. All rights reserved. The codes documented in this report are preliminary and upon senior radiation therapist review may be revised to meet current compliance requirements. Hao Coles DO 04/28/2025 11:50:19 AM This report has been signed electronically. Number of Addenda: 0 Note Initiated On: 04/28/2025 11:24 AM
--- NOTE | 2025-04-28 11:50 | OP.CCLET_ITS ---
04/28/2025 Richard Morley MD [address] [place] [address] Re : Upper GI endoscopy procedure for Felton cShwarz Dear Dr. Morley This procedure was performed on Monday, April 28, 2025. My impressions and recommendations are as follows: Impressions : - Z-line irregular, 40 cm from the incisors. Biopsied. - Small hiatal hernia. - Erythematous mucosa in the stomach. Biopsied. - A single duodenal polyp. Resected and retrieved. Recommendations : - Discharge patient to home. - Resume previous diet. - Patient medication history reviewed. Patient is appropriately not taking any medications. - Await pathology results. My findings are described in the full procedure note, which is enclosed. If I can be of further assistance, please feel free to contact me at . Sincerely, Hao Coles, 04/28/2025 11:50:19 AM This report has been signed electronically.
[2025-04-28 11:55] VITALS: BP 143/86; BP 169/70; PULSE 62; RESP 16; O2SAT 99
[2025-04-28 12:00] VITALS: BP 155/78; BP 169/70; PULSE 67; RESP 18; TEMP 36.9; O2SAT 98
[2025-04-28 12:07] VITALS: BP 169/70
--- NOTE | 2025-04-28 15:38 | POSTOPAN2_ITS ---
Anesthesia Postop Eval I Sum Postop Eval Completion status Anesthesia document: Postop Eval 1 completed: Yes Anesthesia Postop Eval I Summary Anesthesia Postop Eval I Summary: Anesthesia Postop Eval I: Assessment Summary Airway patent Yes 04/28/25 11:49 [email or web address] [email or web address] Spontaneous unlabored Yes 04/28/25 11:49 [email or web address] [email or web address] respirations Mental status nausea No 04/28/25 11:49 [email or web address] MAN.[email or web address] Vomiting No 04/28/25 11:49 [email or web address] [email or web address] Anesthesia Postop Eval I: Fluid Summary Crystalloid volume administer 300 04/28/25 11:49 [email or web address] [email or web address] (ml) Colloids volume administered ( ml) Blood Product volume administered (ml) Total IV fluid infused 300 04/28/25 11:49 [email or web address] [email or web address] Anesthesia Postop Eval I: Summary Notes Anesthesia Complication No 04/28/25 11:49 [email or web address] MAN.[email or web address] Anesthesia Complication Comment: Post-operative progress note Anesthesia: Postop Eval II Evaluation Mental status: Awake Pain Level: 0 nausea: No Vomiting: No Complications Anesthesia Complication: No
--- NOTE | 2025-04-28 15:38 | PCM.POSTANE2 ---
Anesthesia Postop Eval I Sum Postop Eval Completion status Anesthesia document: Postop Eval 1 completed: Yes Anesthesia Postop Eval I Summary Anesthesia Postop Eval I Summary: Anesthesia Postop Eval I: Assessment Summary Airway patent Yes 04/28/25 11:49 [email or web address] Spontaneous unlabored Yes 04/28/25 11:49 GUIDE [email or web address] respirations Mental status nausea No 04/28/25 11:49 GUIDE [email or web address] Vomiting No 04/28/25 11:49 GUIDE [email or web address] Anesthesia Postop Eval I: Fluid Summary Crystalloid volume administer 300 04/28/25 11:49 GUIDE [email or web address] (ml) Colloids volume administered ( ml) Blood Product volume administered (ml) Total IV fluid infused 300 04/28/25 11:49 GUIDE [email or web address] Anesthesia Postop Eval I: Summary Notes Anesthesia Complication No 04/28/25 11:49 GUIDE [email or web address] Anesthesia Complication Comment: Post-operative progress note Anesthesia: Postop Eval II Evaluation Mental status: Awake Pain Level: 0 nausea: No Vomiting: No Complications Anesthesia Complication: No
== END 2025-04-28 12:47 | disposition home or self-care (01) ==
LOC: EN 09:23 → AC 09:23
PROVIDERS: PCP Family Medicine Geriatric Medicine; Referring Provider Family Medicine Geriatric Medicine; Visit Provider Internal Medicine Gastroenterology
PROC: 0DJ08ZZ Inspection of Upper Intestinal Tract, Via Natural or Artificial Opening Endoscopic (ICD-10-PCS; CPT 43235; principal; 2025-04-28 10:40)
DX: D50.0 Iron deficiency anemia secondary to blood loss (chronic) (principal); N18.30 Chronic kidney disease, stage 3 unspecified; K22.70 Barrett's esophagus without dysplasia; R12 Heartburn; K31.7 Polyp of stomach and duodenum; R19.7 Diarrhea, unspecified; Z87.891 Personal history of nicotine dependence; K44.9 Diaphragmatic hernia without obstruction or gangrene; Z86.16 Personal history of COVID-19; Z79.01 Long term (current) use 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s; Z86.73 Personal history of transient ischemic attack (TIA), and cerebral infarction without residual deficits; Z95.810 Presence of automatic (implantable) cardiac defibrillator; Z99.89 Dependence on other enabling machines and devices; I25.10 Atherosclerotic heart disease of native coronary artery without angina pectoris; I12.9 Hypertensive chronic kidney disease with stage 1 through stage 4 chronic kidney disease, or unspecified chronic kidney disease
CPT/HCPCS: 43239; 88305; 88342; J2405

== ENCOUNTER → 2025-05-12 | Outpatient (CLI) | payer MEDICARE, OTHER, SELFPAY ==
[2025-05-12 12:52] LABS: Absolute Lymphocyte Count 1.07 X10^3/uL (0.83-4.51); Absolute Neutrophil Count 2.9 X10^3/uL (2.0-7.7); Basophil# 0.02 X10^3/uL; Basophil% 0.4 % (0-1); Eosinophil# 0.12 X10^3/uL; Eosinophils% 2.5 % (0-5); Hematocrit 34.2 % (40-54); Hemoglobin 10.9 g/dL (13.0-16.5); Lymphocyte # 1.07 X10^3/ul (0.83-4.51); Lymphocyte % 22.7 % (19-41); Mean Corp Hgb Conc 31.9 g/dL (32-36); Mean Corpuscular Hgb 31.2 pg (27.0-32.0); Mean Platelet Vol. 10.7 fl (6.2-12.0); Monocyte# 0.59 X10^3/uL; Monocyte% 12.5 % (0-10); NRBC Flagged by Analyzer 0 % (0-5); Neutrophil # 2.91 X10^3/uL (2.7-7.7); Neutrophil % 61.7 % (47-70); Platelet Count 197 K/mm3 (150-450); RBC Distribution Width CV 13.9 % (11.6-14.6); RBC Distribution Width SD 49.8 fl (35.1-43.9); Red Blood Count 3.49 M/mm3 (4.6-6.2); White Blood Count 4.7 K/mm3 (4.4-11.0)
[2025-05-12 13:28] LABS: ALB/GLOB Ratio 1.9 RATIO (0.9-2.4); AST(SGOT) 29 U/L (<=37); Alanine Aminotransfer ALT/SGPT 17 U/L (<=46); Albumin, Serum 3.9 g/dL (3.4-4.8); Alkaline Phosphatase 113 U/L (40-129); Anion Gap 10 (5-15); BUN 31 mg/dL (4-19); BUN/Creat Ratio 23.1 RATIO (10-20); Calcium,Total 9.3 mg/dL (7.6-11.0); Chloride 103 mmol/L (98-108); Creatinine, Serum 1.32 mg/dL (0.70-1.20); EST Glomerular Filtration Rate 54 (>60); Globulin 2.1 g/dL (2.2-4.2); Glucose 102 mg/dL (70-99); Iron 109 ug/dL (65-175); Iron Binding Capacity,Unsat 110 ug/dL (228-428); LDH 204 U/L (87-241); Potassium 4.4 mmol/L (3.3-5.1); Sodium Level 137 mmol/L (133-145); Total Bilirubin 0.77 mg/dL (0.00-1.30)
[2025-05-12 13:37] LABS: Vitamin D,25 Hydroxy 41.9 ng/mL (30-100)
[2025-05-12 13:48] LABS: Ferritin 1887 ng/mL (37-417)
[2025-05-12 14:14] LABS: Iron Binding Capacity,Total 219 ug/dL (250-450); PERCENT IRON SATURATION 49.8 % (9-55)
== END | disposition home or self-care (01) ==
PROVIDERS: Internal Medicine Medical Oncology; PCP Family Medicine Geriatric Medicine; Visit Provider Family Medicine Geriatric Medicine
DX: I10 Essential (primary) hypertension (principal); M10.9 Gout, unspecified; E55.9 Vitamin D deficiency, unspecified; D50.9 Iron deficiency anemia, unspecified
CPT/HCPCS: 36415; 80053; 82306; 82728; 83540; 83550; 83615; 84443; 84550; 85025

== ENCOUNTER → 2025-06-07 | Outpatient (CLI) | payer MEDICARE, OTHER, SELFPAY ==
[2025-06-08 11:08] LABS: H. PYLORI STOOL AG Negative (Negative)
== END | disposition home or self-care (01) ==
LOC: LABSPEC 08:41
PROVIDERS: PCP Family Medicine Geriatric Medicine; Referring Provider Student in an Organized Health Care Education/Training Program; Visit Provider Student in an Organized Health Care Education/Training Program
DX: R19.7 Diarrhea, unspecified (principal); A04.8 Other specified bacterial intestinal infections
CPT/HCPCS: 82274; 87338

== ENCOUNTER → 2025-06-15 | Outpatient (CLI) | payer MEDICARE, OTHER, SELFPAY ==
[2025-06-15 09:21] LABS: Hematocrit 33.4 % (40-54); Hemoglobin 10.8 g/dL (13.0-16.5); Immature Granulocytes Count 0.010 X10^3/uL (0.0-0.0); Mean Corp Hgb Conc 32.3 g/dL (32-36); Mean Corpuscular Volume 99.4 fL (80-94); Mean Platelet Vol. 10.8 fl (6.2-12.0); NRBC Flagged by Analyzer 0 % (0-5); Platelet Count 201 K/mm3 (150-450); RBC Distribution Width CV 13.7 % (11.6-14.6); RBC Distribution Width SD 49.7 fl (35.1-43.9); Red Blood Count 3.36 M/mm3 (4.6-6.2); White Blood Count 3.9 K/mm3 (4.4-11.0)
== END | disposition home or self-care (01) ==
LOC: LAB 08:28
PROVIDERS: PCP Family Medicine Geriatric Medicine; Referring Provider Student in an Organized Health Care Education/Training Program; Visit Provider Student in an Organized Health Care Education/Training Program
DX: D50.9 Iron deficiency anemia, unspecified (principal)
CPT/HCPCS: 36415; 85025

== ENCOUNTER 2025-09-08 07:38 | Day surgery (SDC) | payer MEDICARE, OTHER, SELFPAY ==
[2025-09-08] VITALS (7 sets, daily range): BP systolic 123–147; BP diastolic 74–91; PULSE 70–72; RESP 16–17; TEMP 36.1–36.4; O2SAT 96–98; BMI 31.6
[2025-09-08] MEDS: Lactated Ringers 1,000 ML 15 ML IV (08:00)
== END 2025-09-08 10:23 | disposition home or self-care (01) ==
LOC: EN 07:38 → AC 07:40
PROVIDERS: PCP Family Medicine Geriatric Medicine; Referring Provider Family Medicine Geriatric Medicine; Visit Provider Internal Medicine Gastroenterology
PROC: 0DJ08ZZ Inspection of Upper Intestinal Tract, Via Natural or Artificial Opening Endoscopic (ICD-10-PCS; CPT 43235; principal; 2025-09-08 08:55)
DX: K29.50 Unspecified chronic gastritis without bleeding (principal); I50.9 Heart failure, unspecified; I11.0 Hypertensive heart disease with heart failure; K44.9 Diaphragmatic hernia without obstruction or gangrene; Z87.891 Personal history of nicotine dependence; D50.0 Iron deficiency anemia secondary to blood loss (chronic); I25.10 Atherosclerotic heart disease of native coronary artery without angina pectoris; K21.9 Gastro-esophageal reflux disease without esophagitis; A04.8 Other specified bacterial intestinal infections; Z79.899 Other long term (current) drug therapy; Z79.01 Long term (current) use 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s
CPT/HCPCS: 44361; 88305; 88342; J2405

== ENCOUNTER → 2025-09-10 | Outpatient (CLI) | payer MEDICARE, OTHER, SELFPAY | END | disposition home or self-care (01) | LOC: POLAB3 11:18 | PROVIDERS: PCP Family Medicine Geriatric Medicine; Visit Provider Family Medicine Geriatric Medicine | DX: R06.2 Wheezing (principal) | CPT/HCPCS: 87631 ==

== ENCOUNTER → 2025-10-12 | Outpatient (CLI) | payer MEDICARE, OTHER, SELFPAY ==
[2025-10-12 11:21] LABS: PSA,Total - Annual Screen 0.23 ng/mL (0.02-4.00)
== END | disposition home or self-care (01) ==
PROVIDERS: PCP Family Medicine Geriatric Medicine; Referring Provider Urology; Visit Provider Urology
DX: Z12.5 Encounter for screening for malignant neoplasm of prostate (principal)
CPT/HCPCS: 36415; 84153; G0103

== ENCOUNTER → 2025-11-15 | Outpatient (CLI) | payer MEDICARE, OTHER, SELFPAY ==
[2025-11-15 12:06] LABS: Hematocrit 35.5 % (40-54); Hemoglobin 11.1 g/dL (13.0-16.5); Immature Granulocytes Count 0.020 X10^3/uL (0.0-0.0); Mean Corp Hgb Conc 31.3 g/dL (32-36); Mean Corpuscular Volume 99.7 fL (80-94); Mean Platelet Vol. 10.7 fl (6.2-12.0); NRBC Flagged by Analyzer 0 % (0-5); Platelet Count 187 K/mm3 (150-450); RBC Distribution Width CV 13.2 % (11.6-14.6); RBC Distribution Width SD 48.1 fl (35.1-43.9); Red Blood Count 3.56 M/mm3 (4.6-6.2); White Blood Count 4.8 K/mm3 (4.4-11.0)
[2025-11-15 13:22] LABS: AST(SGOT) 22 U/L (<=37); Alanine Aminotransfer ALT/SGPT 14 U/L (<=46); Albumin, Serum 3.9 g/dL (3.4-4.8); Alkaline Phosphatase 83 U/L (40-129); Anion Gap 10 (7-18); BUN 20 mg/dL (4-19); BUN/Creat Ratio 14.6 RATIO (10-20); Calcium,Total 9.0 mg/dL (7.6-11.0); Carbon Dioxide 25.1 mmol/L (20.0-29.0); Chloride 102 mmol/L (96-106); Globulin 2.1 g/dL (2.2-4.2); Glucose 125 mg/dL (70-99); Potassium 4.2 mmol/L (3.5-5.1); Uric Acid 4.0 mg/dL (3.5-7.2); Vitamin D,25 Hydroxy 40.7 ng/mL (30-100)
[2025-11-15 19:33] LABS: Xtra Tube Kwok EXTRA TUBE
== END | disposition home or self-care (01) ==
LOC: POLAB3 11:32
PROVIDERS: PCP Family Medicine Geriatric Medicine; Visit Provider Family Medicine Geriatric Medicine
DX: I10 Essential (primary) hypertension (principal); M10.9 Gout, unspecified; E55.9 Vitamin D deficiency, unspecified
CPT/HCPCS: 36415; 80053; 82306; 84443; 84550; 85025